=== PATIENT | female | born 1940 | race Asian ===

== ENCOUNTER 2022-08-11 12:06 | Inpatient (IN) | payer MEDICARE, OTHER ==
[~2022-08-11] VITALS: Ht 149.9 cm; Wt 66.2 kg
[2022-08-11 04:10] VITALS: BP 132/68
--- NOTE | 2022-08-11 17:18 | NUR ---
rt note patient rec'd trached on vent. vent settings per previous facility. portex 7 cuffed trach is patent and secured. vent alarms on and audible. bvm bedside. vent plugged in red outlet. no sob noted at this time. will continue to monitor. Addendum: 08/11/22 at 1720 by KENDALL WATSON RT Amended: Links added.
[2022-08-11] MEDS ORDERED: ATOR40TA GT (18:17)
[2022-08-11] MEDS ORDERED: MULT9LIQ5 GT (18:17)
[2022-08-11] MEDS ORDERED: CHLO473M5 MM (18:17)
[2022-08-11] MEDS ORDERED: MERO500V23 IV (18:17)
[2022-08-11] MEDS ORDERED: MODAFINIL GT (18:17)
[2022-08-11] MEDS ORDERED: BUME1TAB8 GT (18:17)
[2022-08-11] MEDS ORDERED: LACO100T2 GT (18:17)
[2022-08-11] MEDS ORDERED: METO5SOL GT (18:17)
[2022-08-11] MEDS ORDERED: VANC1PLA9 IV (18:17)
[2022-08-11] MEDS ORDERED: ACID1TAB12 GT (18:17)
[2022-08-11] MEDS ORDERED: AMAN100T GT (18:17)
[2022-08-11] MEDS ORDERED: BETH50TA2 PO (18:17)
[2022-08-11] MEDS ORDERED: ASCO-495 GT (18:17)
[2022-08-11] MEDS ORDERED: INSU100V11 SQ (18:17)
[2022-08-11] MEDS ORDERED: HYDR-4075 GT (18:17)
[2022-08-11] MEDS ORDERED: LANS30CA56 GT (18:17)
[2022-08-11] MEDS ORDERED: RIVA10TA GT (18:17)
[2022-08-11] MEDS ORDERED: IPRA3AMP23 IH (18:17)
[2022-08-11] MEDS ORDERED: LACO10SO GT (18:17)
[2022-08-11] MEDS ORDERED: METO5TAB7 GT (18:17)
[2022-08-11] MEDS ORDERED: LEVO150T8 GT (18:17)
[2022-08-11] MEDS ORDERED: CARV12.52 GT (18:17)
[2022-08-11] MEDS ORDERED: INSU100V7 SQ (18:17)
[2022-08-11] MEDS ORDERED: ACET650S26 GT (18:17)
[2022-08-11] MEDS ORDERED: NUT.237L30 GT (18:18)
--- NOTE | 2022-08-11 18:50 | NUR ---
Patient admitted from [facility] to [facility] subacute under the services of Dr. Moreno with the following diagnosis: chronic respiratory failure, ventilator dependent, CVA with L sided deficit, UTI, R lower lobe pneumonia, GT, chronic encephalopathy, DM, CAD, permanent pacemaker, hypothyroidism, hyperlipidemia, chronic anemia , biliary drain- Cavernous hemangioma. Patient does not respond to verbal stimulation, but seen opening eyes during repositioning. On ventilator with the following setting AC 12, TV 400, Peep 5, Fi02 25%, O2 sat 96%. Dr. Khan microsoft systems engineer notified of new admission and vent setting. Nos/s of respiratory distress or discomfort. Body check done, noted with sacral unstageable with excoriation and bilateral upper extremity edema. Patient on contact isolation for ESBL of urine, ESBL of biliary fluid and Covid precaution as new admission. Patient will undergo PCR testing and will be repeated in 5-7 days per guidelines. Patients son Shantanu notified of admission, informed that patient with bilateral upper extremity edema and sacral decubitus which will be referred for wound consult. Per report patient received 3 doses of Moderna Covid vaccine; 1st dose on 11/19/20, 2nd dose 12/19/20 and booster on 12/03/21. According to Shantanu(son) he does not think patient had flu vaccine and pneumococcal vaccine, however per report patient is current with flu and pneumococcal but does not have record of date of administration. Spoke and clarified with SAPNA Krause at [facility] regarding physician who will follow patient at [facility]. According to mattress spring encaser, patients daughter would like to transfer the care of patient to Dr. Moreno. Dr. Moreno notified of new admission and verified admission orders. VS 99.9, 86, 14, 144/72. Blood sugar 98mg/dl. Faxed admission orders to [facility] and [facility] pharmacy.. JAMA Bullock notified of new admission to follow-up regarding ATB per Dr. Moreno's request. Endorsed. Dr. Khan, microsoft systems engineer informed of new admission.
--- NOTE | 2022-08-11 20:00 | NUR ---
Patient seen by Carlos Grimes NP for ID with orders to continue Vancomycin 1 gm Q12 hrs and Merrem 500 mg Q6 hrs x 7 days for ESBL urine and biliary fluid.
[2022-08-11] MEDS ORDERED: RIVAROXABAN 15 MG TABLET GT SCH (21:00)
[2022-08-11] MEDS: METOCLOPRAMIDE HCL 10 MG/10 ML UDC GT SCH (21:00)
[2022-08-11] MEDS: PANTOPRAZOLE 40 MG/PACK PACK GT SCH (21:00)
[2022-08-11] MEDS: LACOSAMIDE ORAL SOLN 50 MG/5 ML UDC GT SCH (21:00)
[2022-08-11 21:02] VITALS: BP 139/70
[2022-08-11] MEDS ORDERED: hydrALAZINE HCL 10 MG TABLET GT PRN (21:30)
[2022-08-11] MEDS ORDERED: VANCOMYCIN 1 GM in IV D5W 250ml IV ONE (22:00)
[2022-08-11] MEDS ORDERED: MEROPENEM 500 MG in IV NS 0.9% 50 ML IV ONE (22:00)
[2022-08-11] MEDS: INSULIN GLARGINE, 100 UNIT/ML CARTRIDGE SQ SCH (22:00)
[2022-08-11] MEDS ORDERED: ATORVASTATIN 10 MG TABLET GT SCH (22:00)
[2022-08-12 00:02] VITALS: BP 138/68
[2022-08-12] MEDS: BLOOD SUGAR DIAGNOSTIC 1 EACH STRIP IN SCH ×4 (00:19→18:00)
[2022-08-12] MEDS: ALBUTEROL FS 2.5 MG/0.5 ML VIAL.NEB NEB SCH ×4 (01:49→19:44)
[2022-08-12 04:10] VITALS: BP 132/68
[2022-08-12] MEDS: MEROPENEM 500 MG in IV NS 0.9% 100 ML IV SCH ×3 (05:45)
--- NOTE | 2022-08-12 07:10 | NUR ---
WOUND CARE CONSULT: PT SEEN FOR SKIN ASSESSMENT AND NOTED TO HAVE DUSKY COLOR TO HEELS, DISCOLORATION WITH EDEMA TO UPPER EXTREMITIES, RASH TO GROIN FOLDS AND PERINUEM, NEPHROSTOMY TUBE RT FLANK AREA, G TUBE, KIMBALL CATHETER, TRACH AND SACRAL UNSTAGEABLE PRESSURE ULCER, ALL PRESENT ON ADMISSION. RECOMMEND SURGICAL CONSULT. DR PATRICIA HERRON TO BE CALLED THIS AM. RECOMMENDATIONS MADE FOR SKIN PROTECTION AND WOUND CARE INCLUDING DAKINS MOISTENED KERLIX FOR SACRAL WOUND AND COVER WITH OPTIFOAM SACRAL DRESSING, LOTRIMIN CREAM FOR RASH, Z GUARD MOISTURE BARRIER AND LOW AIRLOSS MATTRESS (ALL ON ORDER). DISCUSSED WOUND CARE AND SKIN PROTECTION RECOMMENDATIONS WITH NURSINNG STAFF. PT NOTED TO BE INCONTINENT OF LOOSE STOOLS. MD IN AGREEMENT WITH PLAN OF CARE.
[2022-08-12] MEDS ORDERED: LEVOTHYROXINE SODIUM 100 MCG TABLET PO SCH (07:30)
[2022-08-12 07:51] VITALS: BP 145/67
--- NOTE | 2022-08-12 08:30 | NUR ---
Notified Dr Moreno that Novolog is not available from the pharmacy, regular insulin is available. Dr Moreno ordered to change Novolog to regular insulin with the same sliding scale.
--- NOTE | 2022-08-12 08:30 | NUR ---
Informed Dr Khan that pt has a Portex #7 trach but a different model than the available Portex #[address] Khan said it is fine to change the trach to the available Portex #7. Notified RT Adam. Dr Khan also ordered ABG and CXR.
[2022-08-12] MEDS: METOCLOPRAMIDE HCL 10 MG/10 ML UDC GT SCH ×2 (08:55→20:52)
[2022-08-12] MEDS: PANTOPRAZOLE 40 MG/PACK PACK GT SCH ×2 (08:55→20:52)
[2022-08-12] MEDS: MULTIVITAMINS,THERAGRAN 1 UDTAB TABLET GT SCH (08:55)
[2022-08-12] MEDS: ACIDOPHILUS/BULGARICUS 1 EACH TAB.CHEW GT SCH ×2 (08:55→20:52)
[2022-08-12] MEDS: ASCORBIC ACID SYRUP 500 MG/5 ML UDC GT SCH (08:55)
[2022-08-12] MEDS: Z GUARD REMEDY 2 OZ OINT TP SCH ×2 (08:55→21:25)
[2022-08-12] MEDS: MODAFINIL 100 MG TABLET GT SCH (08:55)
[2022-08-12] MEDS: BUMETANIDE (1 MG) 1 MG TABLET GT SCH (09:00)
[2022-08-12] MEDS ORDERED: RIVAROXABAN 15 MG TABLET GT SCH (09:00)
[2022-08-12] MEDS ORDERED: LACOSAMIDE ORAL SOLN 50 MG/5 ML UDC GT SCH (09:00)
[2022-08-12] MEDS: CLOTRIMAZOLE 1% 15 GM TUBE TP SCH ×2 (09:00→21:00)
[2022-08-12] MEDS: METOLAZONE 2.5 MG TABLET GT SCH (09:00)
[2022-08-12] MEDS ORDERED: BETHANECHOL CHLORIDE (25 MG) 25 MG TABLET GT SCH (09:00)
[2022-08-12] MEDS: DAKINS QUARTER STRENGTH (0.125%) 480 ML BOTTLE TOP SCH (09:00)
[2022-08-12] MEDS: AMANTADINE SUSP 50 MG/5 ML UDC GT SCH (09:00)
--- NOTE | 2022-08-12 09:05 | NUR ---
Received recommendations from CONCHIS Ross. Relayed recommendations to Dr Moreno. He ordered to increase GT feeding Glucerna 1.2 from 35 to 75 mL/hr x 20 hours a day, give Prostat 30 mL GT BID, MVI with minerals, Vitamin C and zinc sulfate. Also received order to give Acetaminophen 650 mg GT daily 30 minutes prior to wound treatment.
[2022-08-12] MEDS: HYDROGEN PEROXIDE 480 ML BOTTLE TP SCH ×2 (09:24→20:09)
[2022-08-12 09:49] LABS: CALCIUM, SERUM 8.4 mg/dL (8.5-10.1); CARBON DIOXIDE 23 mmol/L (21-32); CHLORIDE 101 mmol/L (98-107); CREATININE 0.5 mg/dL (0.6-1.3); GLUCOSE 139 mg/dL (74-106); POTASSIUM 3.8 mmol/L (3.5-5.1); SODIUM SERUM 132 mmol/L (136-145); UREA NITROGEN, BLOOD 21 mg/dL (7-18)
[2022-08-12] MEDS ORDERED: VANCOMYCIN 1 GM in IV D5W 250 ML IV SCH (10:00)
[2022-08-12] MEDS ORDERED: GLUCERNA 1.2 1,000 ML BOTTLE GT SCH (10:30)
[2022-08-12 10:46] LABS: BASOPHILS # (AUTO) 0.1 K/uL (0.0-0.2); BASOPHILS % (AUTO) 0.7 % (0.0-2.0); EOSINOPHILS % (AUTO) 2.7 % (0.0-6.0); HEMATOCRIT 28 % (33-45); HEMOGLOBIN 9.3 g/dL (11.5-14.8); LYMPHOCYTES # (AUTO) 1.5 K/uL (0.8-4.8); LYMPHOCYTES % (AUTO) 18.3 % (20.0-44.0); MEAN CORPUSCULAR HGB CONC 33 g/dl (31.0-36.0); MEAN CORPUSCULAR VOLUME 99 fL (82-100); MONOCYTES # (AUTO) 0.6 K/uL (0.1-1.30); MONOCYTES % (AUTO) 7.3 % (2.0-12.0); NEUTROPHILS # (AUTO) 5.7 K/uL (1.8-8.9); PLATELET COUNT (AUTO) 312 K/uL (150-450); RED BLOOD CELL COUNT(AUTO) 2.88 MIL/uL (4.0-5.2)
[2022-08-12] MEDS: VANCOMYCIN 1 GM in IV D5W 250 ML IV SCH ×2 (10:52→22:00)
--- NOTE | 2022-08-12 11:00 | NUR ---
Called son, Nagibrayan Wilburn, and discussed Subacute Baseline Resident Care Plan over the phone. Son thankful for information and said he will visit soon.
--- NOTE | 2022-08-12 11:00 | NUR ---
Pt on droplet and contact isolation for Covid precaution, contact isolation for ESBL urine, ESBL biliary drain, ESBL wound, MDRO E coli sputum. Education provided to staff regarding isolation precautions, use of PPEs, proper hand hygiene.
--- NOTE | 2022-08-12 11:25 | NUR ---
Seen by Dr Moreno. Relayed BMP result to him. He ordered to do CBC for baseline. He also clarified Xarelto. According to medical records from [facility], pt was receiving Xarelto 20 mg daily instead of 15 mg BID. Medication administration record dated 08/11/20 also showed pt received Xarelto [address] Moreno ordered to DC Xarelto 15 mg BID and change to 20 mg daily.
[2022-08-12] MEDS ORDERED: BETHANECHOL CHLORIDE (25 MG) 25 MG TABLET GT PRN (11:48)
[2022-08-12] MEDS: MEROPENEM 500 MG in IV NS 0.9% 50 ML IV SCH ×3 (12:00→23:55)
[2022-08-12] MEDS: CARVEDILOL 6.25 MG TABLET GT SCH ×2 (12:00→20:52)
[2022-08-12 12:11] VITALS: BP 132/65
--- NOTE | 2022-08-12 12:22 | NUR ---
Relayed ABG result to Dr Khan. No new order.
[2022-08-12] MEDS ORDERED: DEXTROSE 50%-WATER 50 ML DISP.SYRIN IV PRN (13:00)
[2022-08-12] MEDS ORDERED: RIVAROXABAN 10 MG TABLET PO SCH ×3 (13:00→18:00)
[2022-08-12] MEDS: INSULIN REGULAR, HUMAN 100 UNIT/ML 3 ML VIAL SQ PRN ×3 (13:12→19:06)
--- NOTE | 2022-08-12 13:52 | NUR ---
Called pt's son Shantanu to offer bivalent Covid, influenza, and pneumococcal vaccines. Left message.
--- NOTE | 2022-08-12 14:12 | NUR ---
RT NOTE: PT TRACH CHANGE WAS NOT DONE BECAUSE THE INNER CANULA IS THE SAME WHAT WE HAVE. INITIALLY THE TRACH CHANGE WAS REQUESTED BECAUSE ASSUMPTION THAT THE PT CURRENT TRACH IS NOT COMPATIBLE WITH WHAT WE HAVE. CHARGE NURSE JOHN WAS NOTIFIED.
--- NOTE | 2022-08-12 16:30 | NUR ---
INTAKE PAPERWORK: SUNDAY called the pt.'s ", Zach Wilburn [phone] and it sounds disconnected. SUNDAY called the pt.'s son, Nagi Wilburn [phone] who stated he is the responsible constitution party for the pt. SUNDAY called Nagi to review the intake paperwork: (Patient Right's Acknowledgement, Documentation of Preferred Intensity of Care, Conditions of Admission, [facility] Agreement, and Voluntary Prior Express Consent form and An Important Message from Medicare) and gather collateral information. Nagi stated that the pt. 's code status should be Full Code: Maximum Treatment and CPR. Nagi stated it was not a good time to speak extensively. SUNDAY will call Nagi another time to complete biopsychosocial assessment. Nagi requested SW leave Intake paperwork in pt.'s chart so he may sign it upon visiting. SUNDAY placed intake paperwork in chart and notified charge nurse, Laya. SUNDAY will provide Nagi & family with Bill of Rights, visitation guidelines, vaccination information as needed and [facility] educational material.
[2022-08-12] MEDS ORDERED: PROSOURCE / PROSTAT (PYXIS) 30 ML UDC GT SCH (17:00)
[2022-08-12] MEDS: PROSOURCE / PROSTAT (PYXIS) 30 ML UDC GT SCH (17:00)
[2022-08-12] MEDS: LACOSAMIDE ORAL SOLN 50 MG/5 ML UDC GT SCH ×2 (18:00→21:25)
--- NOTE | 2022-08-12 18:10 | NUR ---
Shantanu Wilburn called back. Offered influenza, pneumococcal, and bivalent Covid vaccines. He said his sister is the one making medical decisions. Called Tana but she did not answer.
--- NOTE | 2022-08-12 19:10 | NUR ---
Vimpat and Coreg were not administered at 0900 as scheduled due to unavailability. Charge nurse called the pharmacy to ask for medications, pt's RN also called pharmacy for medications. Pt's RN asked 2 pharmacy technicians as well. Vimpat was loaded in the [employer] late this afternoon and was administered. Pt was stable throughout this shift. Addendum: 08/12/22 at 1925 by KRISTAN THOMPSON RN Synthroid was also not available, also asked pharmacy for it.
[2022-08-12] MEDS ORDERED: TUBERCULIN,PURIF.PROT.DERIV. 5 TU/0.1 ML VIAL ID ONE (20:00)
[2022-08-12 20:54] VITALS: BP 141/68
[2022-08-12 20:58] VITALS: BP 104/50
[2022-08-12] MEDS ORDERED: ATORVASTATIN 40 MG TABLET ONE (21:00)
[2022-08-12] MEDS: TRIAMCINOLONE ACETONIDE 0.1% CR 15 GM TUBE TP SCH (21:00)
[2022-08-12] MEDS: VITAMINS A AND D 56.7 GM TUBE TP SCH ×2 (21:25→21:26)
[2022-08-12] MEDS: INSULIN GLARGINE, 100 UNIT/ML CARTRIDGE SQ SCH (21:26)
[2022-08-12] MEDS: ATORVASTATIN 40 MG TABLET GT SCH (21:26)
[2022-08-13] MEDS: BLOOD SUGAR DIAGNOSTIC 1 EACH STRIP IN SCH ×5 (00:10→23:25)
[2022-08-13] MEDS: INSULIN REGULAR, HUMAN 100 UNIT/ML 3 ML VIAL SQ PRN ×5 (00:14→23:26)
[2022-08-13 00:32] VITALS: BP 142/67
[2022-08-13] MEDS: ALBUTEROL FS 2.5 MG/0.5 ML VIAL.NEB NEB SCH ×4 (01:34→18:48)
[2022-08-13 04:30] VITALS: BP 138/60
[2022-08-13] MEDS: MEROPENEM 500 MG in IV NS 0.9% 50 ML IV SCH ×3 (05:46→18:02)
[2022-08-13] MEDS: LEVOTHYROXINE SODIUM 75 MCG TABLET PO SCH (07:30)
[2022-08-13 07:34] VITALS: BP 155/76
[2022-08-13] MEDS: HYDROGEN PEROXIDE 480 ML BOTTLE TP SCH ×2 (07:47→20:22)
--- NOTE | 2022-08-13 08:55 | NUR ---
RT Pt received on ordered vent settings. Breathing tx is given and tolerated well. Pt is suctioned. Trach patent and secured. Vent plugged into red outlet. Ambu bag and back up trach at bedside. Alarms are set and audible. No SOB or respiratory distress noted at this time. will continue to monitor
[2022-08-13] MEDS: PANTOPRAZOLE 40 MG/PACK PACK GT SCH ×2 (09:00→21:11)
[2022-08-13] MEDS: ACETAMINOPHEN 650 MG/20 ML UDC- SA PATIENTS-PAIN ONLY GT SCH (09:00)
[2022-08-13] MEDS: PROSOURCE / PROSTAT (PYXIS) 30 ML UDC GT SCH ×2 (09:00→17:31)
[2022-08-13] MEDS: MODAFINIL 100 MG TABLET GT SCH (09:00)
[2022-08-13] MEDS: BUMETANIDE (1 MG) 1 MG TABLET GT SCH (09:00)
[2022-08-13] MEDS ORDERED: ASCORBIC ACID 500 MG TABLET GT SCH (09:00)
[2022-08-13] MEDS: ACIDOPHILUS/BULGARICUS 1 EACH TAB.CHEW GT SCH ×2 (09:00→21:11)
[2022-08-13] MEDS: CARVEDILOL 6.25 MG TABLET GT SCH ×2 (09:00→21:11)
[2022-08-13] MEDS: AMANTADINE SUSP 50 MG/5 ML UDC GT SCH (09:00)
[2022-08-13] MEDS: MULTIVITAMINS,THERAGRAN 1 UDTAB TABLET GT SCH (09:00)
[2022-08-13] MEDS: METOLAZONE 2.5 MG TABLET GT SCH (09:00)
[2022-08-13] MEDS: LACOSAMIDE ORAL SOLN 50 MG/5 ML UDC GT SCH ×2 (09:00→21:11)
[2022-08-13] MEDS: METOCLOPRAMIDE HCL 10 MG/10 ML UDC GT SCH ×2 (09:00→21:11)
[2022-08-13] MEDS: ZINC SULFATE 220 MG CAPSULE GT SCH (09:00)
[2022-08-13] MEDS: ASCORBIC ACID SYRUP 500 MG/5 ML UDC GT SCH (09:00)
[2022-08-13] MEDS: RIVAROXABAN 10 MG TABLET PO SCH (09:00)
--- NOTE | 2022-08-13 09:19 | NUR ---
Notified by laboratory staff that they are having difficulty obtaining blood sample for Vanco level, notified [facility] pharmacist who said to hold Vancomycin until level is obtain.
[2022-08-13] MEDS: DAKINS QUARTER STRENGTH (0.125%) 480 ML BOTTLE TOP SCH ×2 (10:00→21:16)
[2022-08-13] MEDS: Z GUARD REMEDY 2 OZ OINT TP SCH ×3 (10:00→21:13)
[2022-08-13] MEDS: VITAMINS A AND D 56.7 GM TUBE TP SCH ×4 (10:00→21:14)
[2022-08-13] MEDS: TRIAMCINOLONE ACETONIDE 0.1% CR 15 GM TUBE TP SCH ×2 (10:00→21:11)
[2022-08-13] MEDS: CLOTRIMAZOLE 1% 15 GM TUBE TP SCH ×2 (10:00→21:11)
[2022-08-13 10:09] LABS: ABG BASE EXCESS -0.2 mmol/L; ABG OXYGEN SATURATION 95.8 % (92.0-98.5); ABG PCO2 30.1 mmHg (35.0-45.0); ABG PH 7.491 (7.350-7.450); ABG PO2 81.5 mmHg (75.0-100.0); COHb 0.3 % (0.5-1.5); O2Hb 95.5 % (94.0-97.0); SITE, ABG Left Radial; VENT MODE, BG AC 12 400 +5 25%
[2022-08-13 10:27] LABS: CALCIUM, SERUM 8.5 mg/dL (8.5-10.1); CARBON DIOXIDE 26 mmol/L (21-32); CHLORIDE 99 mmol/L (98-107); CREATININE 0.5 mg/dL (0.6-1.3); GLUCOSE 132 mg/dL (74-106); POTASSIUM 3.3 mmol/L (3.5-5.1); SODIUM SERUM 134 mmol/L (136-145); UREA NITROGEN, BLOOD 22 mg/dL (7-18)
[2022-08-13] MEDS: VANCOMYCIN 1 GM in IV D5W 250 ML IV SCH (11:30)
[2022-08-13 11:40] VITALS: BP 97/52
[2022-08-13 11:43] VITALS: BP 135/73
--- NOTE | 2022-08-13 11:49 | NUR ---
SS NOTE: SW called the pt.'s son, Nagi Wilburn [phone] to invite him to participate in today IDT meeting and laso complete the biopsychosocial assessment. Call went to voicemail and SW relayed information and asked if he as time today to complete assessment with SW. SW will be available as needed.
--- NOTE | 2022-08-13 13:44 | NUR ---
Dr. Khan reviewed BMP result with K+ 3.3, Na134, BUN 22, Creat 0.5. New order given to give KCL 40 meq. x1 via GT. It was also discussed current feeding order which is at 75cc/hr. Upon review of patient's labs, physical condition, trailer sections assembler recommended to feeding to 50cc/hr. and will gradually increase as tolerated until patient reaches nutritional goal.
--- NOTE | 2022-08-13 13:53 | NUR ---
Vancomycin 1gm. held due to Vanco level trough of 23 ug/ml Pharmacy adjusted and decrease dose to Vancomycin 750 mg. IV q 12 hours to complete total of 7 days. Order carried out.
--- NOTE | 2022-08-13 14:23 | NUR ---
INTERDISCIPLINARY PLAN OF CARE CONFERENCE took place today. The pt.'s son, Nagi Wilburn [phone] Khan and Interdisciplinary team discussed the plan of care in detail. Current orders as well as treatments and medications were reviewed. Per CRN, the tp. has pacemaker and information needed about it. SW will follow up.
[2022-08-13] MEDS: VANCOMYCIN HCL 0.75 GM in IV D5W 250 ML IV SCH (14:42)
[2022-08-13] MEDS: GLUCERNA 1.2 1,000 ML BOTTLE GT SCH (14:42)
[2022-08-13] MEDS ORDERED: POTASSIUM CHLORIDE 20 MEQ POWDER PACKET GT ONE (15:00)
--- NOTE | 2022-08-13 16:56 | NUR ---
Pacemaker update: Per responsible alliance party, Nagi's request. SW called : [facility] [[address] [place] [address] ] where pt. was residing before and spoke to the SW about mailing the pacemaker monitor to [facility]. SW stated they would mail to to [facility] on Tuesday. noted.
--- NOTE | 2022-08-13 16:58 | NUR ---
Daughter: Gloria Larson [phone] who resides in [place] may also be contacted, per Nagi.
--- NOTE | 2022-08-13 17:00 | NUR ---
Visitation Guidelines & vaccine information: SUNDAY educated the pt.'s son, Shantanu Wilburn [phone] over the phone prior to his visit today at 6 pm on visitation guidelines and he expressed understating and stated he would provide the necessary document for visiting. SUNDAY printed the visitation guidelines, pneumonia vaccine information sheet, flu vaccine information sheet and left it with intake paperwork for pt.'s son to pick remover today upon his visit at 6 pm.
--- NOTE | 2022-08-13 17:01 | NUR ---
SS assessment: SUNDAY completed biopsychosocial assessment with the pt.'s son, Nagi [phone] who provided pt.'s history. Nagi stated he will be visiting the pt. buck between 6-8 pm and he will be signing the intake paperwork. SUNDAY notified marketing secretary, Bobbi about visit and charge nurse, Hayden about paperwork, medical records form to be signed and pacemaker status. Pt. met with pt. at bedside on 08/11/2022. The pt. appears well-groomed with eyes closed. Pt. did not respond to name or verbal cues. Pt. is non-communicative. Pt. has trach to vent with g-tube feeding. The pt. will be referred for dental, and optometry exams as needed.
--- NOTE | 2022-08-13 18:22 | NUR ---
Resident's son Shantanu visited and signed admission paper works. Patient's daughter Tana called and answered questions regarding patient's overall condition, medications, antibiotic order, isolation, infection and skin condition. Asked daughter regarding when and where biliary drain was placed; if patient has current flu and pneumococcal vaccine and if patient is current with her Covid vaccine. According to Tana, patient's biliary drain was placed at [facility] sometime in May towards the end of her stay. She suggested to contact [facility] to get the flu and pneumococcal vaccine information. She said she is not sure if patient received it, however if patient did not receive flu and pneumococcal at [facility] this season she is giving consent for the facility to administer it. Tana said patient received a 4th dose of Covid vaccine at [facility] in [facility] in [place]. Will have SSD follow-up and request information from [facility] and [facility] on Tuesday. Endorsed.
[2022-08-13 19:16] VITALS: BP 129/65
--- NOTE | 2022-08-13 20:35 | NUR ---
RT NOTE RECEIVED PT ON MD ORDERED [facility] VENT SETTINGS. TX GIVEN, PRN SX DONE. DENTAL EQUIPMENT REPAIRER PREFORMED. VENT PLUGGED INTO RED OUTLET. AMBUBAG AND BACKUP 7.0 PORTEX TRACH BY BEDSIDE. NO S/S OF RESPIRATORY DISTRESS NOTED.
[2022-08-13] MEDS: SILVER SULFADIAZINE CREAM 25 GM TUBE TP SCH (21:14)
[2022-08-13] MEDS: ATORVASTATIN 40 MG TABLET GT SCH (21:14)
[2022-08-13] MEDS: INSULIN GLARGINE, 100 UNIT/ML CARTRIDGE SQ SCH (21:15)
[2022-08-14 00:25] VITALS: BP 132/60
[2022-08-14] MEDS: ALBUTEROL FS 2.5 MG/0.5 ML VIAL.NEB NEB SCH ×4 (00:44→19:56)
[2022-08-14] MEDS: VANCOMYCIN HCL 0.75 GM in IV D5W 250 ML IV SCH ×2 (02:00→14:58)
[2022-08-14 04:15] VITALS: BP 133/56
[2022-08-14] MEDS: BLOOD SUGAR DIAGNOSTIC 1 EACH STRIP IN SCH ×4 (05:32→23:37)
[2022-08-14] MEDS: INSULIN REGULAR, HUMAN 100 UNIT/ML 3 ML VIAL SQ PRN ×4 (05:32→23:38)
[2022-08-14 05:33] VITALS: BP 127/64
[2022-08-14] MEDS: MEROPENEM 500 MG in IV NS 0.9% 50 ML IV SCH ×5 (05:53→18:27)
[2022-08-14 07:21] VITALS: BP 135/55
[2022-08-14 07:47] LABS: CALCIUM, SERUM 8.3 mg/dL (8.5-10.1); CARBON DIOXIDE 27 mmol/L (21-32); CHLORIDE 98 mmol/L (98-107); CREATININE 0.5 mg/dL (0.6-1.3); GLUCOSE 132 mg/dL (74-106); POTASSIUM 3.2 mmol/L (3.5-5.1); SODIUM SERUM 133 mmol/L (136-145); UREA NITROGEN, BLOOD 29 mg/dL (7-18)
[2022-08-14] MEDS: LEVOTHYROXINE SODIUM 75 MCG TABLET PO SCH (07:58)
[2022-08-14] MEDS ORDERED: LEVOTHYROXINE SODIUM 75 MCG TABLET PO SCH (08:09)
[2022-08-14] MEDS: ACETAMINOPHEN 650 MG/20 ML UDC- SA PATIENTS-PAIN ONLY GT SCH (08:12)
[2022-08-14] MEDS: AMANTADINE SUSP 50 MG/5 ML UDC GT SCH (08:12)
[2022-08-14] MEDS: METOCLOPRAMIDE HCL 10 MG/10 ML UDC GT SCH ×2 (08:12→20:52)
[2022-08-14] MEDS: MODAFINIL 100 MG TABLET GT SCH (08:12)
[2022-08-14] MEDS: RIVAROXABAN 10 MG TABLET PO SCH (08:12)
[2022-08-14] MEDS: ZINC SULFATE 220 MG CAPSULE GT SCH (08:12)
[2022-08-14] MEDS: ACIDOPHILUS/BULGARICUS 1 EACH TAB.CHEW GT SCH ×2 (08:12→20:52)
[2022-08-14] MEDS: LACOSAMIDE ORAL SOLN 50 MG/5 ML UDC GT SCH ×2 (08:12→20:53)
[2022-08-14] MEDS: BUMETANIDE (1 MG) 1 MG TABLET GT SCH (08:12)
[2022-08-14] MEDS: MULTIVITAMINS,THERAGRAN 1 UDTAB TABLET GT SCH (08:12)
[2022-08-14] MEDS: PROSOURCE / PROSTAT (PYXIS) 30 ML UDC GT SCH ×2 (08:12→17:11)
[2022-08-14] MEDS: CARVEDILOL 6.25 MG TABLET GT SCH ×2 (08:12→20:52)
[2022-08-14] MEDS: PANTOPRAZOLE 40 MG/PACK PACK GT SCH ×2 (08:12→20:52)
[2022-08-14] MEDS: METOLAZONE 2.5 MG TABLET GT SCH (08:12)
[2022-08-14] MEDS: HYDROGEN PEROXIDE 480 ML BOTTLE TP SCH ×2 (08:21→19:56)
[2022-08-14] MEDS: DAKINS QUARTER STRENGTH (0.125%) 480 ML BOTTLE TOP SCH ×2 (08:59→21:00)
[2022-08-14] MEDS: VITAMINS A AND D 56.7 GM TUBE TP SCH ×4 (08:59→21:00)
[2022-08-14] MEDS: SILVER SULFADIAZINE CREAM 25 GM TUBE TP SCH ×2 (08:59→21:00)
[2022-08-14] MEDS: CLOTRIMAZOLE 1% 15 GM TUBE TP SCH ×2 (08:59→20:57)
[2022-08-14] MEDS: Z GUARD REMEDY 2 OZ OINT TP SCH ×4 (08:59→21:00)
[2022-08-14] MEDS: TRIAMCINOLONE ACETONIDE 0.1% CR 15 GM TUBE TP SCH ×2 (08:59→20:56)
[2022-08-14 11:17] VITALS: BP 112/53
[2022-08-14] MEDS: GLUCERNA 1.2 1,000 ML BOTTLE GT SCH (14:25)
[2022-08-14] MEDS ORDERED: POTASSIUM CHLORIDE 20 MEQ POWDER PACKET GT ONE (15:00)
--- NOTE | 2022-08-14 17:41 | NUR ---
Obtained BP 137/70 mmHg, HR 66. Parameter for Hydralazine PRN medication not met. Will endorse to incoming NOC nurse.
[2022-08-14 20:09] VITALS: BP 160/76
[2022-08-14] MEDS: INSULIN GLARGINE, 100 UNIT/ML CARTRIDGE SQ SCH (21:13)
[2022-08-14] MEDS: ATORVASTATIN 40 MG TABLET GT SCH (21:14)
[2022-08-15] MEDS: MEROPENEM 500 MG in IV NS 0.9% 50 ML IV SCH ×4 (00:16→17:44)
[2022-08-15 00:59] VITALS: BP 116/57
[2022-08-15] MEDS: ALBUTEROL FS 2.5 MG/0.5 ML VIAL.NEB NEB SCH ×4 (01:50→19:50)
[2022-08-15] MEDS: VANCOMYCIN HCL 0.75 GM in IV D5W 250 ML IV SCH ×2 (03:23→14:06)
[2022-08-15] MEDS: BLOOD SUGAR DIAGNOSTIC 1 EACH STRIP IN SCH ×3 (05:32→18:46)
[2022-08-15] MEDS: LEVOTHYROXINE SODIUM 75 MCG TABLET PO SCH (05:33)
[2022-08-15] MEDS: INSULIN REGULAR, HUMAN 100 UNIT/ML 3 ML VIAL SQ PRN ×3 (05:36→18:48)
[2022-08-15 07:14] VITALS: BP 127/42
[2022-08-15 08:03] LABS: CALCIUM, SERUM 8.4 mg/dL (8.5-10.1); CARBON DIOXIDE 30 mmol/L (21-32); CHLORIDE 97 mmol/L (98-107); CREATININE 0.5 mg/dL (0.6-1.3); GLUCOSE 119 mg/dL (74-106); POTASSIUM 3.2 mmol/L (3.5-5.1); SODIUM SERUM 132 mmol/L (136-145); UREA NITROGEN, BLOOD 30 mg/dL (7-18)
[2022-08-15] MEDS: HYDROGEN PEROXIDE 480 ML BOTTLE TP SCH ×2 (09:03→19:50)
[2022-08-15] MEDS: BUMETANIDE (1 MG) 1 MG TABLET GT SCH (09:03)
[2022-08-15] MEDS: MODAFINIL 100 MG TABLET GT SCH (09:04)
[2022-08-15] MEDS: CARVEDILOL 6.25 MG TABLET GT SCH ×2 (09:04→21:41)
[2022-08-15] MEDS: PANTOPRAZOLE 40 MG/PACK PACK GT SCH ×2 (09:05→21:41)
[2022-08-15] MEDS: METOLAZONE 2.5 MG TABLET GT SCH (09:05)
[2022-08-15] MEDS: METOCLOPRAMIDE HCL 10 MG/10 ML UDC GT SCH ×2 (09:05→21:41)
[2022-08-15] MEDS: RIVAROXABAN 10 MG TABLET PO SCH (09:07)
[2022-08-15] MEDS: ZINC SULFATE 220 MG CAPSULE GT SCH (09:07)
[2022-08-15] MEDS: Z GUARD REMEDY 2 OZ OINT TP SCH ×4 (09:08→21:42)
[2022-08-15] MEDS: DAKINS QUARTER STRENGTH (0.125%) 480 ML BOTTLE TOP SCH ×2 (09:08→21:41)
[2022-08-15] MEDS: ASCORBIC ACID 500 MG TABLET GT SCH (09:08)
[2022-08-15] MEDS: CLOTRIMAZOLE 1% 15 GM TUBE TP SCH ×2 (09:08→21:42)
[2022-08-15] MEDS: TRIAMCINOLONE ACETONIDE 0.1% CR 15 GM TUBE TP SCH ×2 (09:08→21:42)
[2022-08-15] MEDS: VITAMINS A AND D 56.7 GM TUBE TP SCH ×4 (09:12→21:43)
[2022-08-15] MEDS: MULTIVITAMINS,THERAGRAN 1 UDTAB TABLET GT SCH (09:12)
[2022-08-15] MEDS: SILVER SULFADIAZINE CREAM 25 GM TUBE TP SCH ×2 (09:12→21:42)
[2022-08-15] MEDS: PROSOURCE / PROSTAT (PYXIS) 30 ML UDC GT SCH ×2 (09:12→17:45)
[2022-08-15] MEDS: ACIDOPHILUS/BULGARICUS 1 EACH TAB.CHEW GT SCH ×2 (09:12→21:41)
[2022-08-15] MEDS: AMANTADINE SUSP 50 MG/5 ML UDC GT SCH (09:17)
[2022-08-15] MEDS: LACOSAMIDE ORAL SOLN 50 MG/5 ML UDC GT SCH ×2 (09:18→21:41)
[2022-08-15] MEDS: ACETAMINOPHEN 650 MG/20 ML UDC- SA PATIENTS-PAIN ONLY GT SCH (09:18)
--- NOTE | 2022-08-15 10:18 | NUR ---
Pt. received on ordered vent settings. Breathing tx. is given and tolerated well. Sx 2x + PRN. Trach is patent, midline and secured. Vent plugged into red outlet. Ambu bag and back up trach at bedside. Alarms are set and audible. No SOB or respiratory distress noted at this time. Will keep monitor the pt.
--- NOTE | 2022-08-15 11:30 | NUR ---
Called and notified Dr. Moreno regarding lab results, pharmacy has recommendation to give 40 meq klor con powder packet via GT X 1 dose only for K+ 3.2. Dr. Moreno agreed to it. New order noted and carried out.
[2022-08-15 11:44] VITALS: BP 113/52
[2022-08-15] MEDS ORDERED: POTASSIUM CHLORIDE 20 MEQ POWDER PACKET GT ONE (14:00)
[2022-08-15 19:54] VITALS: BP 118/51
[2022-08-15] MEDS ORDERED: LACOSAMIDE ORAL SOLN 50 MG/5 ML UDC ONE (20:42)
[2022-08-15] MEDS: ATORVASTATIN 40 MG TABLET GT SCH (21:43)
[2022-08-15] MEDS: INSULIN GLARGINE, 100 UNIT/ML CARTRIDGE SQ SCH (21:47)
[2022-08-16] MEDS: INSULIN REGULAR, HUMAN 100 UNIT/ML 3 ML VIAL SQ PRN ×3 (00:51→17:50)
[2022-08-16] MEDS: BLOOD SUGAR DIAGNOSTIC 1 EACH STRIP IN SCH ×4 (00:51→17:09)
[2022-08-16] MEDS: ALBUTEROL FS 2.5 MG/0.5 ML VIAL.NEB NEB SCH ×4 (01:44→19:00)
[2022-08-16] MEDS: VANCOMYCIN HCL 0.75 GM in IV D5W 250 ML IV SCH ×2 (02:00→14:24)
[2022-08-16] MEDS: GLUCERNA 1.2 1,000 ML BOTTLE GT SCH (02:09)
[2022-08-16] MEDS: LEVOTHYROXINE SODIUM 75 MCG TABLET PO SCH (05:13)
[2022-08-16] MEDS: MEROPENEM 500 MG in IV NS 0.9% 50 ML IV SCH ×6 (06:31→23:15)
[2022-08-16 07:12] VITALS: BP 150/75
[2022-08-16] MEDS: MODAFINIL 100 MG TABLET GT SCH (08:19)
[2022-08-16] MEDS: PROSOURCE / PROSTAT (PYXIS) 30 ML UDC GT SCH ×2 (08:19→17:09)
[2022-08-16] MEDS: ACIDOPHILUS/BULGARICUS 1 EACH TAB.CHEW GT SCH ×2 (08:19→21:23)
[2022-08-16] MEDS: METOCLOPRAMIDE HCL 10 MG/10 ML UDC GT SCH ×2 (08:19→21:14)
[2022-08-16] MEDS: CARVEDILOL 6.25 MG TABLET GT SCH ×2 (08:19→21:13)
[2022-08-16] MEDS: BUMETANIDE (1 MG) 1 MG TABLET GT SCH (08:19)
[2022-08-16] MEDS: PANTOPRAZOLE 40 MG/PACK PACK GT SCH ×2 (08:19→21:13)
[2022-08-16] MEDS: MULTIVITAMINS,THERAGRAN 1 UDTAB TABLET GT SCH (08:19)
[2022-08-16] MEDS: ASCORBIC ACID 500 MG TABLET GT SCH (08:20)
[2022-08-16] MEDS: ZINC SULFATE 220 MG CAPSULE GT SCH (08:20)
[2022-08-16] MEDS: ACETAMINOPHEN 650 MG/20 ML UDC- SA PATIENTS-PAIN ONLY GT SCH (08:20)
[2022-08-16] MEDS: RIVAROXABAN 10 MG TABLET PO SCH (08:21)
[2022-08-16] MEDS: VITAMINS A AND D 56.7 GM TUBE TP SCH ×4 (08:22→21:16)
[2022-08-16] MEDS: Z GUARD REMEDY 2 OZ OINT TP SCH ×4 (08:27→21:15)
[2022-08-16] MEDS: METOLAZONE 2.5 MG TABLET GT SCH (08:27)
[2022-08-16] MEDS: LACOSAMIDE ORAL SOLN 50 MG/5 ML UDC GT SCH ×2 (09:00→21:14)
[2022-08-16] MEDS: TRIAMCINOLONE ACETONIDE 0.1% CR 15 GM TUBE TP SCH ×2 (09:00→21:15)
[2022-08-16] MEDS: AMANTADINE SUSP 50 MG/5 ML UDC GT SCH (09:00)
[2022-08-16] MEDS: CLOTRIMAZOLE 1% 15 GM TUBE TP SCH ×2 (09:00→21:15)
[2022-08-16] MEDS: DAKINS QUARTER STRENGTH (0.125%) 480 ML BOTTLE TOP SCH ×2 (09:00→21:15)
[2022-08-16] MEDS: SILVER SULFADIAZINE CREAM 25 GM TUBE TP SCH ×2 (09:00→21:16)
[2022-08-16] MEDS: HYDROGEN PEROXIDE 480 ML BOTTLE TP SCH ×2 (09:45→20:52)
[2022-08-16 12:04] VITALS: BP 140/72
--- NOTE | 2022-08-16 12:08 | NUR ---
[facility] medical Records: The pt.'s son, Nagi signed the Authorization for disclosure of health information. SUNDAY faxed paperwork to [facility] medical records dept. fax: [phone] per 's request to obtain medical records for continuity of care. SUNDAY will follow up as needed.
[2022-08-16 12:16] LABS: CALCIUM, SERUM 8.4 mg/dL (8.5-10.1); CARBON DIOXIDE 35 mmol/L (21-32); CHLORIDE 94 mmol/L (98-107); CREATININE 0.4 mg/dL (0.6-1.3); GLUCOSE 129 mg/dL (74-106); POTASSIUM 3.1 mmol/L (3.5-5.1); SODIUM SERUM 134 mmol/L (136-145); UREA NITROGEN, BLOOD 27 mg/dL (7-18)
--- NOTE | 2022-08-16 12:42 | NUR ---
SW called : [facility] [[address] [place] [address] ] medical records to obtain vaccine records and no answer. SW will call back at a later time.
--- NOTE | 2022-08-16 12:48 | NUR ---
Per CRN request SUNDAY called [facility] [[address] [place] [address]; [phone]] and requested thept.'s COVID-19 vaccinations records to be faxed to SUNDAY. Per [facility] they will fax the vaccination records to SUNDAY.
--- NOTE | 2022-08-16 14:35 | NUR ---
SUNDAY received records from [facility] regarding Moderna COVID-19 vaccine last administered on 12/03/2021 . SUNDAY notified Laya BLOCK and it was placed int pt.'s chart under misc. records.
[2022-08-16] MEDS ORDERED: POTASSIUM CHLORIDE 20 MEQ POWDER PACKET GT ONE (15:00)
[2022-08-16 20:02] VITALS: BP 127/51
[2022-08-16] MEDS: ATORVASTATIN 40 MG TABLET GT SCH (21:16)
[2022-08-16] MEDS: INSULIN GLARGINE, 100 UNIT/ML CARTRIDGE SQ SCH (21:21)
[2022-08-17] MEDS: ALBUTEROL FS 2.5 MG/0.5 ML VIAL.NEB NEB SCH ×4 (00:36→19:33)
[2022-08-17] MEDS: BLOOD SUGAR DIAGNOSTIC 1 EACH STRIP IN SCH ×4 (00:43→18:24)
[2022-08-17] MEDS: INSULIN REGULAR, HUMAN 100 UNIT/ML 3 ML VIAL SQ PRN ×4 (00:45→18:25)
[2022-08-17] MEDS: VANCOMYCIN HCL 0.75 GM in IV D5W 250 ML IV SCH ×2 (02:00→14:00)
[2022-08-17] MEDS: GLUCERNA 1.2 1,000 ML BOTTLE GT SCH (05:14)
[2022-08-17] MEDS: LEVOTHYROXINE SODIUM 75 MCG TABLET PO SCH (05:15)
[2022-08-17] MEDS: MEROPENEM 500 MG in IV NS 0.9% 50 ML IV SCH ×3 (06:00→18:00)
[2022-08-17 07:19] VITALS: BP 159/73
[2022-08-17 07:55] LABS: CALCIUM, SERUM 8.8 mg/dL (8.5-10.1); CARBON DIOXIDE 35 mmol/L (21-32); CHLORIDE 92 mmol/L (98-107); CREATININE 0.6 mg/dL (0.6-1.3); GLUCOSE 118 mg/dL (74-106); POTASSIUM 3.1 mmol/L (3.5-5.1); SODIUM SERUM 132 mmol/L (136-145); UREA NITROGEN, BLOOD 32 mg/dL (7-18)
[2022-08-17] MEDS: RIVAROXABAN 10 MG TABLET PO SCH (09:00)
[2022-08-17] MEDS: PANTOPRAZOLE 40 MG/PACK PACK GT SCH ×2 (09:00→21:46)
[2022-08-17] MEDS: PROSOURCE / PROSTAT (PYXIS) 30 ML UDC GT SCH ×2 (09:00→17:24)
[2022-08-17] MEDS: CARVEDILOL 6.25 MG TABLET GT SCH ×2 (09:00→21:46)
[2022-08-17] MEDS: AMANTADINE SUSP 50 MG/5 ML UDC GT SCH (09:00)
[2022-08-17] MEDS: MULTIVITAMINS,THERAGRAN 1 UDTAB TABLET GT SCH (09:00)
[2022-08-17] MEDS: ASCORBIC ACID 500 MG TABLET GT SCH (09:00)
[2022-08-17] MEDS: SILVER SULFADIAZINE CREAM 25 GM TUBE TP SCH (09:00)
[2022-08-17] MEDS: MODAFINIL 100 MG TABLET GT SCH (09:00)
[2022-08-17] MEDS: ACETAMINOPHEN 650 MG/20 ML UDC- SA PATIENTS-PAIN ONLY GT SCH (09:00)
[2022-08-17] MEDS: ZINC SULFATE 220 MG CAPSULE GT SCH (09:00)
[2022-08-17] MEDS: Z GUARD REMEDY 2 OZ OINT TP SCH ×5 (09:00→21:50)
[2022-08-17] MEDS: VITAMINS A AND D 56.7 GM TUBE TP SCH ×4 (09:00→21:50)
[2022-08-17] MEDS: CLOTRIMAZOLE 1% 15 GM TUBE TP SCH ×2 (09:00→21:49)
[2022-08-17] MEDS: ACIDOPHILUS/BULGARICUS 1 EACH TAB.CHEW GT SCH ×2 (09:00→21:46)
[2022-08-17] MEDS: METOCLOPRAMIDE HCL 10 MG/10 ML UDC GT SCH ×2 (09:00→21:46)
[2022-08-17] MEDS: BUMETANIDE (1 MG) 1 MG TABLET GT SCH (09:00)
[2022-08-17] MEDS: DAKINS QUARTER STRENGTH (0.125%) 480 ML BOTTLE TOP SCH ×3 (09:00→21:49)
[2022-08-17] MEDS: METOLAZONE 2.5 MG TABLET GT SCH (09:00)
[2022-08-17] MEDS: LACOSAMIDE ORAL SOLN 50 MG/5 ML UDC GT SCH ×2 (09:00→21:48)
--- NOTE | 2022-08-17 10:45 | NUR ---
Called pt's daughter to offer the bivalent Covid booster, left message.
--- NOTE | 2022-08-17 11:03 | NUR ---
Received order to give Potassium Chloride 40 mEq via GT x 1 for K 3.1.
[2022-08-17] MEDS ORDERED: POTASSIUM CHLORIDE 20 MEQ POWDER PACKET GT SCH (12:00)
[2022-08-17] MEDS ORDERED: POTASSIUM CHLORIDE 20 MEQ POWDER PACKET GT ONE ×2 (12:00→15:30)
--- NOTE | 2022-08-17 12:01 | NUR ---
Pneumococcal vaccine: SW called [facility] [[address] [place] [address] ] Sub-acute and was notified by CRN that the pt. was administered the pneumococcal vaccine on 06/15/2022 and that flu vaccine was offered on 08/06/2022 but was refused by responsible democrat. Per facility they received the pt. at the beginning on May 2022 from [facility].
[2022-08-17 12:18] VITALS: BP 130/70
[2022-08-17] MEDS: HYDROGEN PEROXIDE 480 ML BOTTLE TP SCH ×2 (12:46→20:49)
--- NOTE | 2022-08-17 16:51 | NUR ---
Venelex cream now available from the pharmacy. Notified CLINICAL PHARMACIST Megha Shirley. She ordered to change Silvadene cream to Venelex cream for the sacral wound.
[2022-08-17] MEDS ORDERED: Z GUARD REMEDY 2 OZ OINT TP PRN (17:30)
[2022-08-17] MEDS ORDERED: DAKINS QUARTER STRENGTH (0.125%) 480 ML BOTTLE TOP PRN (17:30)
[2022-08-17] MEDS ORDERED: [UNRECOGNIZED DRUG - OTHER] TP PRN (17:30)
--- NOTE | 2022-08-17 18:41 | NUR ---
Called pt's daughter Gloria again to offer the flu vaccine and bivalent Covid booster. She said to let pt complete her antibiotics first before giving any vaccines. She is undecided on the bivalent Covid booster, but she said that if pt will receive the flu vaccine and bivalent Covid booster, she would like the pt to receive the flu vaccine first. Also informed her of pt's unstageable sacral wound and explained the nature of an unstageable wound to her. Informed her that Venelex cream will be applied to the wound.
[2022-08-17 19:04] VITALS: BP 113/59
[2022-08-17] MEDS: [UNRECOGNIZED DRUG - OTHER] TP SCH (21:49)
[2022-08-17] MEDS: ATORVASTATIN 40 MG TABLET GT SCH (21:50)
[2022-08-17] MEDS: INSULIN GLARGINE, 100 UNIT/ML CARTRIDGE SQ SCH (22:48)
[2022-08-18] MEDS: MEROPENEM 500 MG in IV NS 0.9% 50 ML IV SCH ×4 (00:39→17:18)
[2022-08-18] MEDS: BLOOD SUGAR DIAGNOSTIC 1 EACH STRIP IN SCH ×4 (00:43→17:19)
[2022-08-18] MEDS: INSULIN REGULAR, HUMAN 100 UNIT/ML 3 ML VIAL SQ PRN ×4 (00:44→17:41)
[2022-08-18 01:50] VITALS: BP 98/61
[2022-08-18] MEDS: VANCOMYCIN HCL 0.75 GM in IV D5W 250 ML IV SCH (02:00)
[2022-08-18] MEDS: ALBUTEROL FS 2.5 MG/0.5 ML VIAL.NEB NEB SCH ×4 (02:19→20:03)
[2022-08-18] MEDS: LEVOTHYROXINE SODIUM 75 MCG TABLET PO SCH (05:48)
[2022-08-18] MEDS: GLUCERNA 1.2 1,000 ML BOTTLE GT SCH (05:50)
--- NOTE | 2022-08-18 06:17 | NUR ---
PATIENT RECEIVED ON TRACH TO VENT WITH SETTINGS OF AC 12, 400 Vt, 25%, +5. SUCTIONED FOR MINIMAL, THIN, YELLOW SECRETIONS. GIVEN IN-LINE TREATMENTS WITH NO ADVERSE REACTIONS. AMBU BAG AT BEDSIDE. VENT AND PULSE OXIMETER ALARMS AUDIBLE AND VISIBLE. TRACH CARE DONE. VENT PLUGGED INTO RED OUTLET. Addendum: 08/18/22 at 0618 by CHAVA MCKEON RT Amended: Links added.
[2022-08-18 07:42] VITALS: BP 136/64
[2022-08-18 08:10] LABS: CALCIUM, SERUM 8.6 mg/dL (8.5-10.1); CREATININE 0.6 mg/dL (0.6-1.3); MAGNESIUM 1.5 mg/dL (1.8-2.4); POTASSIUM 3.6 mmol/L (3.5-5.1)
[2022-08-18] MEDS: HYDROGEN PEROXIDE 480 ML BOTTLE TP SCH ×2 (09:00→21:48)
[2022-08-18] MEDS: ACIDOPHILUS/BULGARICUS 1 EACH TAB.CHEW GT SCH ×2 (09:00→21:46)
[2022-08-18] MEDS: [UNRECOGNIZED DRUG - OTHER] TP SCH ×2 (09:00→21:47)
[2022-08-18] MEDS: LACOSAMIDE ORAL SOLN 50 MG/5 ML UDC GT SCH ×2 (09:00→21:46)
[2022-08-18] MEDS: ACETAMINOPHEN 650 MG/20 ML UDC- SA PATIENTS-PAIN ONLY GT SCH (09:00)
[2022-08-18] MEDS: PANTOPRAZOLE 40 MG/PACK PACK GT SCH ×2 (09:00→21:46)
[2022-08-18] MEDS: PROSOURCE / PROSTAT (PYXIS) 30 ML UDC GT SCH ×2 (09:00→16:03)
[2022-08-18] MEDS: CARVEDILOL 6.25 MG TABLET GT SCH ×2 (09:00→21:46)
[2022-08-18] MEDS: VITAMINS A AND D 56.7 GM TUBE TP SCH ×4 (09:00→21:52)
[2022-08-18] MEDS: DAKINS QUARTER STRENGTH (0.125%) 480 ML BOTTLE TOP SCH ×3 (09:00→21:47)
[2022-08-18] MEDS: METOCLOPRAMIDE HCL 10 MG/10 ML UDC GT SCH ×2 (09:00→21:46)
[2022-08-18] MEDS: CLOTRIMAZOLE 1% 15 GM TUBE TP SCH ×2 (09:00→21:47)
[2022-08-18] MEDS: POTASSIUM CHLORIDE 20 MEQ POWDER PACKET GT SCH ×2 (09:00→16:03)
[2022-08-18] MEDS: BUMETANIDE (1 MG) 1 MG TABLET GT SCH (09:00)
[2022-08-18] MEDS: ASCORBIC ACID 500 MG TABLET GT SCH (09:00)
[2022-08-18] MEDS: MULTIVITAMINS,THERAGRAN 1 UDTAB TABLET GT SCH (09:00)
[2022-08-18] MEDS: MODAFINIL 100 MG TABLET GT SCH (09:00)
[2022-08-18] MEDS: AMANTADINE SUSP 50 MG/5 ML UDC GT SCH (09:00)
[2022-08-18] MEDS: RIVAROXABAN 10 MG TABLET PO SCH (09:00)
[2022-08-18] MEDS: METOLAZONE 2.5 MG TABLET GT SCH (09:00)
[2022-08-18] MEDS: ZINC SULFATE 220 MG CAPSULE GT SCH (09:00)
[2022-08-18] MEDS: Z GUARD REMEDY 2 OZ OINT TP SCH ×5 (09:00→21:48)
[2022-08-18] MEDS: Magnesium 1GM/D5W 100ML PREMIX 100 ML IV SCH ×2 (11:46→12:20)
[2022-08-18 11:55] VITALS: BP 152/67
--- NOTE | 2022-08-18 18:30 | NUR ---
Clarified sacral decubitus site from JAMA Grimm to state sacrococcyx, decubitus covering the area of sacral and coccyx. She asked if patient is on any blood thinner, patient on Xarelto 20 mg. daily. Treatment order clarified.
--- NOTE | 2022-08-18 18:40 | NUR ---
Seen and examined by Dr. Moreno reviewed current medication orders and labs, specifically BUN, Creat and K+ level. Dr. Moreno said to continue with KCL 40 meq via GT BID x 3 days as previously ordered but DC routine KCL 40 meq via GT daily starting 08/21/22. He ordered BMP on Tuesday. Orders carried out.
[2022-08-18 19:01] VITALS: BP 126/61
[2022-08-18] MEDS ORDERED: Z GUARD REMEDY 2 OZ OINT TP PRN (20:00)
[2022-08-18] MEDS ORDERED: DAKINS QUARTER STRENGTH (0.125%) 480 ML BOTTLE TOP PRN (20:00)
[2022-08-18] MEDS: INSULIN GLARGINE, 100 UNIT/ML CARTRIDGE SQ SCH (21:50)
[2022-08-18] MEDS: ATORVASTATIN 40 MG TABLET GT SCH (21:50)
[2022-08-19] MEDS: BLOOD SUGAR DIAGNOSTIC 1 EACH STRIP IN SCH ×5 (00:06→23:24)
[2022-08-19] MEDS: INSULIN REGULAR, HUMAN 100 UNIT/ML 3 ML VIAL SQ PRN ×5 (00:08→23:24)
[2022-08-19] MEDS: ALBUTEROL FS 2.5 MG/0.5 ML VIAL.NEB NEB SCH ×4 (01:28→19:57)
[2022-08-19 01:51] VITALS: BP 105/57
[2022-08-19] MEDS: LEVOTHYROXINE SODIUM 75 MCG TABLET PO SCH (05:55)
[2022-08-19 06:00] VITALS: BP 114/52
[2022-08-19 07:16] VITALS: BP 117/78
[2022-08-19 07:58] LABS: CALCIUM, SERUM 8.8 mg/dL (8.5-10.1); CREATININE 0.7 mg/dL (0.6-1.3); POTASSIUM 3.5 mmol/L (3.5-5.1)
[2022-08-19] MEDS: METOCLOPRAMIDE HCL 10 MG/10 ML UDC GT SCH ×2 (08:28→21:04)
[2022-08-19] MEDS: MODAFINIL 100 MG TABLET GT SCH (08:28)
[2022-08-19] MEDS: BUMETANIDE (1 MG) 1 MG TABLET GT SCH (08:28)
[2022-08-19] MEDS: CARVEDILOL 6.25 MG TABLET GT SCH ×2 (08:29→21:04)
[2022-08-19] MEDS: METOLAZONE 2.5 MG TABLET GT SCH (08:29)
[2022-08-19] MEDS: MULTIVITAMINS,THERAGRAN 1 UDTAB TABLET GT SCH (08:29)
[2022-08-19] MEDS: ACETAMINOPHEN 650 MG/20 ML UDC- SA PATIENTS-PAIN ONLY GT SCH (08:29)
[2022-08-19] MEDS: ASCORBIC ACID 500 MG TABLET GT SCH (08:29)
[2022-08-19] MEDS: PROSOURCE / PROSTAT (PYXIS) 30 ML UDC GT SCH ×2 (08:30→17:02)
[2022-08-19] MEDS: AMANTADINE SUSP 50 MG/5 ML UDC GT SCH (08:30)
[2022-08-19] MEDS: POTASSIUM CHLORIDE 20 MEQ POWDER PACKET GT SCH ×2 (08:34→17:03)
[2022-08-19] MEDS: LACOSAMIDE ORAL SOLN 50 MG/5 ML UDC GT SCH ×2 (08:34→21:00)
[2022-08-19] MEDS: PANTOPRAZOLE 40 MG/PACK PACK GT SCH ×2 (08:34→21:04)
[2022-08-19] MEDS: ZINC SULFATE 220 MG CAPSULE GT SCH (08:37)
[2022-08-19] MEDS: RIVAROXABAN 10 MG TABLET PO SCH (08:37)
[2022-08-19] MEDS: CLOTRIMAZOLE 1% 15 GM TUBE TP SCH ×2 (08:39→21:05)
[2022-08-19] MEDS: DAKINS QUARTER STRENGTH (0.125%) 480 ML BOTTLE TOP SCH ×2 (08:39→21:05)
[2022-08-19] MEDS: VITAMINS A AND D 56.7 GM TUBE TP SCH ×4 (08:39→21:05)
[2022-08-19] MEDS: [UNRECOGNIZED DRUG - OTHER] TP SCH ×2 (08:39→21:05)
[2022-08-19] MEDS: HYDROGEN PEROXIDE 480 ML BOTTLE TP SCH ×2 (08:39→19:57)
[2022-08-19] MEDS: Z GUARD REMEDY 2 OZ OINT TP SCH ×4 (08:39→21:05)
[2022-08-19] MEDS: ACIDOPHILUS/BULGARICUS 1 EACH TAB.CHEW GT SCH ×2 (08:58→21:04)
[2022-08-19] MEDS ORDERED: TUBERCULIN,PURIF.PROT.DERIV. 5 TU/0.1 ML VIAL ID ONE (09:00)
--- NOTE | 2022-08-19 10:23 | NUR ---
Optometry apt.: SUNDAY schedule pt. for optometry exam with Dr. Rogers' s office [phone] on 09/10/2022 8:30 am. SUNDAY left the pt.'s Daughter: Gloria Larson [phone] a voicemail notifying her of apt. SUNDAY notified Laya BLOCK.
[2022-08-19 11:57] VITALS: BP 125/75
--- NOTE | 2022-08-19 12:00 | NUR ---
Midline catheter was found partially out. Received order to DC midline catheter. Midline catheter was DC'd. Pt tolerated procedure well, no bleeding noted, catheter tip intact.
--- NOTE | 2022-08-19 12:11 | NUR ---
Optometry apt. update: SUNDAY received call from Juany at Dr. Rogers's office [phone] Rogers completed the optometry exam for this pt. on 07/07/2022 while pt. was residing at [facility]. Noted. SUNDAY received the optometry consultation note via fax and placed it in the pt.'s chart.
[2022-08-19] MEDS: GLUCERNA 1.2 1,000 ML BOTTLE GT SCH (15:52)
--- NOTE | 2022-08-19 17:27 | NUR ---
Placed pt's pacemaker monitor at her bedside, plugged it into the red outlet.
--- NOTE | 2022-08-19 17:57 | NUR ---
JAMA Shirley said she will do serial sacrococcyx debridement starting tomorrow. Called pt's daughter Gloria but she did not answer.
[2022-08-19] MEDS ORDERED: SILVER NITRATE APPLICATOR 1 EA BOX TP ONE (18:41)
[2022-08-19 19:35] VITALS: BP 137/68
[2022-08-19] MEDS: INSULIN GLARGINE, 100 UNIT/ML CARTRIDGE SQ SCH (21:06)
[2022-08-19] MEDS: ATORVASTATIN 40 MG TABLET GT SCH (21:06)
[2022-08-20 01:21] VITALS: BP 121/61
[2022-08-20] MEDS: ALBUTEROL FS 2.5 MG/0.5 ML VIAL.NEB NEB SCH ×4 (01:48→18:46)
[2022-08-20 05:08] VITALS: BP 127/58
[2022-08-20] MEDS: LEVOTHYROXINE SODIUM 75 MCG TABLET PO SCH (05:09)
[2022-08-20] MEDS: BLOOD SUGAR DIAGNOSTIC 1 EACH STRIP IN SCH ×4 (05:33→23:40)
[2022-08-20] MEDS: INSULIN REGULAR, HUMAN 100 UNIT/ML 3 ML VIAL SQ PRN ×2 (05:34→23:40)
[2022-08-20 07:03] VITALS: BP 110/59
[2022-08-20] MEDS: BUMETANIDE (1 MG) 1 MG TABLET GT SCH (09:00)
[2022-08-20] MEDS: METOCLOPRAMIDE HCL 10 MG/10 ML UDC GT SCH ×2 (09:00→20:44)
[2022-08-20] MEDS: ASCORBIC ACID 500 MG TABLET GT SCH (09:00)
[2022-08-20] MEDS: ACIDOPHILUS/BULGARICUS 1 EACH TAB.CHEW GT SCH ×2 (09:00→20:44)
[2022-08-20] MEDS: CLOTRIMAZOLE 1% 15 GM TUBE TP SCH ×2 (09:00→20:45)
[2022-08-20] MEDS: AMANTADINE SUSP 50 MG/5 ML UDC GT SCH (09:00)
[2022-08-20] MEDS: RIVAROXABAN 10 MG TABLET PO SCH (09:00)
[2022-08-20] MEDS: CARVEDILOL 6.25 MG TABLET GT SCH ×2 (09:00→20:44)
[2022-08-20] MEDS: PANTOPRAZOLE 40 MG/PACK PACK GT SCH ×2 (09:00→20:44)
[2022-08-20] MEDS: DAKINS QUARTER STRENGTH (0.125%) 480 ML BOTTLE TOP SCH ×2 (09:00→20:45)
[2022-08-20] MEDS: [UNRECOGNIZED DRUG - OTHER] TP SCH ×2 (09:00→20:45)
[2022-08-20] MEDS: ACETAMINOPHEN 650 MG/20 ML UDC- SA PATIENTS-PAIN ONLY GT SCH (09:00)
[2022-08-20] MEDS: METOLAZONE 2.5 MG TABLET GT SCH (09:00)
[2022-08-20] MEDS: POTASSIUM CHLORIDE 20 MEQ POWDER PACKET GT SCH ×2 (09:00→17:23)
[2022-08-20] MEDS: MODAFINIL 100 MG TABLET GT SCH (09:00)
[2022-08-20] MEDS: VITAMINS A AND D 56.7 GM TUBE TP SCH ×4 (09:00→20:45)
[2022-08-20] MEDS: LACOSAMIDE ORAL SOLN 50 MG/5 ML UDC GT SCH ×2 (09:00→20:44)
[2022-08-20] MEDS: ZINC SULFATE 220 MG CAPSULE GT SCH (09:00)
[2022-08-20] MEDS: MULTIVITAMINS,THERAGRAN 1 UDTAB TABLET GT SCH (09:00)
[2022-08-20] MEDS: PROSOURCE / PROSTAT (PYXIS) 30 ML UDC GT SCH ×2 (09:00→17:23)
[2022-08-20] MEDS: Z GUARD REMEDY 2 OZ OINT TP SCH ×4 (09:00→20:45)
[2022-08-20] MEDS: HYDROGEN PEROXIDE 480 ML BOTTLE TP SCH ×2 (09:09→20:55)
--- NOTE | 2022-08-20 09:20 | NUR ---
Left a message to Tana to obtain consent for serial debridement of sacrococcyx wound. Awaiting for call back. Meanwhile informed JAMA Grimm that family has not given consent yet, awaiting for call back but supplies at bedside. Appreciated the call.
--- NOTE | 2022-08-20 09:41 | NUR ---
RT NOTE Patient received on ordered vent settings AC12 VT400 25% +5. Airway patent and secured, suction prn. Q6 breathing treatment given and tolerated well without adverse effect. Spare trach and ambu bag at bedside. Vent alarms on and functional, vent plugged into red outlet. No respiratory distress noted at this time, will continue to monitor t/o shift.
--- NOTE | 2022-08-20 10:42 | NUR ---
Left a message to patient's son Shantanu to obtain consent for sacrococcyx debridement. Awaiting for call back.
--- NOTE | 2022-08-20 11:37 | NUR ---
[facility] medical Records: SW called [facility] medical Records and they stated they tried faxing the records requested but it is a total of 550 pages and it failed to send. Per CRN, SUNDAY informed medical records that we need the procedure notes for Biliary drain and a few follow up progress notes. Medical records was agreeable to send this info to SW.
--- NOTE | 2022-08-20 11:52 | NUR ---
Received a call from Shantanu, patient's son and obtain consent for sacrococcyx debridement witnessed by 2 licensed nurses.
[2022-08-20 11:59] VITALS: BP 125/61
[2022-08-20] MEDS ORDERED: MAGNESIUM OXIDE 400 MG TABLET GT ONE (15:00)
--- NOTE | 2022-08-20 16:30 | NUR ---
JAMA Grimm debrided sacrococcyx, removed necrotic tissue, patient tolerated procedure, no facing grimacing noted while procedure being done. Patient medicated with Tylenol prior to procedure. Debrided sacral tissue specimen sent for pathology. Tana also returned call and made aware that consent for sacrococcyx debridement was given by her brother Shantanu. She asked if patient will be given anesthesia, patient will be given local anesthesia only if needed. Patient's sister and niece visited this morning.
[2022-08-20] MEDS: GLUCERNA 1.2 1,000 ML BOTTLE GT SCH (17:28)
[2022-08-20 19:07] VITALS: BP 125/59
[2022-08-20] MEDS: ATORVASTATIN 40 MG TABLET GT SCH (21:28)
[2022-08-20] MEDS: INSULIN GLARGINE, 100 UNIT/ML CARTRIDGE SQ SCH (21:28)
[2022-08-21 00:04] VITALS: BP 92/45
[2022-08-21] MEDS: ALBUTEROL FS 2.5 MG/0.5 ML VIAL.NEB NEB SCH ×4 (00:48→18:50)
[2022-08-21 05:36] VITALS: BP 109/56
[2022-08-21] MEDS: LEVOTHYROXINE SODIUM 75 MCG TABLET PO SCH (05:37)
[2022-08-21] MEDS: BLOOD SUGAR DIAGNOSTIC 1 EACH STRIP IN SCH ×3 (05:37→17:10)
[2022-08-21] MEDS: INSULIN REGULAR, HUMAN 100 UNIT/ML 3 ML VIAL SQ PRN ×3 (05:38→17:11)
[2022-08-21 07:17] VITALS: BP 132/75
[2022-08-21] MEDS: HYDROGEN PEROXIDE 480 ML BOTTLE TP SCH ×2 (07:38→20:22)
[2022-08-21] MEDS: VITAMINS A AND D 56.7 GM TUBE TP SCH ×4 (09:00→21:31)
[2022-08-21] MEDS: CLOTRIMAZOLE 1% 15 GM TUBE TP SCH ×2 (09:00→21:31)
[2022-08-21] MEDS: ZINC SULFATE 220 MG CAPSULE GT SCH (09:00)
[2022-08-21] MEDS: ACIDOPHILUS/BULGARICUS 1 EACH TAB.CHEW GT SCH ×2 (09:00→20:09)
[2022-08-21] MEDS: PANTOPRAZOLE 40 MG/PACK PACK GT SCH ×2 (09:00→20:09)
[2022-08-21] MEDS: METOLAZONE 2.5 MG TABLET GT SCH (09:00)
[2022-08-21] MEDS: LACOSAMIDE ORAL SOLN 50 MG/5 ML UDC GT SCH ×2 (09:00→20:09)
[2022-08-21] MEDS: MULTIVITAMINS,THERAGRAN 1 UDTAB TABLET GT SCH (09:00)
[2022-08-21] MEDS ORDERED: POTASSIUM CHLORIDE 20 MEQ POWDER PACKET GT SCH (09:00)
[2022-08-21] MEDS: PROSOURCE / PROSTAT (PYXIS) 30 ML UDC GT SCH ×2 (09:00→16:21)
[2022-08-21] MEDS: METOCLOPRAMIDE HCL 10 MG/10 ML UDC GT SCH ×2 (09:00→20:09)
[2022-08-21] MEDS: RIVAROXABAN 10 MG TABLET PO SCH (09:00)
[2022-08-21] MEDS: ASCORBIC ACID 500 MG TABLET GT SCH (09:00)
[2022-08-21] MEDS: AMANTADINE SUSP 50 MG/5 ML UDC GT SCH (09:00)
[2022-08-21] MEDS: CARVEDILOL 6.25 MG TABLET GT SCH ×2 (09:00→20:09)
[2022-08-21] MEDS: [UNRECOGNIZED DRUG - OTHER] TP SCH ×2 (09:00→21:31)
[2022-08-21] MEDS: Z GUARD REMEDY 2 OZ OINT TP SCH ×4 (09:00→21:31)
[2022-08-21] MEDS: ACETAMINOPHEN 650 MG/20 ML UDC- SA PATIENTS-PAIN ONLY GT SCH (09:00)
[2022-08-21] MEDS: MODAFINIL 100 MG TABLET GT SCH (09:00)
[2022-08-21] MEDS: DAKINS QUARTER STRENGTH (0.125%) 480 ML BOTTLE TOP SCH ×2 (09:00→21:31)
[2022-08-21] MEDS: BUMETANIDE (1 MG) 1 MG TABLET GT SCH (09:00)
[2022-08-21 12:32] VITALS: BP 99/51
[2022-08-21] MEDS: MULTIVIT W/MINERALS 1 TAB TABLET GT SCH (14:23)
[2022-08-21] MEDS: GLUCERNA 1.2 1,000 ML BOTTLE GT SCH (15:00)
[2022-08-21 17:09] VITALS: BP 100/52
[2022-08-21 21:26] VITALS: BP 143/69
[2022-08-21] MEDS: ATORVASTATIN 40 MG TABLET GT SCH (21:31)
[2022-08-21] MEDS: INSULIN GLARGINE, 100 UNIT/ML CARTRIDGE SQ SCH (21:32)
[2022-08-22] MEDS: INSULIN REGULAR, HUMAN 100 UNIT/ML 3 ML VIAL SQ PRN ×3 (00:09→23:57)
[2022-08-22] MEDS: BLOOD SUGAR DIAGNOSTIC 1 EACH STRIP IN SCH ×5 (00:09→23:57)
[2022-08-22] MEDS: ALBUTEROL FS 2.5 MG/0.5 ML VIAL.NEB NEB SCH ×4 (00:48→18:54)
[2022-08-22] MEDS: LEVOTHYROXINE SODIUM 75 MCG TABLET PO SCH (05:44)
[2022-08-22 07:04] VITALS: BP 147/61
[2022-08-22] MEDS: MULTIVIT W/MINERALS 1 TAB TABLET GT SCH (09:00)
[2022-08-22] MEDS: ACETAMINOPHEN 650 MG/20 ML UDC- SA PATIENTS-PAIN ONLY GT SCH (09:00)
[2022-08-22] MEDS: VITAMINS A AND D 56.7 GM TUBE TP SCH ×4 (09:00→20:26)
[2022-08-22] MEDS: DAKINS QUARTER STRENGTH (0.125%) 480 ML BOTTLE TOP SCH ×2 (09:00→20:26)
[2022-08-22] MEDS: METOLAZONE 2.5 MG TABLET GT SCH (09:00)
[2022-08-22] MEDS: Z GUARD REMEDY 2 OZ OINT TP SCH ×4 (09:00→20:26)
[2022-08-22] MEDS: LACOSAMIDE ORAL SOLN 50 MG/5 ML UDC GT SCH ×2 (09:00→20:26)
[2022-08-22] MEDS: ASCORBIC ACID 500 MG TABLET GT SCH (09:00)
[2022-08-22] MEDS: RIVAROXABAN 10 MG TABLET PO SCH (09:00)
[2022-08-22] MEDS: ZINC SULFATE 220 MG CAPSULE GT SCH (09:00)
[2022-08-22] MEDS: CLOTRIMAZOLE 1% 15 GM TUBE TP SCH ×2 (09:00→20:26)
[2022-08-22] MEDS: [UNRECOGNIZED DRUG - OTHER] TP SCH ×2 (09:00→20:26)
[2022-08-22] MEDS: HYDROGEN PEROXIDE 480 ML BOTTLE TP SCH ×2 (09:07→20:13)
[2022-08-22] MEDS: BUMETANIDE (1 MG) 1 MG TABLET GT SCH (09:58)
[2022-08-22] MEDS: ACIDOPHILUS/BULGARICUS 1 EACH TAB.CHEW GT SCH ×2 (09:59→20:26)
[2022-08-22] MEDS: PROSOURCE / PROSTAT (PYXIS) 30 ML UDC GT SCH ×2 (09:59→17:08)
[2022-08-22] MEDS: PANTOPRAZOLE 40 MG/PACK PACK GT SCH ×2 (09:59→20:26)
[2022-08-22] MEDS: CARVEDILOL 6.25 MG TABLET GT SCH ×2 (09:59→20:26)
[2022-08-22] MEDS: AMANTADINE SUSP 50 MG/5 ML UDC GT SCH (09:59)
[2022-08-22] MEDS: MODAFINIL 100 MG TABLET GT SCH (09:59)
[2022-08-22] MEDS: METOCLOPRAMIDE HCL 10 MG/10 ML UDC GT SCH ×2 (09:59→20:26)
[2022-08-22] MEDS: GLUCERNA 1.2 1,000 ML BOTTLE GT SCH (17:05)
[2022-08-22 19:59] VITALS: BP 137/54
[2022-08-22] MEDS: ATORVASTATIN 40 MG TABLET GT SCH (21:21)
[2022-08-22] MEDS: INSULIN GLARGINE, 100 UNIT/ML CARTRIDGE SQ SCH (21:23)
[2022-08-23] MEDS: ALBUTEROL FS 2.5 MG/0.5 ML VIAL.NEB NEB SCH ×4 (00:35→19:55)
[2022-08-23] MEDS: BLOOD SUGAR DIAGNOSTIC 1 EACH STRIP IN SCH ×3 (05:22→17:53)
[2022-08-23] MEDS: LEVOTHYROXINE SODIUM 75 MCG TABLET PO SCH (05:24)
[2022-08-23] MEDS: INSULIN REGULAR, HUMAN 100 UNIT/ML 3 ML VIAL SQ PRN ×3 (05:24→17:53)
[2022-08-23 07:03] VITALS: BP 99/77
[2022-08-23 07:05] VITALS: BP 139/54
[2022-08-23] MEDS: HYDROGEN PEROXIDE 480 ML BOTTLE TP SCH ×2 (08:02→23:45)
[2022-08-23] MEDS: BUMETANIDE (1 MG) 1 MG TABLET GT SCH (08:35)
[2022-08-23] MEDS: CARVEDILOL 6.25 MG TABLET GT SCH ×2 (08:37→20:18)
[2022-08-23] MEDS: ACIDOPHILUS/BULGARICUS 1 EACH TAB.CHEW GT SCH ×2 (08:38→20:18)
[2022-08-23] MEDS: MODAFINIL 100 MG TABLET GT SCH (08:38)
[2022-08-23] MEDS: PROSOURCE / PROSTAT (PYXIS) 30 ML UDC GT SCH ×2 (08:38→17:27)
[2022-08-23] MEDS: PANTOPRAZOLE 40 MG/PACK PACK GT SCH ×2 (08:38→20:19)
[2022-08-23] MEDS: METOCLOPRAMIDE HCL 10 MG/10 ML UDC GT SCH ×2 (08:39→20:19)
[2022-08-23] MEDS: MULTIVIT W/MINERALS 1 TAB TABLET GT SCH (08:39)
[2022-08-23] MEDS: LACOSAMIDE ORAL SOLN 50 MG/5 ML UDC GT SCH ×2 (08:40→20:20)
[2022-08-23] MEDS: ACETAMINOPHEN 650 MG/20 ML UDC- SA PATIENTS-PAIN ONLY GT SCH (08:40)
[2022-08-23] MEDS: ASCORBIC ACID 500 MG TABLET GT SCH (08:40)
[2022-08-23] MEDS: METOLAZONE 2.5 MG TABLET GT SCH (08:42)
[2022-08-23] MEDS: ZINC SULFATE 220 MG CAPSULE GT SCH (08:43)
[2022-08-23] MEDS: RIVAROXABAN 10 MG TABLET PO SCH (08:44)
[2022-08-23] MEDS: AMANTADINE SUSP 50 MG/5 ML UDC GT SCH (08:49)
[2022-08-23 08:50] LABS: CALCIUM, SERUM 8.8 mg/dL (8.5-10.1); CREATININE 0.6 mg/dL (0.6-1.3); MAGNESIUM 1.8 mg/dL (1.8-2.4)
[2022-08-23 08:51] LABS: POTASSIUM 2.7 mmol/L (3.5-5.1)
--- NOTE | 2022-08-23 09:05 | NUR ---
Relayed K 2.7 to JAMA Fuchs. She ordered to give Potassium Chloride 40 mEq via GT x 3 today then Potassium Chloride 40 mEq via GT daily starting tomorrow. She also ordered to check K daily.
[2022-08-23] MEDS: VITAMINS A AND D 56.7 GM TUBE TP SCH ×4 (09:10→20:21)
[2022-08-23] MEDS: DAKINS QUARTER STRENGTH (0.125%) 480 ML BOTTLE TOP SCH ×2 (09:10→20:20)
[2022-08-23] MEDS: CLOTRIMAZOLE 1% 15 GM TUBE TP SCH ×2 (09:10→20:20)
[2022-08-23] MEDS: [UNRECOGNIZED DRUG - OTHER] TP SCH ×2 (09:10→20:21)
[2022-08-23] MEDS: Z GUARD REMEDY 2 OZ OINT TP SCH ×4 (09:10→20:21)
[2022-08-23] MEDS: POTASSIUM CHLORIDE 20 MEQ POWDER PACKET GT SCH ×3 (10:22→14:21)
--- NOTE | 2022-08-23 12:07 | NUR ---
Followed-up with JAMA Shirley if prescription for Santyl cream has been sent to [facility] on [address]. JAMA Cleveland said her office already sent the prescription. Called [facility] and was told that they still need to order it. Santyl will be available tomorrow. [facility] staff unable to give a gilliam for Santyl at this time.
[2022-08-23 12:11] VITALS: BP 122/59
--- NOTE | 2022-08-23 15:30 | NUR ---
Called pt's daughter Tana to offer the flu vaccine. Left message for her.
--- NOTE | 2022-08-23 16:31 | NUR ---
Pt's daughter Tana called back. Notified her that pt has now completed her antibiotics. Asked her if she would like the pt to receive the flu vaccine as previously discussed. Vaccine information statement dated 05/29/21 has been provided to her. Discussed benefits with her such as preventing influenza and preventing risks of flu complications. Also discussed risks of vaccine reactions with her such as soreness, redness and swelling at injection site; fever; muscle aches; headache; and a very small risk of Guillain-Ellis Syndrome. Tana gave consent to administer the flu vaccine. Also offered the Covid bivalent booster. She said she is still thinking about it and will discuss it with her brother. Educated her regarding risks, benefits, and possible side effects.
--- NOTE | 2022-08-23 16:52 | NUR ---
Family Invite to IDT: SW called and left voicemail to the patient's daughter, Gloria [phone] inviting her to participate in 08/27/22 12:30p IDT meeting via phone conference. SW will follow up accordingly.
[2022-08-23 17:00] VITALS: BP 123/58
[2022-08-23] MEDS: GLUCERNA 1.2 1,000 ML BOTTLE GT SCH (17:33)
--- NOTE | 2022-08-23 18:27 | NUR ---
Small open skin noted on left side of the neck, appears like an open blister. Received order to apply triple antibiotic ointment and Mepilex dressing q shift for 14 days.
[2022-08-23 19:47] VITALS: BP 156/74
[2022-08-23] MEDS: NEOMY SULF/BACITRAC ZN/POLY 15 GM TUBE TP SCH (20:20)
[2022-08-23] MEDS: ATORVASTATIN 40 MG TABLET GT SCH (21:14)
[2022-08-23] MEDS: INSULIN GLARGINE, 100 UNIT/ML CARTRIDGE SQ SCH (21:15)
[2022-08-24] MEDS: BLOOD SUGAR DIAGNOSTIC 1 EACH STRIP IN SCH ×5 (00:29→23:32)
[2022-08-24] MEDS: INSULIN REGULAR, HUMAN 100 UNIT/ML 3 ML VIAL SQ PRN ×5 (00:29→23:34)
[2022-08-24] MEDS: ALBUTEROL FS 2.5 MG/0.5 ML VIAL.NEB NEB SCH ×4 (01:41→19:44)
[2022-08-24] MEDS: LEVOTHYROXINE SODIUM 75 MCG TABLET PO SCH (05:24)
[2022-08-24 07:16] VITALS: BP 131/67
[2022-08-24] MEDS: HYDROGEN PEROXIDE 480 ML BOTTLE TP SCH ×2 (08:22→19:44)
[2022-08-24] MEDS: PANTOPRAZOLE 40 MG/PACK PACK GT SCH ×2 (08:42→21:02)
[2022-08-24] MEDS: CARVEDILOL 6.25 MG TABLET GT SCH ×2 (08:42→21:02)
[2022-08-24] MEDS: MODAFINIL 100 MG TABLET GT SCH (08:42)
[2022-08-24] MEDS: ASCORBIC ACID 500 MG TABLET GT SCH (08:42)
[2022-08-24] MEDS: ACETAMINOPHEN 650 MG/20 ML UDC- SA PATIENTS-PAIN ONLY GT SCH (08:42)
[2022-08-24] MEDS: ACIDOPHILUS/BULGARICUS 1 EACH TAB.CHEW GT SCH ×2 (08:42→21:02)
[2022-08-24] MEDS: POTASSIUM CHLORIDE 20 MEQ POWDER PACKET GT SCH (08:42)
[2022-08-24] MEDS: MULTIVIT W/MINERALS 1 TAB TABLET GT SCH (08:42)
[2022-08-24] MEDS: AMANTADINE SUSP 50 MG/5 ML UDC GT SCH (08:42)
[2022-08-24] MEDS: METOCLOPRAMIDE HCL 10 MG/10 ML UDC GT SCH ×2 (08:42→21:03)
[2022-08-24] MEDS: PROSOURCE / PROSTAT (PYXIS) 30 ML UDC GT SCH ×2 (08:42→16:35)
[2022-08-24] MEDS: BUMETANIDE (1 MG) 1 MG TABLET GT SCH (08:42)
[2022-08-24] MEDS: ZINC SULFATE 220 MG CAPSULE GT SCH (08:43)
[2022-08-24] MEDS: RIVAROXABAN 10 MG TABLET PO SCH (08:43)
[2022-08-24] MEDS: METOLAZONE 2.5 MG TABLET GT SCH (08:43)
[2022-08-24] MEDS: VITAMINS A AND D 56.7 GM TUBE TP SCH ×4 (08:43→21:05)
[2022-08-24] MEDS: DAKINS QUARTER STRENGTH (0.125%) 480 ML BOTTLE TOP SCH ×2 (10:00→21:05)
[2022-08-24] MEDS: Z GUARD REMEDY 2 OZ OINT TP SCH ×4 (10:00→21:05)
[2022-08-24] MEDS: NEOMY SULF/BACITRAC ZN/POLY 15 GM TUBE TP SCH ×2 (10:00→21:05)
[2022-08-24] MEDS: [UNRECOGNIZED DRUG - OTHER] TP SCH ×2 (10:00→21:05)
[2022-08-24] MEDS: CLOTRIMAZOLE 1% 15 GM TUBE TP SCH ×2 (10:00→21:05)
--- NOTE | 2022-08-24 11:00 | NUR ---
Seen by Dr Moreno. Notified him that K 2.7 yesterday and WAFER FABRICATION TECHNICIAN Lynn Fuchs ordered to give KCl 40 mEq daily. Also notified him of 4 lb weight gain. No new order at this time.
[2022-08-24] MEDS: LACOSAMIDE ORAL SOLN 50 MG/5 ML UDC GT SCH ×2 (11:19→21:04)
[2022-08-24 12:15] VITALS: BP 137/75
--- NOTE | 2022-08-24 18:08 | NUR ---
RECEIVED PATIENT ON MD ORDERED VENT SETTINGS. HAS A TRACH PORTEX 7 CUFFED. AIRWAY PATENT AND SECURE. INLINE HHN TXS QUAN WELL WITH NO ADVERSE REACTION NOTED. AMBU BAG AND EMERGENCY TRACH AT THE BEDSIDE. VENT PLUGGED INTO RED OUTLET. ALARMS SET AND AUDIBLE. SMALL THICK YELLOW SECRETIONS NOTED.
[2022-08-24] MEDS ORDERED: INFLUENZA VACCINE 2022-23 0.5 ML DISP.SYRIN IM ONE (19:00)
[2022-08-24 19:35] VITALS: BP 153/75
[2022-08-24] MEDS: ATORVASTATIN 40 MG TABLET GT SCH (21:05)
[2022-08-24] MEDS: INSULIN GLARGINE, 100 UNIT/ML CARTRIDGE SQ SCH (21:09)
--- NOTE | 2022-08-24 21:15 | NUR ---
Pt was given a flu vaccine, monitor for any adverse reaction x72 hrs...
[2022-08-25] MEDS: ALBUTEROL FS 2.5 MG/0.5 ML VIAL.NEB NEB SCH ×4 (00:51→20:27)
[2022-08-25] MEDS: GLUCERNA 1.2 1,000 ML BOTTLE GT SCH (04:53)
[2022-08-25] MEDS: LEVOTHYROXINE SODIUM 75 MCG TABLET PO SCH (05:07)
[2022-08-25] MEDS: BLOOD SUGAR DIAGNOSTIC 1 EACH STRIP IN SCH ×3 (05:08→17:20)
[2022-08-25] MEDS: INSULIN REGULAR, HUMAN 100 UNIT/ML 3 ML VIAL SQ PRN ×2 (05:09→13:50)
[2022-08-25 07:51] VITALS: BP 139/65
[2022-08-25] MEDS: CARVEDILOL 6.25 MG TABLET GT SCH ×2 (09:21→20:15)
[2022-08-25] MEDS: BUMETANIDE (1 MG) 1 MG TABLET GT SCH (09:21)
[2022-08-25] MEDS: POTASSIUM CHLORIDE 20 MEQ POWDER PACKET GT SCH (09:21)
[2022-08-25] MEDS: ACIDOPHILUS/BULGARICUS 1 EACH TAB.CHEW GT SCH ×2 (09:21→20:15)
[2022-08-25] MEDS: METOCLOPRAMIDE HCL 10 MG/10 ML UDC GT SCH ×2 (09:22→20:15)
[2022-08-25] MEDS: ACETAMINOPHEN 650 MG/20 ML UDC- SA PATIENTS-PAIN ONLY GT SCH (09:22)
[2022-08-25] MEDS: MULTIVIT W/MINERALS 1 TAB TABLET GT SCH (09:22)
[2022-08-25] MEDS: MODAFINIL 100 MG TABLET GT SCH (09:22)
[2022-08-25] MEDS: PANTOPRAZOLE 40 MG/PACK PACK GT SCH ×2 (09:22→20:15)
[2022-08-25] MEDS: METOLAZONE 2.5 MG TABLET GT SCH (09:22)
[2022-08-25] MEDS: ASCORBIC ACID 500 MG TABLET GT SCH (09:22)
[2022-08-25] MEDS: RIVAROXABAN 10 MG TABLET PO SCH (09:22)
[2022-08-25] MEDS: LACOSAMIDE ORAL SOLN 50 MG/5 ML UDC GT SCH ×2 (09:22→20:15)
[2022-08-25] MEDS: ZINC SULFATE 220 MG CAPSULE GT SCH (09:22)
[2022-08-25] MEDS: PROSOURCE / PROSTAT (PYXIS) 30 ML UDC GT SCH ×2 (09:22→17:19)
[2022-08-25] MEDS: AMANTADINE SUSP 50 MG/5 ML UDC GT SCH (09:22)
[2022-08-25] MEDS: Z GUARD REMEDY 2 OZ OINT TP SCH ×4 (09:23→20:15)
[2022-08-25] MEDS: NEOMY SULF/BACITRAC ZN/POLY 15 GM TUBE TP SCH ×2 (09:23→21:18)
[2022-08-25] MEDS: CLOTRIMAZOLE 1% 15 GM TUBE TP SCH ×2 (09:23→21:18)
[2022-08-25] MEDS: [UNRECOGNIZED DRUG - OTHER] TP SCH ×2 (09:23→21:18)
[2022-08-25] MEDS: VITAMINS A AND D 56.7 GM TUBE TP SCH ×4 (09:23→20:15)
[2022-08-25] MEDS: DAKINS QUARTER STRENGTH (0.125%) 480 ML BOTTLE TOP SCH ×2 (09:23→21:00)
[2022-08-25] MEDS: HYDROGEN PEROXIDE 480 ML BOTTLE TP SCH ×2 (09:33→20:27)
[2022-08-25 12:16] VITALS: BP 135/72
[2022-08-25] MEDS ORDERED: POTASSIUM CHLORIDE 20 MEQ POWDER PACKET GT ONE (14:00)
--- NOTE | 2022-08-25 14:53 | NUR ---
RT Pt received on ordered vent settings. Neb Tx is given and tolerated well. Trach tube is patent and secured. Vent plugged into red outlet. Ambu bag and back up trach at bedside. Alarms are set and audible. No SOB or respiratory distress noted at this time. Will continue to monitor.
--- NOTE | 2022-08-25 18:21 | NUR ---
monitored for s/p FLU vaccine given. afebrile. no signs of pain and discomfort. no signs of adverse effects noted. no signs of respiratory distress. will continue to monitor any untoward changes. endorsed.
[2022-08-25 20:00] VITALS: BP 132/70
[2022-08-25] MEDS: ATORVASTATIN 40 MG TABLET GT SCH (21:00)
[2022-08-25] MEDS: INSULIN GLARGINE, 100 UNIT/ML CARTRIDGE SQ SCH (21:19)
[2022-08-26] MEDS: BLOOD SUGAR DIAGNOSTIC 1 EACH STRIP IN SCH ×5 (00:02→23:50)
[2022-08-26] MEDS: INSULIN REGULAR, HUMAN 100 UNIT/ML 3 ML VIAL SQ PRN ×5 (00:02→23:51)
[2022-08-26] MEDS: ALBUTEROL FS 2.5 MG/0.5 ML VIAL.NEB NEB SCH ×4 (01:44→19:01)
[2022-08-26] MEDS: LEVOTHYROXINE SODIUM 75 MCG TABLET PO SCH (05:34)
[2022-08-26] MEDS: GLUCERNA 1.2 1,000 ML BOTTLE GT SCH (05:35)
[2022-08-26 07:42] VITALS: BP 135/70
[2022-08-26] MEDS: HYDROGEN PEROXIDE 480 ML BOTTLE TP SCH ×2 (09:00→21:18)
--- NOTE | 2022-08-26 09:45 | NUR ---
Received order to give an additional Potassium Chloride 40 mEq via GT x 1 for K 3.2.
[2022-08-26] MEDS: BUMETANIDE (1 MG) 1 MG TABLET GT SCH (09:55)
[2022-08-26] MEDS: LACOSAMIDE ORAL SOLN 50 MG/5 ML UDC GT SCH ×2 (09:56→21:06)
[2022-08-26] MEDS: AMANTADINE SUSP 50 MG/5 ML UDC GT SCH (09:56)
[2022-08-26] MEDS: ZINC SULFATE 220 MG CAPSULE GT SCH (09:56)
[2022-08-26] MEDS: MODAFINIL 100 MG TABLET GT SCH (09:56)
[2022-08-26] MEDS: ACETAMINOPHEN 650 MG/20 ML UDC- SA PATIENTS-PAIN ONLY GT SCH (09:56)
[2022-08-26] MEDS: METOLAZONE 2.5 MG TABLET GT SCH (09:56)
[2022-08-26] MEDS: POTASSIUM CHLORIDE 20 MEQ POWDER PACKET GT SCH (09:56)
[2022-08-26] MEDS: ACIDOPHILUS/BULGARICUS 1 EACH TAB.CHEW GT SCH ×2 (09:56→21:05)
[2022-08-26] MEDS: CARVEDILOL 6.25 MG TABLET GT SCH ×2 (09:56→21:05)
[2022-08-26] MEDS: METOCLOPRAMIDE HCL 10 MG/10 ML UDC GT SCH ×2 (09:56→21:06)
[2022-08-26] MEDS: PANTOPRAZOLE 40 MG/PACK PACK GT SCH ×2 (09:56→21:06)
[2022-08-26] MEDS: PROSOURCE / PROSTAT (PYXIS) 30 ML UDC GT SCH ×2 (09:56→17:00)
[2022-08-26] MEDS: MULTIVIT W/MINERALS 1 TAB TABLET GT SCH (09:56)
[2022-08-26] MEDS: ASCORBIC ACID 500 MG TABLET GT SCH (09:56)
[2022-08-26] MEDS: RIVAROXABAN 10 MG TABLET PO SCH (09:57)
[2022-08-26] MEDS: VITAMINS A AND D 56.7 GM TUBE TP SCH ×4 (10:35→21:07)
[2022-08-26] MEDS: DAKINS QUARTER STRENGTH (0.125%) 480 ML BOTTLE TOP SCH ×2 (10:35→21:06)
[2022-08-26] MEDS: Z GUARD REMEDY 2 OZ OINT TP SCH ×2 (10:35→21:06)
[2022-08-26] MEDS: NEOMY SULF/BACITRAC ZN/POLY 15 GM TUBE TP SCH ×2 (10:35→21:06)
[2022-08-26] MEDS: [UNRECOGNIZED DRUG - OTHER] TP SCH ×2 (10:35→21:06)
[2022-08-26] MEDS ORDERED: POTASSIUM CHLORIDE 20 MEQ POWDER PACKET PO ONE (11:00)
--- NOTE | 2022-08-26 11:00 | NUR ---
Called [facility] on [facility] to follow up on Santyl ointment. [facility] said it is now ready for picker and co-pay is $4. Notified pt's son Nagi. He said he will pick it up and will bring it to the facility tomorrow or on Tuesday.
[2022-08-26 12:30] VITALS: BP 138/65
[2022-08-26 18:00] VITALS: BP 124/66
--- NOTE | 2022-08-26 18:37 | NUR ---
JAMA Shirley ordered cholecystostomy drain study in relation to pt's biliary drain. Radiology said they do not perform that procedure. Informed JAMA Cleveland. She said to see if either fistulagram sinus tract or fluoroscopy -1 hour can be done. Asked her which one would she like to order. She said she will ask Dr Yasmany Mcclellan and have him talk with the radiologist.
--- NOTE | 2022-08-26 18:47 | NUR ---
Pt received the flu vaccine on 08/24/22. No adverse reactions noted during this shift.
[2022-08-26 19:35] VITALS: BP 124/66
[2022-08-26] MEDS: ATORVASTATIN 40 MG TABLET GT SCH (21:07)
[2022-08-26] MEDS: INSULIN GLARGINE, 100 UNIT/ML CARTRIDGE SQ SCH (21:08)
[2022-08-26 23:43] VITALS: BP 137/71
[2022-08-27] MEDS: ALBUTEROL FS 2.5 MG/0.5 ML VIAL.NEB NEB SCH ×4 (01:02→20:03)
--- NOTE | 2022-08-27 04:40 | NUR ---
RT Pt recvd awake on current AC vent settings. Trach is patent and secured, suction done PRN, neb tx given and marie well. Spo2 >92%. No SOB or respiratory distress noted at this time. Trach care done. Vent plugged into red outlet with alarms on and audible. Spare trach and ambu at bedside.
[2022-08-27] MEDS: LEVOTHYROXINE SODIUM 75 MCG TABLET PO SCH (05:10)
[2022-08-27] MEDS: BLOOD SUGAR DIAGNOSTIC 1 EACH STRIP IN SCH ×3 (05:20→17:50)
[2022-08-27] MEDS: INSULIN REGULAR, HUMAN 100 UNIT/ML 3 ML VIAL SQ PRN ×3 (05:20→17:50)
[2022-08-27 08:13] VITALS: BP 146/61
[2022-08-27] MEDS: HYDROGEN PEROXIDE 480 ML BOTTLE TP SCH ×2 (09:25→20:03)
[2022-08-27] MEDS: ACIDOPHILUS/BULGARICUS 1 EACH TAB.CHEW GT SCH ×2 (09:59→21:46)
[2022-08-27] MEDS: PROSOURCE / PROSTAT (PYXIS) 30 ML UDC GT SCH ×3 (09:59→17:50)
[2022-08-27] MEDS: PANTOPRAZOLE 40 MG/PACK PACK GT SCH ×2 (09:59→21:46)
[2022-08-27] MEDS: BUMETANIDE (1 MG) 1 MG TABLET GT SCH (09:59)
[2022-08-27] MEDS: POTASSIUM CHLORIDE 20 MEQ POWDER PACKET GT SCH (09:59)
[2022-08-27] MEDS: CARVEDILOL 6.25 MG TABLET GT SCH ×2 (09:59→21:46)
[2022-08-27] MEDS: MULTIVIT W/MINERALS 1 TAB TABLET GT SCH (10:00)
[2022-08-27] MEDS: Z GUARD REMEDY 2 OZ OINT TP SCH ×2 (10:00→21:47)
[2022-08-27] MEDS: LACOSAMIDE ORAL SOLN 50 MG/5 ML UDC GT SCH ×2 (10:00→21:47)
[2022-08-27] MEDS: ASCORBIC ACID 500 MG TABLET GT SCH (10:00)
[2022-08-27] MEDS: VITAMINS A AND D 56.7 GM TUBE TP SCH ×4 (10:00→21:47)
[2022-08-27] MEDS: AMANTADINE SUSP 50 MG/5 ML UDC GT SCH (10:00)
[2022-08-27] MEDS: MODAFINIL 100 MG TABLET GT SCH (10:00)
[2022-08-27] MEDS: METOLAZONE 2.5 MG TABLET GT SCH (10:00)
[2022-08-27] MEDS: ACETAMINOPHEN 650 MG/20 ML UDC- SA PATIENTS-PAIN ONLY GT SCH (10:00)
[2022-08-27] MEDS: ZINC SULFATE 220 MG CAPSULE GT SCH (10:00)
[2022-08-27] MEDS: RIVAROXABAN 10 MG TABLET PO SCH (10:00)
[2022-08-27] MEDS: METOCLOPRAMIDE HCL 10 MG/10 ML UDC GT SCH ×2 (10:00→21:46)
[2022-08-27] MEDS: NEOMY SULF/BACITRAC ZN/POLY 15 GM TUBE TP SCH ×2 (10:30→21:47)
[2022-08-27] MEDS: [UNRECOGNIZED DRUG - OTHER] TP SCH ×2 (10:30→21:47)
[2022-08-27] MEDS: DAKINS QUARTER STRENGTH (0.125%) 480 ML BOTTLE TOP SCH ×2 (10:30→21:47)
[2022-08-27] MEDS ORDERED: POTASSIUM CHLORIDE 20 MEQ POWDER PACKET PO ONE (11:00)
--- NOTE | 2022-08-27 14:28 | NUR ---
Seen and examined by Dr. Moreno, reviewed recent K+ level, additional KCL 20meq given for K=3.3. MD ordered BMP, Mg, TSH and HbAIc in AM per pharmacy recommendations. Dr. Moreno also in agreement with dietary recommendations to increase GT feeding rate and protein supplement Prosource from BID to Q 6 hours.
[2022-08-27] MEDS: GLUCERNA 1.2 1,000 ML BOTTLE GT SCH (15:09)
--- NOTE | 2022-08-27 15:27 | NUR ---
INTERDISCIPLINARY PLAN OF CARE CONFERENCE took place today. The pt.'s daughter, Gloria Larson [phone] Khan and Interdisciplinary team discussed the plan of care in detail. Current orders as well as treatments and medications were reviewed. Per CRN, the pt. has pacemaker and information needed about it. SW will follow up.
--- NOTE | 2022-08-27 18:06 | NUR ---
Updated Tana, patient's daughter of what was discussed during IDT meeting and recommendations by the team. Informed Tana of the labs ordered tomorrow, GT feeding rate was increased from 50 cc/hr to 65cc/hr. and protein supplement changed from BID to QID for wound healing. Tana asked if patient was seen by a neurologist. According to patient's daughter, patient was supposed to have a video appointment with a neurologist Dr. Larkin at [facility]. This did not materialized because she was not aware of the appointment until the office called to inform her that the appointment was missed. Tana is requesting Neurology consult for patient, she doesn't think Dr. Larkin will come to [facility] and she is OK with the neurologist that comes to [facility]. Will refer family's request to Dr. Moreno on his next round. Endorsed.
[2022-08-27 18:58] VITALS: BP 127/59
[2022-08-27 19:16] VITALS: BP 149/60
[2022-08-27] MEDS: ATORVASTATIN 40 MG TABLET GT SCH (21:47)
[2022-08-27] MEDS: INSULIN GLARGINE, 100 UNIT/ML CARTRIDGE SQ SCH (22:00)
--- NOTE | 2022-08-27 22:15 | NUR ---
Held routine Lantus 27 units d/t BS 96. pt awake. no s/s of acute respiratory distress. will continue to monitor closely.
[2022-08-28 00:29] VITALS: BP 126/57
[2022-08-28] MEDS: ALBUTEROL FS 2.5 MG/0.5 ML VIAL.NEB NEB SCH ×4 (00:45→19:08)
[2022-08-28] MEDS: PROSOURCE / PROSTAT (PYXIS) 30 ML UDC GT SCH ×4 (00:54→17:16)
[2022-08-28] MEDS: BLOOD SUGAR DIAGNOSTIC 1 EACH STRIP IN SCH ×4 (00:54→17:17)
[2022-08-28] MEDS: INSULIN REGULAR, HUMAN 100 UNIT/ML 3 ML VIAL SQ PRN ×4 (00:55→17:17)
[2022-08-28] MEDS: LEVOTHYROXINE SODIUM 75 MCG TABLET PO SCH (05:51)
[2022-08-28] MEDS: GLUCERNA 1.2 1,000 ML BOTTLE GT SCH (06:24)
[2022-08-28 07:24] VITALS: BP 131/62
[2022-08-28 07:28] LABS: CALCIUM, SERUM 8.8 mg/dL (8.5-10.1); CREATININE 0.7 mg/dL (0.6-1.3); MAGNESIUM 1.9 mg/dL (1.8-2.4); POTASSIUM 3.6 mmol/L (3.5-5.1)
[2022-08-28 07:44] LABS: THYROID STIMULATING HORMONE 3.462 uIU/mL (0.358-3.74)
[2022-08-28] MEDS: BUMETANIDE (1 MG) 1 MG TABLET GT SCH (09:51)
[2022-08-28] MEDS: ACIDOPHILUS/BULGARICUS 1 EACH TAB.CHEW GT SCH ×2 (09:52→20:09)
[2022-08-28] MEDS: CARVEDILOL 6.25 MG TABLET GT SCH ×2 (09:52→20:09)
[2022-08-28] MEDS: ZINC SULFATE 220 MG CAPSULE GT SCH (09:52)
[2022-08-28] MEDS: LACOSAMIDE ORAL SOLN 50 MG/5 ML UDC GT SCH ×2 (09:52→20:09)
[2022-08-28] MEDS: PANTOPRAZOLE 40 MG/PACK PACK GT SCH ×2 (09:52→20:09)
[2022-08-28] MEDS: MULTIVIT W/MINERALS 1 TAB TABLET GT SCH (09:52)
[2022-08-28] MEDS: MODAFINIL 100 MG TABLET GT SCH (09:52)
[2022-08-28] MEDS: POTASSIUM CHLORIDE 20 MEQ POWDER PACKET GT SCH (09:52)
[2022-08-28] MEDS: ASCORBIC ACID 500 MG TABLET GT SCH (09:52)
[2022-08-28] MEDS: AMANTADINE SUSP 50 MG/5 ML UDC GT SCH (09:52)
[2022-08-28] MEDS: ACETAMINOPHEN 650 MG/20 ML UDC- SA PATIENTS-PAIN ONLY GT SCH (09:52)
[2022-08-28] MEDS: METOCLOPRAMIDE HCL 10 MG/10 ML UDC GT SCH ×2 (09:52→20:09)
[2022-08-28] MEDS: METOLAZONE 2.5 MG TABLET GT SCH (09:52)
[2022-08-28] MEDS: [UNRECOGNIZED DRUG - OTHER] TP SCH ×2 (09:53→20:10)
[2022-08-28] MEDS: NEOMY SULF/BACITRAC ZN/POLY 15 GM TUBE TP SCH ×2 (09:53→20:10)
[2022-08-28] MEDS: Z GUARD REMEDY 2 OZ OINT TP SCH ×2 (09:53→20:10)
[2022-08-28] MEDS: VITAMINS A AND D 56.7 GM TUBE TP SCH ×4 (09:53→20:11)
[2022-08-28] MEDS: RIVAROXABAN 10 MG TABLET PO SCH (09:53)
[2022-08-28] MEDS: DAKINS QUARTER STRENGTH (0.125%) 480 ML BOTTLE TOP SCH ×2 (09:53→20:09)
[2022-08-28] MEDS: HYDROGEN PEROXIDE 480 ML BOTTLE TP SCH ×2 (09:58→20:58)
[2022-08-28 11:47] VITALS: BP 118/57
--- NOTE | 2022-08-28 12:00 | NUR ---
Notified Dr. Moreno lab results for today, he ordered to hold GT water flush 80 ml q 4 hrs for now for Na level of 131, he is aware of BUN 65. Noted and carried out.
--- NOTE | 2022-08-28 13:35 | NUR ---
Patients' son (kusum) came and brought the santyl ointment, with new order to patients' sacral pressure sore, to add santyl ointment to venelex, noted and carried out.
[2022-08-28 17:55] VITALS: BP 150/68
[2022-08-28] MEDS: COLLAGENASE 30 GM TUBE TP SCH (20:10)
[2022-08-28] MEDS ORDERED: Z GUARD REMEDY 2 OZ OINT TP PRN (21:00)
[2022-08-28] MEDS ORDERED: DAKINS QUARTER STRENGTH (0.125%) 480 ML BOTTLE TOP PRN (21:00)
[2022-08-28] MEDS: ATORVASTATIN 40 MG TABLET GT SCH (21:24)
[2022-08-28] MEDS: INSULIN GLARGINE, 100 UNIT/ML CARTRIDGE SQ SCH (21:25)
[2022-08-29] MEDS: BLOOD SUGAR DIAGNOSTIC 1 EACH STRIP IN SCH ×4 (00:04→17:39)
[2022-08-29] MEDS: PROSOURCE / PROSTAT (PYXIS) 30 ML UDC GT SCH ×4 (00:04→17:39)
[2022-08-29] MEDS: INSULIN REGULAR, HUMAN 100 UNIT/ML 3 ML VIAL SQ PRN ×4 (00:05→17:42)
[2022-08-29] MEDS: ALBUTEROL FS 2.5 MG/0.5 ML VIAL.NEB NEB SCH ×4 (02:01→18:59)
[2022-08-29] MEDS: LEVOTHYROXINE SODIUM 75 MCG TABLET PO SCH (05:02)
[2022-08-29] MEDS: GLUCERNA 1.2 1,000 ML BOTTLE GT SCH (06:35)
[2022-08-29 07:10] VITALS: BP 128/76
[2022-08-29] MEDS: COLLAGENASE 30 GM TUBE TP SCH ×2 (09:00→20:07)
[2022-08-29] MEDS: DAKINS QUARTER STRENGTH (0.125%) 480 ML BOTTLE TOP SCH ×2 (09:00→20:06)
[2022-08-29] MEDS: NEOMY SULF/BACITRAC ZN/POLY 15 GM TUBE TP SCH ×2 (09:00→20:06)
[2022-08-29] MEDS: Z GUARD REMEDY 2 OZ OINT TP SCH ×2 (09:00→20:07)
[2022-08-29] MEDS: AMANTADINE SUSP 50 MG/5 ML UDC GT SCH (09:00)
[2022-08-29] MEDS: [UNRECOGNIZED DRUG - OTHER] TP SCH ×2 (09:00→20:06)
[2022-08-29] MEDS: VITAMINS A AND D 56.7 GM TUBE TP SCH ×4 (09:00→20:07)
[2022-08-29] MEDS: HYDROGEN PEROXIDE 480 ML BOTTLE TP SCH ×2 (09:13→20:21)
[2022-08-29] MEDS: BUMETANIDE (1 MG) 1 MG TABLET GT SCH (09:55)
[2022-08-29] MEDS: METOCLOPRAMIDE HCL 10 MG/10 ML UDC GT SCH ×2 (09:56→20:05)
[2022-08-29] MEDS: MODAFINIL 100 MG TABLET GT SCH (09:56)
[2022-08-29] MEDS: POTASSIUM CHLORIDE 20 MEQ POWDER PACKET GT SCH (09:56)
[2022-08-29] MEDS: ACIDOPHILUS/BULGARICUS 1 EACH TAB.CHEW GT SCH ×2 (09:56→21:05)
[2022-08-29] MEDS: MULTIVIT W/MINERALS 1 TAB TABLET GT SCH (09:56)
[2022-08-29] MEDS: CARVEDILOL 6.25 MG TABLET GT SCH ×2 (09:56→20:05)
[2022-08-29] MEDS: PANTOPRAZOLE 40 MG/PACK PACK GT SCH ×2 (09:56→20:05)
[2022-08-29] MEDS: RIVAROXABAN 10 MG TABLET PO SCH (09:57)
[2022-08-29] MEDS: ZINC SULFATE 220 MG CAPSULE GT SCH (09:57)
[2022-08-29] MEDS: ACETAMINOPHEN 650 MG/20 ML UDC- SA PATIENTS-PAIN ONLY GT SCH (09:57)
[2022-08-29] MEDS: LACOSAMIDE ORAL SOLN 50 MG/5 ML UDC GT SCH ×2 (09:57→20:06)
[2022-08-29] MEDS: ASCORBIC ACID 500 MG TABLET GT SCH (09:57)
[2022-08-29] MEDS: METOLAZONE 2.5 MG TABLET GT SCH (09:57)
--- NOTE | 2022-08-29 10:35 | NUR ---
Received order to give an additional Potassium Chloride 20 mEq via GT x 1 today for K 3.4.
[2022-08-29] MEDS ORDERED: POTASSIUM CHLORIDE 20 MEQ POWDER PACKET PO ONE (12:00)
[2022-08-29 13:15] VITALS: BP 131/62
[2022-08-29 19:58] VITALS: BP 158/89
[2022-08-29] MEDS: INSULIN GLARGINE, 100 UNIT/ML CARTRIDGE SQ SCH (21:05)
[2022-08-29] MEDS: ATORVASTATIN 40 MG TABLET GT SCH (21:05)
[2022-08-30] MEDS: PROSOURCE / PROSTAT (PYXIS) 30 ML UDC GT SCH ×4 (00:09→17:53)
[2022-08-30] MEDS: BLOOD SUGAR DIAGNOSTIC 1 EACH STRIP IN SCH ×4 (00:09→18:03)
[2022-08-30] MEDS: INSULIN REGULAR, HUMAN 100 UNIT/ML 3 ML VIAL SQ PRN ×4 (00:10→18:03)
[2022-08-30] MEDS: ALBUTEROL FS 2.5 MG/0.5 ML VIAL.NEB NEB SCH ×4 (00:48→20:09)
[2022-08-30 00:52] VITALS: BP 112/57
[2022-08-30] MEDS: GLUCERNA 1.2 1,000 ML BOTTLE GT SCH ×2 (05:03→22:50)
[2022-08-30] MEDS: LEVOTHYROXINE SODIUM 75 MCG TABLET PO SCH (05:11)
[2022-08-30 07:20] VITALS: BP 135/69
[2022-08-30] MEDS: HYDROGEN PEROXIDE 480 ML BOTTLE TP SCH ×2 (09:30→21:16)
--- NOTE | 2022-08-30 09:50 | NUR ---
Received order to give additional Potassium Chloride 20 mEq via GT x 1 today for K+ 3.4.
[2022-08-30] MEDS: BUMETANIDE (1 MG) 1 MG TABLET GT SCH (09:51)
[2022-08-30] MEDS: METOCLOPRAMIDE HCL 10 MG/10 ML UDC GT SCH ×2 (09:52→20:59)
[2022-08-30] MEDS: POTASSIUM CHLORIDE 20 MEQ POWDER PACKET GT SCH ×2 (09:52→17:53)
[2022-08-30] MEDS: ACIDOPHILUS/BULGARICUS 1 EACH TAB.CHEW GT SCH ×2 (09:52→20:59)
[2022-08-30] MEDS: MODAFINIL 100 MG TABLET GT SCH (09:52)
[2022-08-30] MEDS: PANTOPRAZOLE 40 MG/PACK PACK GT SCH ×2 (09:52→20:59)
[2022-08-30] MEDS: CARVEDILOL 6.25 MG TABLET GT SCH ×2 (09:52→20:59)
[2022-08-30] MEDS: LACOSAMIDE ORAL SOLN 50 MG/5 ML UDC GT SCH ×2 (09:53→20:59)
[2022-08-30] MEDS: AMANTADINE SUSP 50 MG/5 ML UDC GT SCH (09:53)
[2022-08-30] MEDS: ACETAMINOPHEN 650 MG/20 ML UDC- SA PATIENTS-PAIN ONLY GT SCH (09:53)
[2022-08-30] MEDS: MULTIVIT W/MINERALS 1 TAB TABLET GT SCH (09:53)
[2022-08-30] MEDS: RIVAROXABAN 10 MG TABLET PO SCH (09:54)
[2022-08-30] MEDS: ASCORBIC ACID 500 MG TABLET GT SCH (09:54)
[2022-08-30] MEDS: ZINC SULFATE 220 MG CAPSULE GT SCH (09:54)
[2022-08-30] MEDS: METOLAZONE 2.5 MG TABLET GT SCH (09:54)
[2022-08-30] MEDS: Z GUARD REMEDY 2 OZ OINT TP SCH ×2 (10:30→21:10)
[2022-08-30] MEDS: COLLAGENASE 30 GM TUBE TP SCH ×2 (10:30→21:10)
[2022-08-30] MEDS: DAKINS QUARTER STRENGTH (0.125%) 480 ML BOTTLE TOP SCH ×2 (10:30→21:10)
[2022-08-30] MEDS: [UNRECOGNIZED DRUG - OTHER] TP SCH ×2 (10:30→21:10)
[2022-08-30] MEDS: VITAMINS A AND D 56.7 GM TUBE TP SCH ×4 (10:30→21:10)
[2022-08-30] MEDS: NEOMY SULF/BACITRAC ZN/POLY 15 GM TUBE TP SCH ×2 (10:30→21:10)
[2022-08-30 12:00] VITALS: BP 114/22
[2022-08-30] MEDS ORDERED: POTASSIUM CHLORIDE 20 MEQ POWDER PACKET GT ONE (12:00)
--- NOTE | 2022-08-30 12:08 | NUR ---
Seen and examined by JAMA Fuchs, relayed today's K+ level- 3.4, gave order to increase KCL to 40 MEQ via GT BID, carried out. Will continue to monitor.
[2022-08-30 20:00] VITALS: BP 150/82
[2022-08-30] MEDS: ATORVASTATIN 40 MG TABLET GT SCH (21:11)
[2022-08-30] MEDS: INSULIN GLARGINE, 100 UNIT/ML CARTRIDGE SQ SCH (22:01)
--- NOTE | 2022-08-30 23:43 | NUR ---
RT Pt received on ordered vent settings: AC 12 400 25% +5. Tolerating with an SPO2 of 98%. No SOB or respiratory distress noted during assessment. Q6 nebulizer tx given and tolerated with no adverse reactions noted. Suctioned x2. Trach is secured and patent. Emergency trach and Ambu-Bag are at the bedside. Vent is plugged into red outlet, and alarms are on and audible.
[2022-08-31] MEDS: BLOOD SUGAR DIAGNOSTIC 1 EACH STRIP IN SCH ×4 (00:57→17:26)
[2022-08-31] MEDS: PROSOURCE / PROSTAT (PYXIS) 30 ML UDC GT SCH ×4 (00:57→17:09)
[2022-08-31] MEDS: ALBUTEROL FS 2.5 MG/0.5 ML VIAL.NEB NEB SCH ×4 (02:20→20:03)
[2022-08-31] MEDS: LEVOTHYROXINE SODIUM 75 MCG TABLET PO SCH (06:22)
[2022-08-31 07:03] VITALS: BP 132/74
[2022-08-31] MEDS: NEOMY SULF/BACITRAC ZN/POLY 15 GM TUBE TP SCH ×2 (09:00→20:36)
[2022-08-31] MEDS: HYDROGEN PEROXIDE 480 ML BOTTLE TP SCH ×2 (09:27→21:40)
[2022-08-31] MEDS: AMANTADINE SUSP 50 MG/5 ML UDC GT SCH (09:45)
[2022-08-31] MEDS: ACIDOPHILUS/BULGARICUS 1 EACH TAB.CHEW GT SCH ×2 (09:45→20:35)
[2022-08-31] MEDS: ACETAMINOPHEN 650 MG/20 ML UDC- SA PATIENTS-PAIN ONLY GT SCH (09:46)
[2022-08-31] MEDS: MULTIVIT W/MINERALS 1 TAB TABLET GT SCH (09:46)
[2022-08-31] MEDS: ZINC SULFATE 220 MG CAPSULE GT SCH (09:47)
[2022-08-31] MEDS: ASCORBIC ACID 500 MG TABLET GT SCH (09:47)
[2022-08-31] MEDS: LACOSAMIDE ORAL SOLN 50 MG/5 ML UDC GT SCH ×2 (09:53→20:35)
[2022-08-31] MEDS: METOLAZONE 2.5 MG TABLET GT SCH (09:53)
[2022-08-31] MEDS: RIVAROXABAN 10 MG TABLET PO SCH (09:53)
[2022-08-31] MEDS: MODAFINIL 100 MG TABLET GT SCH (09:54)
[2022-08-31] MEDS: POTASSIUM CHLORIDE 20 MEQ POWDER PACKET GT SCH ×2 (09:54→17:09)
[2022-08-31] MEDS: PANTOPRAZOLE 40 MG/PACK PACK GT SCH ×2 (09:54→20:35)
[2022-08-31] MEDS: METOCLOPRAMIDE HCL 10 MG/10 ML UDC GT SCH ×2 (09:54→20:35)
[2022-08-31] MEDS: BUMETANIDE (1 MG) 1 MG TABLET GT SCH (09:59)
[2022-08-31] MEDS: CARVEDILOL 6.25 MG TABLET GT SCH ×2 (10:00→20:35)
[2022-08-31] MEDS ORDERED: Z GUARD REMEDY 4 OZ OINT TP PRN (10:00)
[2022-08-31] MEDS: VITAMINS A AND D 56.7 GM TUBE TP SCH ×4 (10:30→20:36)
[2022-08-31] MEDS: COLLAGENASE 30 GM TUBE TP SCH ×2 (10:30→20:36)
[2022-08-31] MEDS: [UNRECOGNIZED DRUG - OTHER] TP SCH ×2 (10:30→20:36)
[2022-08-31] MEDS: DAKINS QUARTER STRENGTH (0.125%) 480 ML BOTTLE TOP SCH ×2 (10:30→20:36)
[2022-08-31 12:14] VITALS: BP 131/68
[2022-08-31] MEDS: INSULIN REGULAR, HUMAN 100 UNIT/ML 3 ML VIAL SQ PRN ×2 (12:41→17:27)
--- NOTE | 2022-08-31 15:45 | NUR ---
JAMA Shirley informed charge nurse that she spoke with the radiologist regarding cholecystostomy drain check. JAMA Simpson said to enter the order under fluoroscopy 1 hour.
--- NOTE | 2022-08-31 16:00 | NUR ---
Charge nurse called radiology and was told to enter cholecystostomy drain check under cholangiogram T tube. Radiology said they will do fluoroscopy.
[2022-08-31] MEDS: GLUCERNA 1.2 1,000 ML BOTTLE GT SCH (18:53)
[2022-08-31 19:07] VITALS: BP 127/60
[2022-08-31] MEDS: Z GUARD REMEDY 4 OZ OINT TP SCH (20:36)
[2022-08-31] MEDS: ATORVASTATIN 40 MG TABLET GT SCH (21:59)
[2022-08-31] MEDS: INSULIN GLARGINE, 100 UNIT/ML CARTRIDGE SQ SCH (22:00)
[2022-09-01] MEDS: ALBUTEROL FS 2.5 MG/0.5 ML VIAL.NEB NEB SCH ×4 (02:02→19:40)
[2022-09-01] MEDS: PROSOURCE / PROSTAT (PYXIS) 30 ML UDC GT SCH ×4 (05:33→17:27)
[2022-09-01] MEDS: LEVOTHYROXINE SODIUM 75 MCG TABLET PO SCH (05:33)
[2022-09-01] MEDS: BLOOD SUGAR DIAGNOSTIC 1 EACH STRIP IN SCH ×4 (05:33→17:27)
[2022-09-01 07:12] VITALS: BP 150/52
[2022-09-01] MEDS ORDERED: IOHEXOL-350 100 ML VIAL IV ONE (09:45)
--- NOTE | 2022-09-01 09:45 | NUR ---
Resident was picked up by 2 IR staff for scheduled procedure Fluoroscopy/ Cholangiogram to check cholecystectomy drain per resident bed accompanied by RT Ryan. Resident awake, no s/s of distress, trach secured and midline. On mechanical ventilator. GT intact and patent, NPO since midnight, biliary drain on right side intact and patent draining yellowish liquid. Emergency equipment with resident during transport. New account was created by admitting for the procedure.
[2022-09-01] MEDS: HYDROGEN PEROXIDE 480 ML BOTTLE TP SCH ×2 (09:49→19:40)
--- NOTE | 2022-09-01 11:00 | NUR ---
Resident came back from radiology, procedure was done and tolerated well per IR staff Femi. Resident awake, appears comfortable, no s/s of distress. Repositioned and made comfortable. Will continue to monitor.
[2022-09-01] MEDS: DAKINS QUARTER STRENGTH (0.125%) 480 ML BOTTLE TOP SCH ×2 (11:15→21:50)
[2022-09-01] MEDS: COLLAGENASE 30 GM TUBE TP SCH ×2 (11:15→21:51)
[2022-09-01] MEDS: Z GUARD REMEDY 4 OZ OINT TP SCH ×2 (11:15→21:51)
[2022-09-01] MEDS: [UNRECOGNIZED DRUG - OTHER] TP SCH ×2 (11:15→21:50)
[2022-09-01] MEDS: NEOMY SULF/BACITRAC ZN/POLY 15 GM TUBE TP SCH ×2 (11:15→21:50)
[2022-09-01] MEDS: VITAMINS A AND D 56.7 GM TUBE TP SCH ×4 (11:15→21:51)
[2022-09-01] MEDS: MODAFINIL 100 MG TABLET GT SCH (11:30)
[2022-09-01] MEDS: METOCLOPRAMIDE HCL 10 MG/10 ML UDC GT SCH ×2 (11:30→21:50)
[2022-09-01] MEDS: POTASSIUM CHLORIDE 20 MEQ POWDER PACKET GT SCH ×2 (11:30→17:27)
[2022-09-01] MEDS: PANTOPRAZOLE 40 MG/PACK PACK GT SCH ×2 (11:30→21:50)
[2022-09-01] MEDS: ACIDOPHILUS/BULGARICUS 1 EACH TAB.CHEW GT SCH ×2 (11:30→21:50)
[2022-09-01] MEDS: RIVAROXABAN 10 MG TABLET PO SCH (11:30)
[2022-09-01] MEDS: METOLAZONE 2.5 MG TABLET GT SCH (11:30)
[2022-09-01] MEDS: MULTIVIT W/MINERALS 1 TAB TABLET GT SCH (11:30)
[2022-09-01] MEDS: LACOSAMIDE ORAL SOLN 50 MG/5 ML UDC GT SCH ×2 (11:30→21:50)
[2022-09-01] MEDS: BUMETANIDE (1 MG) 1 MG TABLET GT SCH (11:30)
[2022-09-01] MEDS: ASCORBIC ACID 500 MG TABLET GT SCH (11:30)
[2022-09-01] MEDS: AMANTADINE SUSP 50 MG/5 ML UDC GT SCH (11:30)
[2022-09-01] MEDS: ZINC SULFATE 220 MG CAPSULE GT SCH (11:30)
[2022-09-01] MEDS: ACETAMINOPHEN 650 MG/20 ML UDC- SA PATIENTS-PAIN ONLY GT SCH (11:30)
[2022-09-01] MEDS: CARVEDILOL 6.25 MG TABLET GT SCH ×2 (11:30→21:50)
[2022-09-01 11:47] VITALS: BP 138/61
[2022-09-01] MEDS: INSULIN REGULAR, HUMAN 100 UNIT/ML 3 ML VIAL SQ PRN ×2 (11:53→17:28)
--- NOTE | 2022-09-01 15:57 | NUR ---
Visitation Guidelines: SUNDAY called the pt.'s son, Nagi [phone] and call went to [employer]. SUNDAY left brief message reiterating visitation guidelines and offering to send guidelines via email to family that will be visiting pt. to ensure a successful visit. SUNDAY left call back number.
--- NOTE | 2022-09-01 16:46 | NUR ---
Informed UNDERWRITING INTERNSHIP JONATHAN ZAIDI that resident completed her antibiotics, to evaluate contact isolation for ESBL- E. Coli of urine, wound and biliary drain, MDRO E. coli- sputum. Per Jonathan patient doesn't need to be on isolation, we can d/c isolation without reculture. Resident afebrile. Palacios catheter intact and patent draining clear, light yellow urine, no sediments noted. Biliary drain draining dark yellow with a tinged of green liquid, drain site is clean and intact, no signs of infection. Sacrococcyx pressure wound with slough, no foul odor, small amount of bleeding noted. With white, thin small amount tracheal secretions. Vital signs BP- 140/67, HR- 64, Temp. 97.4F, O2 sat. 100%. Will continue to monitor.
[2022-09-01 17:50] VITALS: BP 140/67
[2022-09-01 19:59] VITALS: BP 126/72
[2022-09-01] MEDS: ATORVASTATIN 40 MG TABLET GT SCH (21:51)
[2022-09-01] MEDS: INSULIN GLARGINE, 100 UNIT/ML CARTRIDGE SQ SCH (21:52)
[2022-09-02 00:02] VITALS: BP 148/56
[2022-09-02] MEDS: BLOOD SUGAR DIAGNOSTIC 1 EACH STRIP IN SCH ×4 (00:21→17:11)
[2022-09-02] MEDS: PROSOURCE / PROSTAT (PYXIS) 30 ML UDC GT SCH ×4 (00:21→17:11)
[2022-09-02] MEDS: INSULIN REGULAR, HUMAN 100 UNIT/ML 3 ML VIAL SQ PRN ×4 (00:22→17:13)
[2022-09-02] MEDS: ALBUTEROL FS 2.5 MG/0.5 ML VIAL.NEB NEB SCH ×4 (01:37→19:43)
[2022-09-02] MEDS: GLUCERNA 1.2 1,000 ML BOTTLE GT SCH (05:41)
[2022-09-02] MEDS: LEVOTHYROXINE SODIUM 75 MCG TABLET PO SCH (05:41)
[2022-09-02] MEDS: BUMETANIDE (1 MG) 1 MG TABLET GT SCH (08:17)
[2022-09-02] MEDS: LACOSAMIDE ORAL SOLN 50 MG/5 ML UDC GT SCH ×2 (08:18→20:34)
[2022-09-02] MEDS: ACETAMINOPHEN 650 MG/20 ML UDC- SA PATIENTS-PAIN ONLY GT SCH (08:18)
[2022-09-02] MEDS: PANTOPRAZOLE 40 MG/PACK PACK GT SCH ×2 (08:18→20:34)
[2022-09-02] MEDS: ACIDOPHILUS/BULGARICUS 1 EACH TAB.CHEW GT SCH ×2 (08:18→20:34)
[2022-09-02] MEDS: AMANTADINE SUSP 50 MG/5 ML UDC GT SCH (08:18)
[2022-09-02] MEDS: CARVEDILOL 6.25 MG TABLET GT SCH ×2 (08:18→20:34)
[2022-09-02] MEDS: POTASSIUM CHLORIDE 20 MEQ POWDER PACKET GT SCH ×2 (08:18→16:13)
[2022-09-02] MEDS: METOCLOPRAMIDE HCL 10 MG/10 ML UDC GT SCH ×2 (08:18→20:34)
[2022-09-02] MEDS: MULTIVIT W/MINERALS 1 TAB TABLET GT SCH (08:18)
[2022-09-02] MEDS: MODAFINIL 100 MG TABLET GT SCH (08:18)
[2022-09-02] MEDS: DAKINS QUARTER STRENGTH (0.125%) 480 ML BOTTLE TOP SCH ×2 (08:19→20:34)
[2022-09-02] MEDS: ZINC SULFATE 220 MG CAPSULE GT SCH (08:19)
[2022-09-02] MEDS: [UNRECOGNIZED DRUG - OTHER] TP SCH ×2 (08:19→20:35)
[2022-09-02] MEDS: RIVAROXABAN 10 MG TABLET PO SCH (08:19)
[2022-09-02] MEDS: METOLAZONE 2.5 MG TABLET GT SCH (08:19)
[2022-09-02] MEDS: Z GUARD REMEDY 4 OZ OINT TP SCH ×2 (08:19→20:35)
[2022-09-02] MEDS: ASCORBIC ACID 500 MG TABLET GT SCH (08:19)
[2022-09-02] MEDS: NEOMY SULF/BACITRAC ZN/POLY 15 GM TUBE TP SCH ×2 (08:19→20:34)
[2022-09-02] MEDS: COLLAGENASE 30 GM TUBE TP SCH ×2 (08:20→20:35)
[2022-09-02] MEDS: VITAMINS A AND D 56.7 GM TUBE TP SCH ×4 (08:20→20:35)
[2022-09-02 09:00] VITALS: BP 123/68
--- NOTE | 2022-09-02 09:01 | NUR ---
RT Pt received on ordered vent setting AC 12 400 +5 25%. Neb Tx is given and tolerated well. Trach tube is patent and secured. Vent plugged into red outlet. Ambu bag and back up trach at bedside. Alarms are set and audible. No SOB or respiratory distress noted at this time. Will continue to monitor.
[2022-09-02] MEDS: HYDROGEN PEROXIDE 480 ML BOTTLE TP SCH ×2 (09:17→19:43)
--- NOTE | 2022-09-02 12:24 | NUR ---
Received radiology report on cholangiogram, results were reported to Megha Shirley FINANCIAL SERVICE REPRESENTATIVE, per FINANCIAL SERVICE REPRESENTATIVE she will remove drain on 09/03/22.
[2022-09-02 13:00] VITALS: BP 121/58
--- NOTE | 2022-09-02 14:28 | NUR ---
Seen and examined by Samara Briceno, podiatry care done, no new orders.
[2022-09-02 16:02] VITALS: BP 131/59
--- NOTE | 2022-09-02 16:10 | NUR ---
Resident afebrile. Palacios catheter intact and patent draining clear, light yellow urine, no sediments noted. Biliary drain draining dark brown color (10ml), drain site is clean and intact, no signs of infection. Sacrococcyx pressure wound with slough, no foul odor, small amount of bleeding noted. With white, thin small amount tracheal secretions. Vital signs Blood pressure-123/68, heart rate 71, Temperature 98.0 F (Oral), oxygen saturation level 99%. Will continue to monitor.
--- NOTE | 2022-09-02 17:35 | NUR ---
Seen and examined by JAMA Fuchs, no new order given.
[2022-09-02 19:38] VITALS: BP 140/86
[2022-09-02] MEDS: ATORVASTATIN 40 MG TABLET GT SCH (21:17)
[2022-09-02] MEDS: INSULIN GLARGINE, 100 UNIT/ML CARTRIDGE SQ SCH (21:18)
[2022-09-03] MEDS: INSULIN REGULAR, HUMAN 100 UNIT/ML 3 ML VIAL SQ PRN ×4 (00:10→18:14)
[2022-09-03] MEDS: BLOOD SUGAR DIAGNOSTIC 1 EACH STRIP IN SCH ×4 (00:10→18:12)
[2022-09-03] MEDS: PROSOURCE / PROSTAT (PYXIS) 30 ML UDC GT SCH ×4 (00:10→17:31)
[2022-09-03 00:18] VITALS: BP 110/51
[2022-09-03] MEDS: ALBUTEROL FS 2.5 MG/0.5 ML VIAL.NEB NEB SCH ×4 (01:29→20:08)
[2022-09-03] MEDS: GLUCERNA 1.2 1,000 ML BOTTLE GT SCH (02:20)
[2022-09-03] MEDS: LEVOTHYROXINE SODIUM 75 MCG TABLET PO SCH (05:36)
[2022-09-03 07:20] VITALS: BP 123/95
[2022-09-03] MEDS: CARVEDILOL 6.25 MG TABLET GT SCH ×2 (08:07→21:22)
[2022-09-03] MEDS: BUMETANIDE (1 MG) 1 MG TABLET GT SCH (08:07)
[2022-09-03] MEDS: AMANTADINE SUSP 50 MG/5 ML UDC GT SCH (08:09)
[2022-09-03] MEDS: POTASSIUM CHLORIDE 20 MEQ POWDER PACKET GT SCH ×2 (08:09→17:31)
[2022-09-03] MEDS: MODAFINIL 100 MG TABLET GT SCH (08:09)
[2022-09-03] MEDS: METOCLOPRAMIDE HCL 10 MG/10 ML UDC GT SCH ×2 (08:09→21:23)
[2022-09-03] MEDS: PANTOPRAZOLE 40 MG/PACK PACK GT SCH ×2 (08:09→21:23)
[2022-09-03] MEDS: MULTIVIT W/MINERALS 1 TAB TABLET GT SCH (08:09)
[2022-09-03] MEDS: ACIDOPHILUS/BULGARICUS 1 EACH TAB.CHEW GT SCH ×2 (08:09→21:23)
[2022-09-03] MEDS: LACOSAMIDE ORAL SOLN 50 MG/5 ML UDC GT SCH ×2 (08:10→21:23)
[2022-09-03] MEDS: ASCORBIC ACID 500 MG TABLET GT SCH (08:10)
[2022-09-03] MEDS: METOLAZONE 2.5 MG TABLET GT SCH (08:11)
[2022-09-03] MEDS: ZINC SULFATE 220 MG CAPSULE GT SCH (08:12)
[2022-09-03] MEDS: RIVAROXABAN 10 MG TABLET PO SCH (08:12)
[2022-09-03] MEDS: HYDROGEN PEROXIDE 480 ML BOTTLE TP SCH ×2 (09:28→21:23)
[2022-09-03] MEDS: ACETAMINOPHEN 650 MG/20 ML UDC- SA PATIENTS-PAIN ONLY GT SCH (10:00)
[2022-09-03] MEDS: NEOMY SULF/BACITRAC ZN/POLY 15 GM TUBE TP SCH ×2 (10:30→21:23)
[2022-09-03] MEDS: COLLAGENASE 30 GM TUBE TP SCH ×2 (10:30→21:24)
[2022-09-03] MEDS: Z GUARD REMEDY 4 OZ OINT TP SCH ×2 (10:30→21:24)
[2022-09-03] MEDS: DAKINS QUARTER STRENGTH (0.125%) 480 ML BOTTLE TOP SCH ×2 (10:30→21:23)
[2022-09-03] MEDS: [UNRECOGNIZED DRUG - OTHER] TP SCH ×2 (10:30→21:23)
[2022-09-03] MEDS: VITAMINS A AND D 56.7 GM TUBE TP SCH ×4 (10:30→21:24)
--- NOTE | 2022-09-03 10:45 | NUR ---
Seen and examined by JAMA Shirley, biliary drain was discontinued at bedside, tolerated well, no bleeding noted, pressure dressing applied. Will continue to monitor.
[2022-09-03 11:53] VITALS: BP 138/73
--- NOTE | 2022-09-03 16:38 | NUR ---
Facility Update: SUNDAY called the pt.'s son, Nagi [phone] and call went to voicemail. W left voicemail to Shantanu stating that, "Please note that a [employer] employee tested positive for COVID-19 over the weekend. SO continues to following [facility] of Public Healths infection control guidelines. SO will initiate response testing and screening for symptoms of Residents and staff. All visitation Guidelines remain the same." SUNDAY attached visitation guidelines. SUNDAY left unit number so Shantanu may call if he has any questions.
--- NOTE | 2022-09-03 18:00 | NUR ---
Resident afebrile. Palacios catheter intact and patent draining clear, light yellow urine, no sediments noted. S/P biliary drain removal, pressure dressing dry, clean and intact. Sacrococcyx pressure wound with slough, no foul odor, small amount of bleeding noted. With white, thin small amount tracheal secretions. Vital signs BP- 138/73, HR- 64, RR- 14, Temp. 97.5F, O2 sat. 100%. Will continue to monitor.
[2022-09-03 19:45] VITALS: BP 155/69
[2022-09-03] MEDS: ATORVASTATIN 40 MG TABLET GT SCH (21:24)
[2022-09-03] MEDS: INSULIN GLARGINE, 100 UNIT/ML CARTRIDGE SQ SCH (21:24)
--- NOTE | 2022-09-03 22:58 | NUR ---
RT Received pt on ordered vent settings. Tolerating well with an SPO2 of 100% on initial assessment. No respiratory distress or SOB noted during assessment. Q6 nebulizer Tx given and tolerated with no adverse reaction. Suctioned x2. Trach is patent and secured. Emergency trach and ambu-bag are bedside. Vent is plugged into red outlet. Alarms are on and audible.
[2022-09-04] MEDS: BLOOD SUGAR DIAGNOSTIC 1 EACH STRIP IN SCH ×5 (00:15→23:48)
[2022-09-04] MEDS: PROSOURCE / PROSTAT (PYXIS) 30 ML UDC GT SCH ×5 (00:15→23:47)
[2022-09-04] MEDS: INSULIN REGULAR, HUMAN 100 UNIT/ML 3 ML VIAL SQ PRN ×5 (00:17→23:49)
[2022-09-04 00:54] VITALS: BP 101/70
[2022-09-04] MEDS: ALBUTEROL FS 2.5 MG/0.5 ML VIAL.NEB NEB SCH ×4 (02:03→19:40)
[2022-09-04] MEDS: LEVOTHYROXINE SODIUM 75 MCG TABLET PO SCH (05:42)
[2022-09-04 07:06] VITALS: BP 112/50
[2022-09-04] MEDS: BUMETANIDE (1 MG) 1 MG TABLET GT SCH (08:55)
[2022-09-04] MEDS: CARVEDILOL 6.25 MG TABLET GT SCH ×2 (08:56→21:39)
[2022-09-04] MEDS: ACIDOPHILUS/BULGARICUS 1 EACH TAB.CHEW GT SCH ×2 (08:56→21:39)
[2022-09-04] MEDS: Z GUARD REMEDY 4 OZ OINT TP SCH ×2 (09:00→21:39)
[2022-09-04] MEDS: NEOMY SULF/BACITRAC ZN/POLY 15 GM TUBE TP SCH ×2 (09:00→21:39)
[2022-09-04] MEDS: COLLAGENASE 30 GM TUBE TP SCH ×2 (09:00→21:39)
[2022-09-04] MEDS: [UNRECOGNIZED DRUG - OTHER] TP SCH ×2 (09:00→21:39)
[2022-09-04] MEDS: DAKINS QUARTER STRENGTH (0.125%) 480 ML BOTTLE TOP SCH ×2 (09:00→21:39)
[2022-09-04] MEDS: VITAMINS A AND D 56.7 GM TUBE TP SCH ×4 (09:00→21:40)
[2022-09-04] MEDS: PANTOPRAZOLE 40 MG/PACK PACK GT SCH ×2 (09:01→21:39)
[2022-09-04] MEDS: METOCLOPRAMIDE HCL 10 MG/10 ML UDC GT SCH ×2 (09:02→21:39)
[2022-09-04] MEDS: MODAFINIL 100 MG TABLET GT SCH (09:02)
[2022-09-04] MEDS: MULTIVIT W/MINERALS 1 TAB TABLET GT SCH (09:02)
[2022-09-04] MEDS: AMANTADINE SUSP 50 MG/5 ML UDC GT SCH (09:02)
[2022-09-04] MEDS: ACETAMINOPHEN 650 MG/20 ML UDC- SA PATIENTS-PAIN ONLY GT SCH (09:03)
[2022-09-04] MEDS: ASCORBIC ACID 500 MG TABLET GT SCH (09:03)
[2022-09-04] MEDS: LACOSAMIDE ORAL SOLN 50 MG/5 ML UDC GT SCH ×2 (09:03→21:55)
[2022-09-04] MEDS: RIVAROXABAN 10 MG TABLET PO SCH (09:04)
[2022-09-04] MEDS: METOLAZONE 2.5 MG TABLET GT SCH (09:04)
[2022-09-04] MEDS: ZINC SULFATE 220 MG CAPSULE GT SCH (09:04)
[2022-09-04] MEDS: POTASSIUM CHLORIDE 20 MEQ POWDER PACKET GT SCH ×2 (09:05→17:14)
[2022-09-04] MEDS: HYDROGEN PEROXIDE 480 ML BOTTLE TP SCH ×2 (09:08→21:27)
[2022-09-04 11:16] VITALS: BP 145/65
--- NOTE | 2022-09-04 12:32 | NUR ---
Notified Dr. Moreno that pt's GT flushing on hold since 08/28/22 d/t Na of 131. Order obtained for repeat BMP in AM. Order noted and carried out.
--- NOTE | 2022-09-04 18:15 | NUR ---
Pt had biliary drain removal yesterday. No drainage noted on pressure dressing. Pressure dressing dry and intact. Palacios catheter in place, intact and patent. Urine noted to be light yellow in color, no sediments/ blood noted. Sacrococcyx pressure wound noted with slough, minimal bleeding from site. No foul odor, pus noted. Treatment rendered as ordered, area kept clean and dry. Suctioned patient q 2 hrs and PRN. Minimal amount of thin, white secretions noted. Pt afebrile, VS as follows: BP 145/65, HR 65, RR 14, Temp 97.8. All pt's needs met and attended, pt kept comfortable in bed.
[2022-09-04 19:27] VITALS: BP 155/63
[2022-09-04] MEDS: ATORVASTATIN 40 MG TABLET GT SCH (21:40)
[2022-09-04] MEDS: GLUCERNA 1.2 1,000 ML BOTTLE GT SCH (21:40)
[2022-09-04] MEDS: INSULIN GLARGINE, 100 UNIT/ML CARTRIDGE SQ SCH (21:41)
[2022-09-04 23:58] VITALS: BP 143/71
[2022-09-05] MEDS: ALBUTEROL FS 2.5 MG/0.5 ML VIAL.NEB NEB SCH ×4 (01:24→20:25)
[2022-09-05] MEDS: LEVOTHYROXINE SODIUM 75 MCG TABLET PO SCH (05:38)
[2022-09-05] MEDS: BLOOD SUGAR DIAGNOSTIC 1 EACH STRIP IN SCH ×3 (05:38→17:37)
[2022-09-05] MEDS: PROSOURCE / PROSTAT (PYXIS) 30 ML UDC GT SCH ×3 (05:38→16:00)
[2022-09-05] MEDS: INSULIN REGULAR, HUMAN 100 UNIT/ML 3 ML VIAL SQ PRN ×3 (05:41→17:42)
[2022-09-05 07:52] LABS: CALCIUM, SERUM 9.2 mg/dL (8.5-10.1); CREATININE 0.7 mg/dL (0.6-1.3); POTASSIUM 4.1 mmol/L (3.5-5.1)
[2022-09-05 08:07] VITALS: BP 164/86
[2022-09-05] MEDS: PANTOPRAZOLE 40 MG/PACK PACK GT SCH ×2 (08:09→20:14)
[2022-09-05] MEDS: MODAFINIL 100 MG TABLET GT SCH (08:10)
[2022-09-05] MEDS: POTASSIUM CHLORIDE 20 MEQ POWDER PACKET GT SCH ×2 (08:10→16:00)
[2022-09-05] MEDS: METOLAZONE 2.5 MG TABLET GT SCH (08:10)
[2022-09-05] MEDS: METOCLOPRAMIDE HCL 10 MG/10 ML UDC GT SCH ×2 (08:11→20:14)
[2022-09-05] MEDS: BUMETANIDE (1 MG) 1 MG TABLET GT SCH (08:11)
[2022-09-05] MEDS: CARVEDILOL 6.25 MG TABLET GT SCH ×2 (08:11→20:14)
[2022-09-05] MEDS: ASCORBIC ACID 500 MG TABLET GT SCH (08:13)
[2022-09-05] MEDS: MULTIVIT W/MINERALS 1 TAB TABLET GT SCH (08:13)
[2022-09-05] MEDS: DAKINS QUARTER STRENGTH (0.125%) 480 ML BOTTLE TOP SCH ×2 (08:14→20:14)
[2022-09-05] MEDS: COLLAGENASE 30 GM TUBE TP SCH ×2 (08:14→20:14)
[2022-09-05] MEDS: [UNRECOGNIZED DRUG - OTHER] TP SCH ×2 (08:14→20:14)
[2022-09-05] MEDS: Z GUARD REMEDY 4 OZ OINT TP SCH ×2 (08:14→20:14)
[2022-09-05] MEDS: NEOMY SULF/BACITRAC ZN/POLY 15 GM TUBE TP SCH ×2 (08:14→20:14)
[2022-09-05] MEDS: HYDROGEN PEROXIDE 480 ML BOTTLE TP SCH ×3 (08:14→20:25)
[2022-09-05] MEDS: VITAMINS A AND D 56.7 GM TUBE TP SCH ×4 (08:15→20:14)
[2022-09-05] MEDS: ZINC SULFATE 220 MG CAPSULE GT SCH (08:18)
[2022-09-05] MEDS: ACETAMINOPHEN 650 MG/20 ML UDC- SA PATIENTS-PAIN ONLY GT SCH (08:19)
[2022-09-05] MEDS: ACIDOPHILUS/BULGARICUS 1 EACH TAB.CHEW GT SCH ×2 (08:20→20:14)
[2022-09-05] MEDS: AMANTADINE SUSP 50 MG/5 ML UDC GT SCH (08:22)
[2022-09-05] MEDS: RIVAROXABAN 10 MG TABLET PO SCH (08:25)
--- NOTE | 2022-09-05 08:27 | NUR ---
BMP result relayed to Dr. Moreno, no new order given. Will continue to monitor.
--- NOTE | 2022-09-05 10:28 | NUR ---
RN NOTES 0900 AM VIMPAT NOT AVAILABLE IN OMNICELL. CALLED PHARMACY AROUND [phone]. HELENA STATED HE KNOWS THAT THIS MEDICATION NEEDS TO BE RESTOCK IN OMNICELL. IT IS 1028, STILL OUT OF STOCK.
[2022-09-05] MEDS: LACOSAMIDE ORAL SOLN 50 MG/5 ML UDC GT SCH ×2 (11:34→20:14)
[2022-09-05] MEDS: GLUCERNA 1.2 1,000 ML BOTTLE GT SCH (15:14)
[2022-09-05 20:51] VITALS: BP 149/71
[2022-09-05] MEDS: ATORVASTATIN 40 MG TABLET GT SCH (21:43)
[2022-09-05] MEDS: INSULIN GLARGINE, 100 UNIT/ML CARTRIDGE SQ SCH (21:46)
[2022-09-06] MEDS: PROSOURCE / PROSTAT (PYXIS) 30 ML UDC GT SCH ×4 (00:13→17:17)
[2022-09-06] MEDS: BLOOD SUGAR DIAGNOSTIC 1 EACH STRIP IN SCH ×4 (00:13→17:28)
[2022-09-06] MEDS: ALBUTEROL FS 2.5 MG/0.5 ML VIAL.NEB NEB SCH ×4 (01:00→20:17)
[2022-09-06] MEDS: LEVOTHYROXINE SODIUM 75 MCG TABLET PO SCH (05:03)
[2022-09-06 07:13] VITALS: BP 114/49
[2022-09-06] MEDS: HYDROGEN PEROXIDE 480 ML BOTTLE TP SCH ×2 (09:14→21:00)
[2022-09-06] MEDS: BUMETANIDE (1 MG) 1 MG TABLET GT SCH (09:51)
[2022-09-06] MEDS: ASCORBIC ACID 500 MG TABLET GT SCH (09:52)
[2022-09-06] MEDS: ACETAMINOPHEN 650 MG/20 ML UDC- SA PATIENTS-PAIN ONLY GT SCH (09:52)
[2022-09-06] MEDS: CARVEDILOL 6.25 MG TABLET GT SCH ×2 (09:52→20:20)
[2022-09-06] MEDS: POTASSIUM CHLORIDE 20 MEQ POWDER PACKET GT SCH ×2 (09:52→17:17)
[2022-09-06] MEDS: LACOSAMIDE ORAL SOLN 50 MG/5 ML UDC GT SCH ×2 (09:52→20:20)
[2022-09-06] MEDS: ACIDOPHILUS/BULGARICUS 1 EACH TAB.CHEW GT SCH ×2 (09:52→20:20)
[2022-09-06] MEDS: MODAFINIL 100 MG TABLET GT SCH (09:52)
[2022-09-06] MEDS: ZINC SULFATE 220 MG CAPSULE GT SCH (09:52)
[2022-09-06] MEDS: METOLAZONE 2.5 MG TABLET GT SCH (09:52)
[2022-09-06] MEDS: MULTIVIT W/MINERALS 1 TAB TABLET GT SCH (09:52)
[2022-09-06] MEDS: AMANTADINE SUSP 50 MG/5 ML UDC GT SCH (09:52)
[2022-09-06] MEDS: METOCLOPRAMIDE HCL 10 MG/10 ML UDC GT SCH ×2 (09:52→20:20)
[2022-09-06] MEDS: PANTOPRAZOLE 40 MG/PACK PACK GT SCH ×2 (09:52→20:20)
[2022-09-06] MEDS: RIVAROXABAN 10 MG TABLET PO SCH (09:53)
[2022-09-06] MEDS: VITAMINS A AND D 56.7 GM TUBE TP SCH ×4 (09:53→20:21)
[2022-09-06] MEDS: [UNRECOGNIZED DRUG - OTHER] TP SCH ×2 (10:45→20:21)
[2022-09-06] MEDS: Z GUARD REMEDY 4 OZ OINT TP SCH ×2 (10:45→20:21)
[2022-09-06] MEDS: COLLAGENASE 30 GM TUBE TP SCH ×2 (10:48→20:21)
[2022-09-06] MEDS: NEOMY SULF/BACITRAC ZN/POLY 15 GM TUBE TP SCH (10:48)
[2022-09-06] MEDS: DAKINS QUARTER STRENGTH (0.125%) 480 ML BOTTLE TOP SCH ×2 (10:48→20:20)
[2022-09-06] MEDS: INSULIN REGULAR, HUMAN 100 UNIT/ML 3 ML VIAL SQ PRN ×2 (11:11→17:29)
[2022-09-06 11:39] VITALS: BP 112/54
[2022-09-06] MEDS: GLUCERNA 1.2 1,000 ML BOTTLE GT SCH (13:27)
[2022-09-06 18:41] VITALS: BP 151/59
[2022-09-06 20:00] VITALS: BP 148/73
[2022-09-06] MEDS: ATORVASTATIN 40 MG TABLET GT SCH (21:20)
[2022-09-06] MEDS: INSULIN GLARGINE, 100 UNIT/ML CARTRIDGE SQ SCH (21:21)
[2022-09-07] MEDS: ALBUTEROL FS 2.5 MG/0.5 ML VIAL.NEB NEB SCH ×4 (01:41→20:22)
[2022-09-07] MEDS: PROSOURCE / PROSTAT (PYXIS) 30 ML UDC GT SCH ×5 (05:02→23:05)
[2022-09-07] MEDS: BLOOD SUGAR DIAGNOSTIC 1 EACH STRIP IN SCH ×5 (05:02→23:13)
[2022-09-07] MEDS: LEVOTHYROXINE SODIUM 75 MCG TABLET PO SCH (05:02)
[2022-09-07 07:08] VITALS: BP 158/71
[2022-09-07] MEDS: HYDROGEN PEROXIDE 480 ML BOTTLE TP SCH ×2 (09:04→20:40)
[2022-09-07] MEDS: PANTOPRAZOLE 40 MG/PACK PACK GT SCH ×2 (09:55→21:19)
[2022-09-07] MEDS: CARVEDILOL 6.25 MG TABLET GT SCH ×2 (09:55→21:19)
[2022-09-07] MEDS: MULTIVIT W/MINERALS 1 TAB TABLET GT SCH (09:55)
[2022-09-07] MEDS: BUMETANIDE (1 MG) 1 MG TABLET GT SCH (09:55)
[2022-09-07] MEDS: POTASSIUM CHLORIDE 20 MEQ POWDER PACKET GT SCH ×2 (09:55→16:27)
[2022-09-07] MEDS: AMANTADINE SUSP 50 MG/5 ML UDC GT SCH (09:55)
[2022-09-07] MEDS: ASCORBIC ACID 500 MG TABLET GT SCH (09:55)
[2022-09-07] MEDS: LACOSAMIDE ORAL SOLN 50 MG/5 ML UDC GT SCH ×2 (09:55→21:19)
[2022-09-07] MEDS: METOLAZONE 2.5 MG TABLET GT SCH (09:55)
[2022-09-07] MEDS: ACETAMINOPHEN 650 MG/20 ML UDC- SA PATIENTS-PAIN ONLY GT SCH (09:55)
[2022-09-07] MEDS: MODAFINIL 100 MG TABLET GT SCH (09:55)
[2022-09-07] MEDS: ACIDOPHILUS/BULGARICUS 1 EACH TAB.CHEW GT SCH ×2 (09:55→21:19)
[2022-09-07] MEDS: METOCLOPRAMIDE HCL 10 MG/10 ML UDC GT SCH ×2 (09:55→21:19)
[2022-09-07] MEDS: COLLAGENASE 30 GM TUBE TP SCH ×2 (09:56→21:18)
[2022-09-07] MEDS: RIVAROXABAN 10 MG TABLET PO SCH (09:56)
[2022-09-07] MEDS: Z GUARD REMEDY 4 OZ OINT TP SCH ×2 (09:56→21:18)
[2022-09-07] MEDS: [UNRECOGNIZED DRUG - OTHER] TP SCH ×2 (09:56→21:19)
[2022-09-07] MEDS: ZINC SULFATE 220 MG CAPSULE GT SCH (09:56)
[2022-09-07] MEDS: DAKINS QUARTER STRENGTH (0.125%) 480 ML BOTTLE TOP SCH ×2 (09:56→21:19)
[2022-09-07] MEDS: VITAMINS A AND D 56.7 GM TUBE TP SCH ×4 (09:57→21:18)
[2022-09-07] MEDS: INSULIN REGULAR, HUMAN 100 UNIT/ML 3 ML VIAL SQ PRN ×3 (11:19→22:30)
[2022-09-07 11:56] VITALS: BP 115/63
[2022-09-07] MEDS: GLUCERNA 1.2 1,000 ML BOTTLE GT SCH (15:38)
[2022-09-07 15:54] VITALS: BP 150/61
[2022-09-07 20:07] VITALS: BP 156/90
[2022-09-07] MEDS: ATORVASTATIN 40 MG TABLET GT SCH (21:20)
[2022-09-07] MEDS: INSULIN GLARGINE, 100 UNIT/ML CARTRIDGE SQ SCH (22:26)
[2022-09-08] MEDS: ALBUTEROL FS 2.5 MG/0.5 ML VIAL.NEB NEB SCH ×4 (01:15→19:52)
[2022-09-08] MEDS: PROSOURCE / PROSTAT (PYXIS) 30 ML UDC GT SCH ×3 (05:26→17:45)
[2022-09-08] MEDS: LEVOTHYROXINE SODIUM 75 MCG TABLET PO SCH (05:26)
[2022-09-08] MEDS: BLOOD SUGAR DIAGNOSTIC 1 EACH STRIP IN SCH ×3 (05:51→17:45)
[2022-09-08] MEDS: INSULIN REGULAR, HUMAN 100 UNIT/ML 3 ML VIAL SQ PRN ×3 (05:52→17:46)
[2022-09-08] MEDS: GLUCERNA 1.2 1,000 ML BOTTLE GT SCH (07:11)
[2022-09-08 07:15] VITALS: BP 134/69
[2022-09-08] MEDS: MODAFINIL 100 MG TABLET GT SCH (08:10)
[2022-09-08] MEDS: CARVEDILOL 6.25 MG TABLET GT SCH ×2 (08:10→21:46)
[2022-09-08] MEDS: ACIDOPHILUS/BULGARICUS 1 EACH TAB.CHEW GT SCH ×2 (08:10→21:46)
[2022-09-08] MEDS: AMANTADINE SUSP 50 MG/5 ML UDC GT SCH (08:10)
[2022-09-08] MEDS: PANTOPRAZOLE 40 MG/PACK PACK GT SCH ×2 (08:10→21:47)
[2022-09-08] MEDS: BUMETANIDE (1 MG) 1 MG TABLET GT SCH (08:10)
[2022-09-08] MEDS: METOCLOPRAMIDE HCL 10 MG/10 ML UDC GT SCH ×2 (08:10→21:47)
[2022-09-08] MEDS: POTASSIUM CHLORIDE 20 MEQ POWDER PACKET GT SCH ×2 (08:10→16:30)
[2022-09-08] MEDS: RIVAROXABAN 10 MG TABLET PO SCH (08:11)
[2022-09-08] MEDS: ACETAMINOPHEN 650 MG/20 ML UDC- SA PATIENTS-PAIN ONLY GT SCH (08:11)
[2022-09-08] MEDS: MULTIVIT W/MINERALS 1 TAB TABLET GT SCH (08:11)
[2022-09-08] MEDS: LACOSAMIDE ORAL SOLN 50 MG/5 ML UDC GT SCH ×2 (08:11→21:47)
[2022-09-08] MEDS: ZINC SULFATE 220 MG CAPSULE GT SCH (08:11)
[2022-09-08] MEDS: ASCORBIC ACID 500 MG TABLET GT SCH (08:11)
[2022-09-08] MEDS: METOLAZONE 2.5 MG TABLET GT SCH (08:11)
[2022-09-08] MEDS: HYDROGEN PEROXIDE 480 ML BOTTLE TP SCH ×2 (09:25→19:53)
[2022-09-08] MEDS: [UNRECOGNIZED DRUG - OTHER] TP SCH ×2 (09:47→21:47)
[2022-09-08] MEDS: COLLAGENASE 30 GM TUBE TP SCH ×2 (09:47→21:47)
[2022-09-08] MEDS: VITAMINS A AND D 56.7 GM TUBE TP SCH ×4 (09:47→21:48)
[2022-09-08] MEDS: DAKINS QUARTER STRENGTH (0.125%) 480 ML BOTTLE TOP SCH ×2 (09:47→21:47)
[2022-09-08] MEDS: Z GUARD REMEDY 4 OZ OINT TP SCH ×2 (09:47→21:47)
[2022-09-08 11:35] VITALS: BP 129/72
--- NOTE | 2022-09-08 12:05 | NUR ---
Family Invite to IDT: SUNDAY called the pt.'s son, Nagi [phone] and invited him to participate in IDT meeting this Tuesday between 12:30pm-1:30pm. Nagi stated that he would like to participate. SW will call him for phone conference participation.
--- NOTE | 2022-09-08 12:47 | NUR ---
called Tana (pt daughter) to re-offer the COVID-19 Bivalent Booster for pt; no answer, left a message.endorsed
[2022-09-08 16:46] VITALS: BP 129/69
[2022-09-08 19:43] VITALS: BP 145/60
[2022-09-08] MEDS: ATORVASTATIN 40 MG TABLET GT SCH (21:48)
[2022-09-08] MEDS: INSULIN GLARGINE, 100 UNIT/ML CARTRIDGE SQ SCH (22:01)
[2022-09-09] VITALS (7 sets, daily range): BP systolic 124–142; BP diastolic 52–72
[2022-09-09] MEDS: PROSOURCE / PROSTAT (PYXIS) 30 ML UDC GT SCH ×5 (00:38→23:16)
[2022-09-09] MEDS: BLOOD SUGAR DIAGNOSTIC 1 EACH STRIP IN SCH ×5 (00:38→23:16)
[2022-09-09] MEDS: INSULIN REGULAR, HUMAN 100 UNIT/ML 3 ML VIAL SQ PRN ×5 (00:40→23:16)
[2022-09-09] MEDS: ALBUTEROL FS 2.5 MG/0.5 ML VIAL.NEB NEB SCH ×4 (01:42→19:46)
[2022-09-09] MEDS: LEVOTHYROXINE SODIUM 75 MCG TABLET PO SCH (05:27)
[2022-09-09] MEDS: GLUCERNA 1.2 1,000 ML BOTTLE GT SCH (05:27)
[2022-09-09] MEDS: MULTIVIT W/MINERALS 1 TAB TABLET GT SCH (08:10)
[2022-09-09] MEDS: BUMETANIDE (1 MG) 1 MG TABLET GT SCH (08:10)
[2022-09-09] MEDS: ACIDOPHILUS/BULGARICUS 1 EACH TAB.CHEW GT SCH ×2 (08:10→20:35)
[2022-09-09] MEDS: MODAFINIL 100 MG TABLET GT SCH (08:10)
[2022-09-09] MEDS: METOCLOPRAMIDE HCL 10 MG/10 ML UDC GT SCH ×2 (08:10→20:35)
[2022-09-09] MEDS: PANTOPRAZOLE 40 MG/PACK PACK GT SCH ×2 (08:10→20:35)
[2022-09-09] MEDS: POTASSIUM CHLORIDE 20 MEQ POWDER PACKET GT SCH ×2 (08:10→16:33)
[2022-09-09] MEDS: AMANTADINE SUSP 50 MG/5 ML UDC GT SCH (08:10)
[2022-09-09] MEDS: METOLAZONE 2.5 MG TABLET GT SCH (08:11)
[2022-09-09] MEDS: RIVAROXABAN 10 MG TABLET PO SCH (08:11)
[2022-09-09] MEDS: LACOSAMIDE ORAL SOLN 50 MG/5 ML UDC GT SCH ×2 (08:11→20:35)
[2022-09-09] MEDS: ZINC SULFATE 220 MG CAPSULE GT SCH (08:11)
[2022-09-09] MEDS: ACETAMINOPHEN 650 MG/20 ML UDC- SA PATIENTS-PAIN ONLY GT SCH (08:11)
[2022-09-09] MEDS: ASCORBIC ACID 500 MG TABLET GT SCH (08:11)
[2022-09-09] MEDS: DAKINS QUARTER STRENGTH (0.125%) 480 ML BOTTLE TOP SCH ×2 (08:11→20:35)
[2022-09-09] MEDS: COLLAGENASE 30 GM TUBE TP SCH ×2 (08:12→20:36)
[2022-09-09] MEDS: Z GUARD REMEDY 4 OZ OINT TP SCH ×2 (08:12→20:35)
[2022-09-09] MEDS: VITAMINS A AND D 56.7 GM TUBE TP SCH ×4 (08:12→20:36)
[2022-09-09] MEDS: [UNRECOGNIZED DRUG - OTHER] TP SCH ×2 (08:12→20:35)
[2022-09-09] MEDS: CARVEDILOL 6.25 MG TABLET GT SCH ×2 (08:29→20:35)
[2022-09-09] MEDS: HYDROGEN PEROXIDE 480 ML BOTTLE TP SCH ×2 (09:07→19:46)
[2022-09-09] MEDS: ACETAMINOPHEN 650 MG/20.3 ML UDC GT PRN (20:36)
[2022-09-09] MEDS: INSULIN GLARGINE, 100 UNIT/ML CARTRIDGE SQ SCH (21:01)
[2022-09-09] MEDS: ATORVASTATIN 40 MG TABLET GT SCH (21:01)
[2022-09-10 00:19] VITALS: BP 113/51
[2022-09-10] MEDS: ALBUTEROL FS 2.5 MG/0.5 ML VIAL.NEB NEB SCH ×4 (01:39→18:45)
[2022-09-10] MEDS: LEVOTHYROXINE SODIUM 75 MCG TABLET PO SCH (05:23)
[2022-09-10] MEDS: PROSOURCE / PROSTAT (PYXIS) 30 ML UDC GT SCH ×4 (05:23→23:12)
[2022-09-10] MEDS: GLUCERNA 1.2 1,000 ML BOTTLE GT SCH ×2 (05:32→23:12)
[2022-09-10 05:33] VITALS: BP 124/58
[2022-09-10] MEDS: INSULIN REGULAR, HUMAN 100 UNIT/ML 3 ML VIAL SQ PRN ×4 (05:44→23:13)
[2022-09-10] MEDS: BLOOD SUGAR DIAGNOSTIC 1 EACH STRIP IN SCH ×4 (05:44→23:12)
[2022-09-10 07:37] VITALS: BP 153/73
[2022-09-10] MEDS: LACOSAMIDE ORAL SOLN 50 MG/5 ML UDC GT SCH ×2 (08:34→20:30)
[2022-09-10] MEDS: METOCLOPRAMIDE HCL 10 MG/10 ML UDC GT SCH ×2 (08:34→20:30)
[2022-09-10] MEDS: AMANTADINE SUSP 50 MG/5 ML UDC GT SCH (08:34)
[2022-09-10] MEDS: METOLAZONE 2.5 MG TABLET GT SCH (08:34)
[2022-09-10] MEDS: MODAFINIL 100 MG TABLET GT SCH (08:39)
[2022-09-10] MEDS: POTASSIUM CHLORIDE 20 MEQ POWDER PACKET GT SCH ×2 (08:39→17:04)
[2022-09-10] MEDS: ACIDOPHILUS/BULGARICUS 1 EACH TAB.CHEW GT SCH ×2 (08:39→20:30)
[2022-09-10] MEDS: CARVEDILOL 6.25 MG TABLET GT SCH ×2 (08:39→20:30)
[2022-09-10] MEDS: PANTOPRAZOLE 40 MG/PACK PACK GT SCH ×2 (08:39→20:30)
[2022-09-10] MEDS: BUMETANIDE (1 MG) 1 MG TABLET GT SCH (08:39)
[2022-09-10] MEDS: MULTIVIT W/MINERALS 1 TAB TABLET GT SCH (08:40)
[2022-09-10] MEDS: Z GUARD REMEDY 4 OZ OINT TP SCH ×2 (08:40→20:30)
[2022-09-10] MEDS: DAKINS QUARTER STRENGTH (0.125%) 480 ML BOTTLE TOP SCH ×2 (08:40→20:30)
[2022-09-10] MEDS: HYDROGEN PEROXIDE 480 ML BOTTLE TP SCH ×2 (08:40→20:31)
[2022-09-10] MEDS: ACETAMINOPHEN 650 MG/20 ML UDC- SA PATIENTS-PAIN ONLY GT SCH (08:40)
[2022-09-10] MEDS: [UNRECOGNIZED DRUG - OTHER] TP SCH ×2 (08:40→20:30)
[2022-09-10] MEDS: ZINC SULFATE 220 MG CAPSULE GT SCH (08:40)
[2022-09-10] MEDS: ASCORBIC ACID 500 MG TABLET GT SCH (08:40)
[2022-09-10] MEDS: COLLAGENASE 30 GM TUBE TP SCH ×2 (08:41→20:30)
[2022-09-10] MEDS: VITAMINS A AND D 56.7 GM TUBE TP SCH ×4 (08:41→20:30)
[2022-09-10] MEDS: RIVAROXABAN 10 MG TABLET PO SCH (08:42)
[2022-09-10 12:20] VITALS: BP 113/52
--- NOTE | 2022-09-10 12:30 | NUR ---
Interdisciplinary plan of care conference took place today. Family members did not participate in phone conference. Family member was called and no answer, social work professor left a voice mail to call back if further concerns or questions. Dr. Khan and Interdisciplinary team discussed the plan of care in detail. Current orders as well as treatments and medications were reviewed. No recommendations per (IDT).
--- NOTE | 2022-09-10 16:51 | NUR ---
INTERDISCIPLINARY PLAN OF CARE CONFERENCE took place today. The pt.'s son, Shantanu Craft [phone] was called to participate via phone conference. However, call went to voicemail and SW to left message and call back number. Dr. Khan and Interdisciplinary team discussed the plan of care in detail. Current orders as well as treatments and medications were reviewed. No new orders.
[2022-09-10 19:35] VITALS: BP 147/62
[2022-09-10] MEDS: ATORVASTATIN 40 MG TABLET GT SCH (21:01)
[2022-09-10] MEDS: INSULIN GLARGINE, 100 UNIT/ML CARTRIDGE SQ SCH (21:02)
[2022-09-11] VITALS (7 sets, daily range): BP systolic 118–158; BP diastolic 53–76
[2022-09-11] MEDS: ALBUTEROL FS 2.5 MG/0.5 ML VIAL.NEB NEB SCH ×4 (01:04→19:02)
[2022-09-11] MEDS: PROSOURCE / PROSTAT (PYXIS) 30 ML UDC GT SCH ×4 (05:03→23:04)
[2022-09-11] MEDS: BLOOD SUGAR DIAGNOSTIC 1 EACH STRIP IN SCH ×4 (05:03→23:04)
[2022-09-11] MEDS: LEVOTHYROXINE SODIUM 75 MCG TABLET PO SCH (05:03)
[2022-09-11] MEDS: INSULIN REGULAR, HUMAN 100 UNIT/ML 3 ML VIAL SQ PRN ×4 (05:04→23:05)
[2022-09-11] MEDS: HYDROGEN PEROXIDE 480 ML BOTTLE TP SCH ×2 (09:07→20:22)
[2022-09-11] MEDS: POTASSIUM CHLORIDE 20 MEQ POWDER PACKET GT SCH ×2 (09:53→16:24)
[2022-09-11] MEDS: PANTOPRAZOLE 40 MG/PACK PACK GT SCH ×2 (09:53→20:33)
[2022-09-11] MEDS: CARVEDILOL 6.25 MG TABLET GT SCH ×2 (09:53→20:33)
[2022-09-11] MEDS: METOCLOPRAMIDE HCL 10 MG/10 ML UDC GT SCH ×2 (09:53→20:33)
[2022-09-11] MEDS: MODAFINIL 100 MG TABLET GT SCH (09:53)
[2022-09-11] MEDS: AMANTADINE SUSP 50 MG/5 ML UDC GT SCH (09:53)
[2022-09-11] MEDS: BUMETANIDE (1 MG) 1 MG TABLET GT SCH (09:53)
[2022-09-11] MEDS: MULTIVIT W/MINERALS 1 TAB TABLET GT SCH (09:53)
[2022-09-11] MEDS: ACIDOPHILUS/BULGARICUS 1 EACH TAB.CHEW GT SCH ×2 (09:53→20:33)
[2022-09-11] MEDS: RIVAROXABAN 10 MG TABLET PO SCH (09:54)
[2022-09-11] MEDS: METOLAZONE 2.5 MG TABLET GT SCH (09:54)
[2022-09-11] MEDS: LACOSAMIDE ORAL SOLN 50 MG/5 ML UDC GT SCH ×2 (09:54→20:33)
[2022-09-11] MEDS: ZINC SULFATE 220 MG CAPSULE GT SCH (09:54)
[2022-09-11] MEDS: ACETAMINOPHEN 650 MG/20 ML UDC- SA PATIENTS-PAIN ONLY GT SCH (09:54)
[2022-09-11] MEDS: ASCORBIC ACID 500 MG TABLET GT SCH (09:54)
[2022-09-11] MEDS: VITAMINS A AND D 56.7 GM TUBE TP SCH ×4 (09:55→20:34)
[2022-09-11] MEDS: [UNRECOGNIZED DRUG - OTHER] TP SCH ×2 (09:55→20:34)
[2022-09-11] MEDS: Z GUARD REMEDY 4 OZ OINT TP SCH ×2 (09:55→20:34)
[2022-09-11] MEDS: COLLAGENASE 30 GM TUBE TP SCH ×2 (09:55→20:34)
[2022-09-11] MEDS: DAKINS QUARTER STRENGTH (0.125%) 480 ML BOTTLE TOP SCH ×2 (09:55→20:34)
--- NOTE | 2022-09-11 12:47 | NUR ---
Informed Dr. Moreno about pt's blood sugar results ranging from 166-307 but mostly in the 200's. Order obtained to increase Lantus insulin to 30 units subcutaneously at bedtime. Order noted and carried out.
[2022-09-11] MEDS: INSULIN GLARGINE, 100 UNIT/ML CARTRIDGE SQ SCH (21:00)
[2022-09-11] MEDS: ATORVASTATIN 40 MG TABLET GT SCH (21:00)
[2022-09-11] MEDS: GLUCERNA 1.2 1,000 ML BOTTLE GT SCH (23:04)
[2022-09-12] MEDS: ALBUTEROL FS 2.5 MG/0.5 ML VIAL.NEB NEB SCH ×4 (00:39→20:15)
[2022-09-12] MEDS: PROSOURCE / PROSTAT (PYXIS) 30 ML UDC GT SCH ×3 (05:30→17:19)
[2022-09-12] MEDS: BLOOD SUGAR DIAGNOSTIC 1 EACH STRIP IN SCH ×3 (05:30→17:19)
[2022-09-12] MEDS: INSULIN REGULAR, HUMAN 100 UNIT/ML 3 ML VIAL SQ PRN ×3 (05:31→17:20)
[2022-09-12] MEDS: LEVOTHYROXINE SODIUM 75 MCG TABLET PO SCH (05:31)
--- NOTE | 2022-09-12 06:50 | NUR ---
RN NOTES PATIENT IN BED, AFEBRILE WITH NO S/S OF DISTRESS OBSERVED. NO S/S OF PAIN/DISCOMFORT SEEN. NOTED WITH WHITE SPOTS LIKE ORAL THRUSH ON HER TONGUE AND UPPER PALATE, MADE AWARE WITH ORDER TO START NYSTATIN 178097D ORAL SOLN FOUR TIMES A DAY RECEIVED AND CARRIED OUT. SON NOTIFIED AT BEDSIDE. WILL CONTINUE TO MONITOR.
[2022-09-12 07:48] VITALS: BP 136/64
[2022-09-12] MEDS: POTASSIUM CHLORIDE 20 MEQ POWDER PACKET GT SCH ×2 (08:11→16:56)
[2022-09-12] MEDS: ACIDOPHILUS/BULGARICUS 1 EACH TAB.CHEW GT SCH ×2 (08:11→20:11)
[2022-09-12] MEDS: METOCLOPRAMIDE HCL 10 MG/10 ML UDC GT SCH ×2 (08:11→20:11)
[2022-09-12] MEDS: CARVEDILOL 6.25 MG TABLET GT SCH ×2 (08:11→20:15)
[2022-09-12] MEDS: AMANTADINE SUSP 50 MG/5 ML UDC GT SCH (08:11)
[2022-09-12] MEDS: BUMETANIDE (1 MG) 1 MG TABLET GT SCH (08:11)
[2022-09-12] MEDS: PANTOPRAZOLE 40 MG/PACK PACK GT SCH ×2 (08:11→20:10)
[2022-09-12] MEDS: MODAFINIL 100 MG TABLET GT SCH (08:11)
[2022-09-12] MEDS: MULTIVIT W/MINERALS 1 TAB TABLET GT SCH (08:11)
[2022-09-12] MEDS: ACETAMINOPHEN 650 MG/20 ML UDC- SA PATIENTS-PAIN ONLY GT SCH (08:12)
[2022-09-12] MEDS: LACOSAMIDE ORAL SOLN 50 MG/5 ML UDC GT SCH ×2 (08:12→20:10)
[2022-09-12] MEDS: ASCORBIC ACID 500 MG TABLET GT SCH (08:12)
[2022-09-12] MEDS: ZINC SULFATE 220 MG CAPSULE GT SCH (08:12)
[2022-09-12] MEDS: METOLAZONE 2.5 MG TABLET GT SCH (08:12)
[2022-09-12] MEDS: RIVAROXABAN 10 MG TABLET PO SCH (08:13)
[2022-09-12] MEDS: NYSTATIN (PYXIS) 500,000 UNIT/5 ML ORAL.SUSP PO SCH ×4 (08:29→20:12)
[2022-09-12] MEDS: HYDROGEN PEROXIDE 480 ML BOTTLE TP SCH ×2 (09:00→21:54)
[2022-09-12] MEDS: DAKINS QUARTER STRENGTH (0.125%) 480 ML BOTTLE TOP SCH ×2 (09:56→20:12)
[2022-09-12] MEDS: VITAMINS A AND D 56.7 GM TUBE TP SCH ×4 (09:56→20:12)
[2022-09-12] MEDS: [UNRECOGNIZED DRUG - OTHER] TP SCH ×2 (09:56→20:12)
[2022-09-12] MEDS: Z GUARD REMEDY 4 OZ OINT TP SCH ×2 (09:56→20:12)
[2022-09-12] MEDS: COLLAGENASE 30 GM TUBE TP SCH ×2 (09:56→20:12)
[2022-09-12 13:00] VITALS: BP 147/72
[2022-09-12 16:57] VITALS: BP 136/64
[2022-09-12] MEDS: GLUCERNA 1.2 1,000 ML BOTTLE GT SCH (17:24)
[2022-09-12 18:33] VITALS: BP 146/67
[2022-09-12 20:28] VITALS: BP 151/53
[2022-09-12] MEDS: ATORVASTATIN 40 MG TABLET GT SCH (21:18)
[2022-09-12] MEDS: INSULIN GLARGINE, 100 UNIT/ML CARTRIDGE SQ SCH (21:19)
[2022-09-13] MEDS: HYDROGEN PEROXIDE 480 ML BOTTLE TP SCH ×2 (00:37→09:00)
[2022-09-13] MEDS: BLOOD SUGAR DIAGNOSTIC 1 EACH STRIP IN SCH ×4 (00:38→17:47)
[2022-09-13] MEDS: PROSOURCE / PROSTAT (PYXIS) 30 ML UDC GT SCH ×4 (00:38→17:37)
[2022-09-13] MEDS: INSULIN REGULAR, HUMAN 100 UNIT/ML 3 ML VIAL SQ PRN ×3 (00:40→17:50)
[2022-09-13] MEDS: ALBUTEROL FS 2.5 MG/0.5 ML VIAL.NEB NEB SCH ×4 (01:41→20:33)
[2022-09-13 02:24] VITALS: BP 120/61
[2022-09-13] MEDS: LEVOTHYROXINE SODIUM 75 MCG TABLET PO SCH (05:19)
[2022-09-13 07:25] VITALS: BP 149/62
[2022-09-13] MEDS: NYSTATIN (PYXIS) 500,000 UNIT/5 ML ORAL.SUSP PO SCH ×4 (09:00→21:50)
[2022-09-13] MEDS: VITAMINS A AND D 56.7 GM TUBE TP SCH ×4 (09:00→21:50)
[2022-09-13] MEDS: RIVAROXABAN 10 MG TABLET PO SCH (09:00)
[2022-09-13] MEDS: Z GUARD REMEDY 4 OZ OINT TP SCH ×2 (09:00→21:50)
[2022-09-13] MEDS: ASCORBIC ACID 500 MG TABLET GT SCH (09:00)
[2022-09-13] MEDS: MULTIVIT W/MINERALS 1 TAB TABLET GT SCH (09:00)
[2022-09-13] MEDS: LACOSAMIDE ORAL SOLN 50 MG/5 ML UDC GT SCH ×2 (09:00→21:50)
[2022-09-13] MEDS: ACIDOPHILUS/BULGARICUS 1 EACH TAB.CHEW GT SCH ×2 (09:00→21:50)
[2022-09-13] MEDS: CARVEDILOL 6.25 MG TABLET GT SCH ×2 (09:00→21:50)
[2022-09-13] MEDS: DAKINS QUARTER STRENGTH (0.125%) 480 ML BOTTLE TOP SCH ×2 (09:00→21:50)
[2022-09-13] MEDS: AMANTADINE SUSP 50 MG/5 ML UDC GT SCH (09:00)
[2022-09-13] MEDS: ZINC SULFATE 220 MG CAPSULE GT SCH (09:00)
[2022-09-13] MEDS: BUMETANIDE (1 MG) 1 MG TABLET GT SCH (09:00)
[2022-09-13] MEDS: POTASSIUM CHLORIDE 20 MEQ POWDER PACKET GT SCH ×2 (09:00→17:12)
[2022-09-13] MEDS: MODAFINIL 100 MG TABLET GT SCH (09:00)
[2022-09-13] MEDS: COLLAGENASE 30 GM TUBE TP SCH ×2 (09:00→21:50)
[2022-09-13] MEDS: [UNRECOGNIZED DRUG - OTHER] TP SCH ×2 (09:00→21:50)
[2022-09-13] MEDS: METOCLOPRAMIDE HCL 10 MG/10 ML UDC GT SCH ×2 (09:00→21:50)
[2022-09-13] MEDS: ACETAMINOPHEN 650 MG/20 ML UDC- SA PATIENTS-PAIN ONLY GT SCH ×2 (09:00→10:00)
[2022-09-13] MEDS: PANTOPRAZOLE 40 MG/PACK PACK GT SCH ×2 (09:00→21:50)
[2022-09-13] MEDS: METOLAZONE 2.5 MG TABLET GT SCH (09:00)
[2022-09-13 10:00] VITALS: BP 149/62
[2022-09-13 12:27] VITALS: BP 138/60
--- NOTE | 2022-09-13 13:05 | NUR ---
Seen and examined by JAMA Fuchs, gave order for Artificial tears 1 drop to both eyes q 4 hrs for dry eyes.
[2022-09-13] MEDS: POLYVINYL ALCOHOL 15 ML BOTTLE EACHEYE SCH ×2 (17:11→21:49)
[2022-09-13 19:46] VITALS: BP 141/59
[2022-09-13] MEDS: ATORVASTATIN 40 MG TABLET GT SCH (21:50)
[2022-09-13] MEDS: INSULIN GLARGINE, 100 UNIT/ML CARTRIDGE SQ SCH (21:52)
[2022-09-14] MEDS: BLOOD SUGAR DIAGNOSTIC 1 EACH STRIP IN SCH ×5 (00:46→23:54)
[2022-09-14] MEDS: POLYVINYL ALCOHOL 15 ML BOTTLE EACHEYE SCH ×6 (00:46→21:42)
[2022-09-14] MEDS: PROSOURCE / PROSTAT (PYXIS) 30 ML UDC GT SCH ×5 (00:46→23:54)
[2022-09-14] MEDS: INSULIN REGULAR, HUMAN 100 UNIT/ML 3 ML VIAL SQ PRN ×5 (00:47→23:55)
[2022-09-14 02:04] VITALS: BP 128/55
[2022-09-14] MEDS: ALBUTEROL FS 2.5 MG/0.5 ML VIAL.NEB NEB SCH ×4 (02:21→20:58)
[2022-09-14] MEDS: LEVOTHYROXINE SODIUM 75 MCG TABLET PO SCH (05:47)
[2022-09-14 08:41] VITALS: BP 129/62
[2022-09-14] MEDS: HYDROGEN PEROXIDE 480 ML BOTTLE TP SCH ×2 (09:24→20:58)
[2022-09-14] MEDS: BUMETANIDE (1 MG) 1 MG TABLET GT SCH (10:00)
[2022-09-14] MEDS: CARVEDILOL 6.25 MG TABLET GT SCH ×2 (10:00→21:42)
[2022-09-14] MEDS: METOCLOPRAMIDE HCL 10 MG/10 ML UDC GT SCH ×2 (10:01→21:42)
[2022-09-14] MEDS: ASCORBIC ACID 500 MG TABLET GT SCH (10:01)
[2022-09-14] MEDS: NYSTATIN (PYXIS) 500,000 UNIT/5 ML ORAL.SUSP PO SCH ×4 (10:01→21:42)
[2022-09-14] MEDS: METOLAZONE 2.5 MG TABLET GT SCH (10:01)
[2022-09-14] MEDS: AMANTADINE SUSP 50 MG/5 ML UDC GT SCH (10:01)
[2022-09-14] MEDS: PANTOPRAZOLE 40 MG/PACK PACK GT SCH ×2 (10:01→21:42)
[2022-09-14] MEDS: POTASSIUM CHLORIDE 20 MEQ POWDER PACKET GT SCH ×2 (10:01→16:56)
[2022-09-14] MEDS: ACIDOPHILUS/BULGARICUS 1 EACH TAB.CHEW GT SCH ×2 (10:01→21:42)
[2022-09-14] MEDS: ZINC SULFATE 220 MG CAPSULE GT SCH (10:01)
[2022-09-14] MEDS: MULTIVIT W/MINERALS 1 TAB TABLET GT SCH (10:01)
[2022-09-14] MEDS: MODAFINIL 100 MG TABLET GT SCH (10:01)
[2022-09-14] MEDS: RIVAROXABAN 10 MG TABLET PO SCH (10:01)
[2022-09-14] MEDS: Z GUARD REMEDY 4 OZ OINT TP SCH ×2 (10:02→21:43)
[2022-09-14] MEDS: COLLAGENASE 30 GM TUBE TP SCH ×2 (10:02→21:43)
[2022-09-14] MEDS: [UNRECOGNIZED DRUG - OTHER] TP SCH ×2 (10:02→21:43)
[2022-09-14] MEDS: DAKINS QUARTER STRENGTH (0.125%) 480 ML BOTTLE TOP SCH ×2 (10:02→21:42)
[2022-09-14] MEDS: VITAMINS A AND D 56.7 GM TUBE TP SCH ×4 (10:03→21:43)
[2022-09-14] MEDS: LACOSAMIDE ORAL SOLN 50 MG/5 ML UDC GT SCH ×2 (10:05→21:42)
[2022-09-14] MEDS: GLUCERNA 1.2 1,000 ML BOTTLE GT SCH (17:28)
[2022-09-14 20:20] VITALS: BP 145/50
[2022-09-14] MEDS: INSULIN GLARGINE, 100 UNIT/ML CARTRIDGE SQ SCH (21:43)
[2022-09-14] MEDS: ATORVASTATIN 40 MG TABLET GT SCH (21:43)
[2022-09-15] MEDS: POLYVINYL ALCOHOL 15 ML BOTTLE EACHEYE SCH ×6 (00:24→21:41)
[2022-09-15] MEDS: ALBUTEROL FS 2.5 MG/0.5 ML VIAL.NEB NEB SCH ×4 (01:58→20:04)
[2022-09-15] MEDS: LEVOTHYROXINE SODIUM 75 MCG TABLET PO SCH (05:34)
[2022-09-15] MEDS: PROSOURCE / PROSTAT (PYXIS) 30 ML UDC GT SCH ×3 (05:34→17:10)
[2022-09-15] MEDS: BLOOD SUGAR DIAGNOSTIC 1 EACH STRIP IN SCH ×3 (05:58→17:10)
[2022-09-15] MEDS: INSULIN REGULAR, HUMAN 100 UNIT/ML 3 ML VIAL SQ PRN ×3 (05:59→17:11)
[2022-09-15 07:39] VITALS: BP 135/62
--- NOTE | 2022-09-15 07:46 | NUR ---
RECEIVED PT SLEEPING PEACEFUL IN BED, G-TUBE INTACT FLUSHING WELL, SPOKE WITH MD URENA AND AGREED TO PUT IN ORDER FOR MEDICATION TO HELP RELIEVE PAIN BEFORE WOUND CARE TX TO BE PLACED ON ORDERS SOON THE ACETAMINOPHEN IS NOT EFFECTIVE AT THIS TIME, WILL F/U WITH CARE AND ORDERS LATER IN SHIFT.
[2022-09-15] MEDS: BUMETANIDE (1 MG) 1 MG TABLET GT SCH (08:15)
[2022-09-15] MEDS: ACIDOPHILUS/BULGARICUS 1 EACH TAB.CHEW GT SCH ×2 (08:16→21:42)
[2022-09-15] MEDS: POTASSIUM CHLORIDE 20 MEQ POWDER PACKET GT SCH ×2 (08:16→17:09)
[2022-09-15] MEDS: MULTIVIT W/MINERALS 1 TAB TABLET GT SCH (08:16)
[2022-09-15] MEDS: METOCLOPRAMIDE HCL 10 MG/10 ML UDC GT SCH ×2 (08:16→21:42)
[2022-09-15] MEDS: MODAFINIL 100 MG TABLET GT SCH (08:16)
[2022-09-15] MEDS: PANTOPRAZOLE 40 MG/PACK PACK GT SCH ×2 (08:16→21:42)
[2022-09-15] MEDS: AMANTADINE SUSP 50 MG/5 ML UDC GT SCH (08:16)
[2022-09-15] MEDS: ACETAMINOPHEN 650 MG/20 ML UDC- SA PATIENTS-PAIN ONLY GT SCH ×2 (08:17→09:17)
[2022-09-15] MEDS ORDERED: HYDROCODONE/APAP 5/325MG TABLET PO PRN (09:00)
[2022-09-15] MEDS: LACOSAMIDE ORAL SOLN 50 MG/5 ML UDC GT SCH ×2 (09:31→21:42)
[2022-09-15] MEDS: ASCORBIC ACID 500 MG TABLET GT SCH (09:31)
[2022-09-15] MEDS: METOLAZONE 2.5 MG TABLET GT SCH (09:31)
[2022-09-15] MEDS: NYSTATIN (PYXIS) 500,000 UNIT/5 ML ORAL.SUSP PO SCH ×4 (09:32→21:42)
[2022-09-15] MEDS: [UNRECOGNIZED DRUG - OTHER] TP SCH ×2 (09:32→21:43)
[2022-09-15] MEDS: HYDROGEN PEROXIDE 480 ML BOTTLE TP SCH ×2 (09:32→20:04)
[2022-09-15] MEDS: ZINC SULFATE 220 MG CAPSULE GT SCH (09:32)
[2022-09-15] MEDS: COLLAGENASE 30 GM TUBE TP SCH ×2 (09:32→21:43)
[2022-09-15] MEDS: VITAMINS A AND D 56.7 GM TUBE TP SCH ×4 (09:32→21:43)
[2022-09-15] MEDS: DAKINS QUARTER STRENGTH (0.125%) 480 ML BOTTLE TOP SCH ×2 (09:32→21:43)
[2022-09-15] MEDS: Z GUARD REMEDY 4 OZ OINT TP SCH ×2 (09:34→21:43)
[2022-09-15] MEDS: RIVAROXABAN 10 MG TABLET PO SCH (09:34)
[2022-09-15] MEDS: CARVEDILOL 6.25 MG TABLET GT SCH ×2 (09:36→21:42)
[2022-09-15 10:00] VITALS: BP 135/62
[2022-09-15 14:12] VITALS: BP 109/55
--- NOTE | 2022-09-15 15:38 | NUR ---
Facility Update: SUNDAY notified patient's Son, Shantanu [phone] via phone call that:" Please note that no [employer] employee tested positive for COVID-19 over the past two weeks. SO continues to following [facility] of Public Healths infection control guidelines and screening for symptoms. All visitation Guidelines remain the same." SUNDAY sent visitation guidelines. SUNDAY also encouraged family's to receive latest COVID-19 Booster if they have not done & informed them they may call the nurses station at [phone] if you they like have their patient receive the latest Booster.
[2022-09-15 20:28] VITALS: BP 126/66
[2022-09-15] MEDS: ATORVASTATIN 40 MG TABLET GT SCH (21:43)
[2022-09-15] MEDS: INSULIN GLARGINE, 100 UNIT/ML CARTRIDGE SQ SCH (21:45)
[2022-09-16] MEDS: BLOOD SUGAR DIAGNOSTIC 1 EACH STRIP IN SCH ×5 (00:02→23:33)
[2022-09-16] MEDS: PROSOURCE / PROSTAT (PYXIS) 30 ML UDC GT SCH ×5 (00:02→23:33)
[2022-09-16] MEDS: POLYVINYL ALCOHOL 15 ML BOTTLE EACHEYE SCH ×6 (00:03→20:38)
[2022-09-16] MEDS: INSULIN REGULAR, HUMAN 100 UNIT/ML 3 ML VIAL SQ PRN ×5 (00:05→23:34)
[2022-09-16] MEDS: ACETAMINOPHEN 650 MG/20.3 ML UDC GT PRN ×2 (00:19→21:07)
[2022-09-16] MEDS: ALBUTEROL FS 2.5 MG/0.5 ML VIAL.NEB NEB SCH ×4 (01:56→19:38)
[2022-09-16 02:11] VITALS: BP 131/58
[2022-09-16] MEDS: LEVOTHYROXINE SODIUM 75 MCG TABLET PO SCH (05:44)
[2022-09-16 07:50] VITALS: BP 126/56
--- NOTE | 2022-09-16 08:47 | NUR ---
RT Pt received on ordered vent settings. No respiratory distress or SOB noted during assessment. TX given and tolerated with no adverse reactions. Pt is suctioned. Trach is patent and secured. Emergency trach and ambu-bag are at the bedside. Alarms are set and audible. Vent plugged in red outlet. Will continue to monitor
[2022-09-16] MEDS: ZINC SULFATE 220 MG CAPSULE GT SCH (09:00)
[2022-09-16] MEDS: ASCORBIC ACID 500 MG TABLET GT SCH (09:00)
[2022-09-16] MEDS: COLLAGENASE 30 GM TUBE TP SCH ×2 (09:00→20:39)
[2022-09-16] MEDS: Z GUARD REMEDY 4 OZ OINT TP SCH ×2 (09:00→20:39)
[2022-09-16] MEDS: NYSTATIN (PYXIS) 500,000 UNIT/5 ML ORAL.SUSP PO SCH ×4 (09:00→20:38)
[2022-09-16] MEDS: MULTIVIT W/MINERALS 1 TAB TABLET GT SCH (09:00)
[2022-09-16] MEDS: VITAMINS A AND D 56.7 GM TUBE TP SCH ×4 (09:00→20:39)
[2022-09-16] MEDS: [UNRECOGNIZED DRUG - OTHER] TP SCH ×2 (09:00→20:39)
[2022-09-16] MEDS: ACIDOPHILUS/BULGARICUS 1 EACH TAB.CHEW GT SCH ×2 (09:00→20:38)
[2022-09-16] MEDS: DAKINS QUARTER STRENGTH (0.125%) 480 ML BOTTLE TOP SCH ×2 (09:00→20:39)
[2022-09-16] MEDS: HYDROGEN PEROXIDE 480 ML BOTTLE TP SCH ×2 (09:05→19:38)
[2022-09-16] MEDS: METOCLOPRAMIDE HCL 10 MG/10 ML UDC GT SCH ×2 (10:00→20:38)
[2022-09-16] MEDS: PANTOPRAZOLE 40 MG/PACK PACK GT SCH ×2 (10:00→20:38)
[2022-09-16] MEDS: AMANTADINE SUSP 50 MG/5 ML UDC GT SCH (10:01)
[2022-09-16] MEDS: LACOSAMIDE ORAL SOLN 50 MG/5 ML UDC GT SCH ×2 (10:04→20:38)
[2022-09-16] MEDS: METOLAZONE 2.5 MG TABLET GT SCH (10:04)
[2022-09-16] MEDS: BUMETANIDE (1 MG) 1 MG TABLET GT SCH (10:05)
[2022-09-16] MEDS: POTASSIUM CHLORIDE 20 MEQ POWDER PACKET GT SCH ×2 (10:05→16:17)
[2022-09-16] MEDS: MODAFINIL 100 MG TABLET GT SCH (10:06)
[2022-09-16] MEDS: CARVEDILOL 6.25 MG TABLET GT SCH ×2 (10:09→20:38)
[2022-09-16] MEDS: RIVAROXABAN 10 MG TABLET PO SCH (10:10)
--- NOTE | 2022-09-16 10:23 | NUR ---
Patient has gastric residual 240ml, color yellow, abdomen soft non-distended, + bowel sounds in all quadrants, no vomiting, had a bowel movement last night, charge nurse made aware, per policy will hold feeding.
--- NOTE | 2022-09-16 11:35 | NUR ---
Gastric residual decreased to 100ml, color yellow, abdomen soft, non-distended, no vomiting, blood sugar 192, will continue to monitor gastric residual, charge nurse made aware, per policy will continue to hold feeding.
--- NOTE | 2022-09-16 12:45 | NUR ---
Re-checked gastric residual decreased to 10ml, color yellow, abdomen soft, non-distended, no vomiting, will resume feeding per policy.
[2022-09-16 18:19] VITALS: BP 141/66
[2022-09-16 19:24] VITALS: BP 132/73
[2022-09-16] MEDS: ATORVASTATIN 40 MG TABLET GT SCH (21:03)
[2022-09-16] MEDS: INSULIN GLARGINE, 100 UNIT/ML CARTRIDGE SQ SCH (21:03)
[2022-09-17] MEDS: POLYVINYL ALCOHOL 15 ML BOTTLE EACHEYE SCH ×6 (00:07→21:25)
[2022-09-17 00:17] VITALS: BP 126/70
[2022-09-17] MEDS: ALBUTEROL FS 2.5 MG/0.5 ML VIAL.NEB NEB SCH ×4 (01:41→18:49)
[2022-09-17 05:15] VITALS: BP 121/56
[2022-09-17] MEDS: PROSOURCE / PROSTAT (PYXIS) 30 ML UDC GT SCH ×4 (05:16→23:26)
[2022-09-17] MEDS: GLUCERNA 1.2 1,000 ML BOTTLE GT SCH (05:16)
[2022-09-17] MEDS: LEVOTHYROXINE SODIUM 75 MCG TABLET PO SCH (05:16)
[2022-09-17] MEDS: BLOOD SUGAR DIAGNOSTIC 1 EACH STRIP IN SCH ×4 (05:30→23:27)
[2022-09-17] MEDS: INSULIN REGULAR, HUMAN 100 UNIT/ML 3 ML VIAL SQ PRN ×4 (05:31→23:27)
[2022-09-17 07:07] VITALS: BP 121/61
[2022-09-17] MEDS: ACETAMINOPHEN 650 MG/20 ML UDC- SA PATIENTS-PAIN ONLY GT SCH (09:00)
[2022-09-17] MEDS: AMANTADINE SUSP 50 MG/5 ML UDC GT SCH (09:00)
[2022-09-17] MEDS: ASCORBIC ACID 500 MG TABLET GT SCH (09:00)
[2022-09-17] MEDS: BUMETANIDE (1 MG) 1 MG TABLET GT SCH (09:00)
[2022-09-17] MEDS: ZINC SULFATE 220 MG CAPSULE GT SCH (09:00)
[2022-09-17] MEDS: LACOSAMIDE ORAL SOLN 50 MG/5 ML UDC GT SCH ×2 (09:00→21:26)
[2022-09-17] MEDS: Z GUARD REMEDY 4 OZ OINT TP SCH ×2 (09:00→21:26)
[2022-09-17] MEDS: MULTIVIT W/MINERALS 1 TAB TABLET GT SCH (09:00)
[2022-09-17] MEDS: METOCLOPRAMIDE HCL 10 MG/10 ML UDC GT SCH ×2 (09:00→21:26)
[2022-09-17] MEDS: POTASSIUM CHLORIDE 20 MEQ POWDER PACKET GT SCH ×2 (09:00→17:17)
[2022-09-17] MEDS: RIVAROXABAN 10 MG TABLET PO SCH (09:00)
[2022-09-17] MEDS: CARVEDILOL 6.25 MG TABLET GT SCH ×2 (09:00→21:26)
[2022-09-17] MEDS: [UNRECOGNIZED DRUG - OTHER] TP SCH ×2 (09:00→21:26)
[2022-09-17] MEDS: VITAMINS A AND D 56.7 GM TUBE TP SCH ×4 (09:00→21:26)
[2022-09-17] MEDS: METOLAZONE 2.5 MG TABLET GT SCH (09:00)
[2022-09-17] MEDS: NYSTATIN (PYXIS) 500,000 UNIT/5 ML ORAL.SUSP PO SCH ×4 (09:00→21:26)
[2022-09-17] MEDS: ACIDOPHILUS/BULGARICUS 1 EACH TAB.CHEW GT SCH ×2 (09:00→21:26)
[2022-09-17] MEDS: MODAFINIL 100 MG TABLET GT SCH (09:00)
[2022-09-17] MEDS: COLLAGENASE 30 GM TUBE TP SCH ×2 (09:00→21:26)
[2022-09-17] MEDS: PANTOPRAZOLE 40 MG/PACK PACK GT SCH ×2 (09:00→21:26)
[2022-09-17] MEDS: DAKINS QUARTER STRENGTH (0.125%) 480 ML BOTTLE TOP SCH ×2 (09:00→21:26)
[2022-09-17] MEDS: HYDROGEN PEROXIDE 480 ML BOTTLE TP SCH ×2 (09:32→21:00)
[2022-09-17 11:33] VITALS: BP 126/65
[2022-09-17 19:20] VITALS: BP 125/72
[2022-09-17] MEDS: ATORVASTATIN 40 MG TABLET GT SCH (21:26)
[2022-09-17] MEDS: INSULIN GLARGINE, 100 UNIT/ML CARTRIDGE SQ SCH (21:27)
[2022-09-18] MEDS: POLYVINYL ALCOHOL 15 ML BOTTLE EACHEYE SCH ×6 (00:03→20:16)
[2022-09-18 00:23] VITALS: BP 117/65
[2022-09-18] MEDS: ALBUTEROL FS 2.5 MG/0.5 ML VIAL.NEB NEB SCH ×4 (00:40→18:55)
[2022-09-18] MEDS: PROSOURCE / PROSTAT (PYXIS) 30 ML UDC GT SCH ×4 (05:14→23:21)
[2022-09-18] MEDS: LEVOTHYROXINE SODIUM 75 MCG TABLET PO SCH (05:15)
[2022-09-18] MEDS: GLUCERNA 1.2 1,000 ML BOTTLE GT SCH (05:15)
[2022-09-18] MEDS: INSULIN REGULAR, HUMAN 100 UNIT/ML 3 ML VIAL SQ PRN ×4 (05:36→23:22)
[2022-09-18] MEDS: BLOOD SUGAR DIAGNOSTIC 1 EACH STRIP IN SCH ×4 (05:36→23:21)
[2022-09-18 07:01] VITALS: BP 122/56
[2022-09-18] MEDS: MODAFINIL 100 MG TABLET GT SCH (08:32)
[2022-09-18] MEDS: AMANTADINE SUSP 50 MG/5 ML UDC GT SCH (08:32)
[2022-09-18] MEDS: ACIDOPHILUS/BULGARICUS 1 EACH TAB.CHEW GT SCH ×2 (08:32→20:17)
[2022-09-18] MEDS: PANTOPRAZOLE 40 MG/PACK PACK GT SCH ×2 (08:32→20:17)
[2022-09-18] MEDS: POTASSIUM CHLORIDE 20 MEQ POWDER PACKET GT SCH ×2 (08:32→16:20)
[2022-09-18] MEDS: BUMETANIDE (1 MG) 1 MG TABLET GT SCH (08:32)
[2022-09-18] MEDS: METOCLOPRAMIDE HCL 10 MG/10 ML UDC GT SCH ×2 (08:32→20:17)
[2022-09-18] MEDS: CARVEDILOL 6.25 MG TABLET GT SCH ×2 (08:32→20:17)
[2022-09-18] MEDS: METOLAZONE 2.5 MG TABLET GT SCH (08:33)
[2022-09-18] MEDS: ACETAMINOPHEN 650 MG/20 ML UDC- SA PATIENTS-PAIN ONLY GT SCH (08:33)
[2022-09-18] MEDS: [UNRECOGNIZED DRUG - OTHER] TP SCH ×2 (08:33→20:17)
[2022-09-18] MEDS: RIVAROXABAN 10 MG TABLET PO SCH (08:33)
[2022-09-18] MEDS: MULTIVIT W/MINERALS 1 TAB TABLET GT SCH (08:33)
[2022-09-18] MEDS: NYSTATIN (PYXIS) 500,000 UNIT/5 ML ORAL.SUSP PO SCH ×4 (08:33→20:17)
[2022-09-18] MEDS: ASCORBIC ACID 500 MG TABLET GT SCH (08:33)
[2022-09-18] MEDS: DAKINS QUARTER STRENGTH (0.125%) 480 ML BOTTLE TOP SCH ×2 (08:33→20:17)
[2022-09-18] MEDS: ZINC SULFATE 220 MG CAPSULE GT SCH (08:33)
[2022-09-18] MEDS: LACOSAMIDE ORAL SOLN 50 MG/5 ML UDC GT SCH ×2 (08:33→20:17)
[2022-09-18] MEDS: Z GUARD REMEDY 4 OZ OINT TP SCH ×2 (08:34→20:17)
[2022-09-18] MEDS: COLLAGENASE 30 GM TUBE TP SCH ×2 (08:34→20:17)
[2022-09-18] MEDS: VITAMINS A AND D 56.7 GM TUBE TP SCH ×4 (08:34→20:17)
--- NOTE | 2022-09-18 09:00 | NUR ---
Seen and examined by Dr. Moreno, no new order given.
[2022-09-18] MEDS: HYDROGEN PEROXIDE 480 ML BOTTLE TP SCH ×2 (09:16→20:22)
[2022-09-18 13:19] VITALS: BP 139/65
[2022-09-18 16:21] VITALS: BP 154/72
[2022-09-18 19:49] VITALS: BP 145/67
[2022-09-18] MEDS: ACETAMINOPHEN 650 MG/20.3 ML UDC GT PRN (20:17)
--- NOTE | 2022-09-18 20:24 | NUR ---
Pt noted with emesis x 1 approx 100 cc feeding color, gt residual 160 cc feeding color, no s/sx of distress, suctioned oral/ trach tolerated, pt also noted with temp : 100.8 oral, PRN Tylenol for fever given, due meds given as ordered, will recheck residual after an hr, held gtf for 1 hr. Scroll Saw Operator nurse made aware. VS: 100.8 temp hr 75 rr 21 O2 sat 99% BP 145/67.
[2022-09-18] MEDS: ATORVASTATIN 40 MG TABLET GT SCH (21:08)
[2022-09-18] MEDS: INSULIN GLARGINE, 100 UNIT/ML CARTRIDGE SQ SCH (21:08)
--- NOTE | 2022-09-18 21:30 | NUR ---
Pt appears sleeping at this time, easy to arouse, Spo2 99% HR 70 , Temp :99.0, gastric residual now 80 cc, resumed GTF , repositioned pt , kept clean and dry, tx done as ordered. Will cont to provide cooling measures, and cont to monitor and anticipate pt's needs.
[2022-09-19] MEDS: POLYVINYL ALCOHOL 15 ML BOTTLE EACHEYE SCH ×6 (00:07→20:54)
[2022-09-19] MEDS: ALBUTEROL FS 2.5 MG/0.5 ML VIAL.NEB NEB SCH ×4 (00:35→19:29)
[2022-09-19 01:14] VITALS: BP 132/70
[2022-09-19] MEDS: LEVOTHYROXINE SODIUM 75 MCG TABLET PO SCH (05:05)
[2022-09-19] MEDS: GLUCERNA 1.2 1,000 ML BOTTLE GT SCH (05:05)
[2022-09-19] MEDS: PROSOURCE / PROSTAT (PYXIS) 30 ML UDC GT SCH ×4 (05:05→23:25)
[2022-09-19 05:29] VITALS: BP 116/57
[2022-09-19] MEDS: BLOOD SUGAR DIAGNOSTIC 1 EACH STRIP IN SCH ×4 (05:30→23:25)
[2022-09-19] MEDS: INSULIN REGULAR, HUMAN 100 UNIT/ML 3 ML VIAL SQ PRN ×4 (05:31→23:27)
--- NOTE | 2022-09-19 06:42 | NUR ---
Pt slept well after emesis last night no further vomiting episode noted, temp still 99.0 oral, no s/sx of resp distress Spo2 9 % HR 70 , tolerated meds, am care, txs. Pt noted with 1.5 day of no bm, upon review noted pt with no stool softener medications, lithopone charger notified, will endorse to am charge and am primary nurse to reach out to PMD for stool softeners and PRN Dulcolax for constipation. All needs attended, safety and comfort noted, pulse of monitor on.
[2022-09-19 07:19] VITALS: BP 130/69
[2022-09-19] MEDS: HYDROGEN PEROXIDE 480 ML BOTTLE TP SCH ×2 (09:06→21:32)
[2022-09-19] MEDS: MODAFINIL 100 MG TABLET GT SCH (09:45)
[2022-09-19] MEDS: PANTOPRAZOLE 40 MG/PACK PACK GT SCH ×2 (09:45→20:55)
[2022-09-19] MEDS: BUMETANIDE (1 MG) 1 MG TABLET GT SCH (09:45)
[2022-09-19] MEDS: ACIDOPHILUS/BULGARICUS 1 EACH TAB.CHEW GT SCH ×2 (09:45→20:55)
[2022-09-19] MEDS: CARVEDILOL 6.25 MG TABLET GT SCH ×2 (09:45→20:54)
[2022-09-19] MEDS: METOCLOPRAMIDE HCL 10 MG/10 ML UDC GT SCH ×2 (09:45→20:55)
[2022-09-19] MEDS: POTASSIUM CHLORIDE 20 MEQ POWDER PACKET GT SCH ×2 (09:45→17:36)
[2022-09-19] MEDS: MULTIVIT W/MINERALS 1 TAB TABLET GT SCH (09:46)
[2022-09-19] MEDS: AMANTADINE SUSP 50 MG/5 ML UDC GT SCH (09:46)
[2022-09-19] MEDS: RIVAROXABAN 10 MG TABLET PO SCH (09:46)
[2022-09-19] MEDS: ACETAMINOPHEN 650 MG/20 ML UDC- SA PATIENTS-PAIN ONLY GT SCH (09:46)
[2022-09-19] MEDS: ASCORBIC ACID 500 MG TABLET GT SCH (09:46)
[2022-09-19] MEDS: NYSTATIN (PYXIS) 500,000 UNIT/5 ML ORAL.SUSP PO SCH ×4 (09:46→20:55)
[2022-09-19] MEDS: LACOSAMIDE ORAL SOLN 50 MG/5 ML UDC GT SCH ×2 (09:46→20:55)
[2022-09-19] MEDS: METOLAZONE 2.5 MG TABLET GT SCH (09:46)
[2022-09-19] MEDS: ZINC SULFATE 220 MG CAPSULE GT SCH (09:46)
[2022-09-19] MEDS: COLLAGENASE 30 GM TUBE TP SCH ×2 (10:15→20:56)
[2022-09-19] MEDS: VITAMINS A AND D 56.7 GM TUBE TP SCH ×4 (10:15→20:56)
[2022-09-19] MEDS: DAKINS QUARTER STRENGTH (0.125%) 480 ML BOTTLE TOP SCH ×2 (10:15→20:55)
[2022-09-19] MEDS: [UNRECOGNIZED DRUG - OTHER] TP SCH ×2 (10:15→20:56)
[2022-09-19] MEDS: Z GUARD REMEDY 4 OZ OINT TP SCH ×2 (10:15→20:56)
[2022-09-19 12:21] VITALS: BP 124/70
[2022-09-19] MEDS: DOCUSATE SODIUM LIQ 100 MG/10 ML UDC GT SCH ×2 (13:15→17:36)
[2022-09-19 15:36] VITALS: BP 122/64
[2022-09-19 19:55] VITALS: BP 148/70
[2022-09-19] MEDS: ATORVASTATIN 40 MG TABLET GT SCH (21:30)
[2022-09-19] MEDS: INSULIN GLARGINE, 100 UNIT/ML CARTRIDGE SQ SCH (21:31)
[2022-09-19] MEDS ORDERED: SENNOSIDES/DOCUSATE SODIUM 1 TAB TABLET GT SCH (22:00)
--- NOTE | 2022-09-19 22:50 | NUR ---
RT Pt received on ordered vent settings: AC 12 400 25% +5. Tolerating with an SPO2 of 100%. No SOB or respiratory distress noted during assessment. Q6 nebulizer tx given and tolerated with no adverse reactions noted. Suctioned x2. Trach is secured and patent. Emergency trach and Ambu-Bag are at the bedside. Vent is plugged into red outlet, and alarms are on and audible.
[2022-09-20] MEDS: POLYVINYL ALCOHOL 15 ML BOTTLE EACHEYE SCH ×6 (00:27→21:36)
[2022-09-20 01:14] VITALS: BP 111/60
[2022-09-20] MEDS: ALBUTEROL FS 2.5 MG/0.5 ML VIAL.NEB NEB SCH ×4 (01:36→19:30)
[2022-09-20] MEDS: PROSOURCE / PROSTAT (PYXIS) 30 ML UDC GT SCH ×4 (05:26→23:46)
[2022-09-20] MEDS: LEVOTHYROXINE SODIUM 75 MCG TABLET PO SCH (05:26)
[2022-09-20] MEDS: GLUCERNA 1.2 1,000 ML BOTTLE GT SCH (05:38)
[2022-09-20] MEDS: BLOOD SUGAR DIAGNOSTIC 1 EACH STRIP IN SCH ×4 (06:00→23:46)
[2022-09-20] MEDS: INSULIN REGULAR, HUMAN 100 UNIT/ML 3 ML VIAL SQ PRN ×4 (06:01→23:47)
[2022-09-20 07:36] VITALS: BP 126/54
[2022-09-20] MEDS: HYDROGEN PEROXIDE 480 ML BOTTLE TP SCH ×2 (08:12→21:09)
[2022-09-20] MEDS: BUMETANIDE (1 MG) 1 MG TABLET GT SCH (09:05)
[2022-09-20] MEDS: DOCUSATE SODIUM LIQ 100 MG/10 ML UDC GT SCH ×3 (09:05→17:28)
[2022-09-20] MEDS: POTASSIUM CHLORIDE 20 MEQ POWDER PACKET GT SCH ×2 (09:06→17:28)
[2022-09-20] MEDS: CARVEDILOL 6.25 MG TABLET GT SCH ×2 (09:06→21:36)
[2022-09-20] MEDS: PANTOPRAZOLE 40 MG/PACK PACK GT SCH ×2 (09:07→21:36)
[2022-09-20] MEDS: AMANTADINE SUSP 50 MG/5 ML UDC GT SCH (09:07)
[2022-09-20] MEDS: MODAFINIL 100 MG TABLET GT SCH (09:07)
[2022-09-20] MEDS: METOCLOPRAMIDE HCL 10 MG/10 ML UDC GT SCH ×2 (09:07→21:36)
[2022-09-20] MEDS: MULTIVIT W/MINERALS 1 TAB TABLET GT SCH (09:07)
[2022-09-20] MEDS: ACIDOPHILUS/BULGARICUS 1 EACH TAB.CHEW GT SCH ×2 (09:07→21:36)
[2022-09-20] MEDS: ACETAMINOPHEN 650 MG/20 ML UDC- SA PATIENTS-PAIN ONLY GT SCH (09:08)
[2022-09-20] MEDS: ASCORBIC ACID 500 MG TABLET GT SCH (09:08)
[2022-09-20] MEDS: LACOSAMIDE ORAL SOLN 50 MG/5 ML UDC GT SCH ×2 (09:08→21:37)
[2022-09-20] MEDS: RIVAROXABAN 10 MG TABLET PO SCH (09:09)
[2022-09-20] MEDS: ZINC SULFATE 220 MG CAPSULE GT SCH (09:09)
[2022-09-20] MEDS: METOLAZONE 2.5 MG TABLET GT SCH (09:09)
[2022-09-20] MEDS: NYSTATIN (PYXIS) 500,000 UNIT/5 ML ORAL.SUSP PO SCH ×4 (09:09→21:37)
[2022-09-20] MEDS: DAKINS QUARTER STRENGTH (0.125%) 480 ML BOTTLE TOP SCH ×2 (10:40→21:37)
[2022-09-20] MEDS: Z GUARD REMEDY 4 OZ OINT TP SCH ×2 (10:40→21:37)
[2022-09-20] MEDS: [UNRECOGNIZED DRUG - OTHER] TP SCH ×2 (10:40→21:37)
[2022-09-20] MEDS: VITAMINS A AND D 56.7 GM TUBE TP SCH ×4 (10:40→21:37)
[2022-09-20] MEDS: COLLAGENASE 30 GM TUBE TP SCH ×2 (10:40→21:37)
[2022-09-20 12:39] VITALS: BP 136/68
--- NOTE | 2022-09-20 15:54 | NUR ---
Pt still on contact isolation for ESBL urine, ESBL wound, MDRO E coli sputum. JAMA Grimes said there is no need to reculture. She said to discontinue isolation. Pt has been afebrile, T 98.3. No hematuria noted, no foul odor in urine noted. Wound appears clean, no signs of infection. Reminded JAMA Grimes to document.
--- NOTE | 2022-09-20 16:00 | NUR ---
Notified Dr Moreno that pt's daughter is asking for a neurology consult. She said pt used to be seen by neurologist prior. Dr Moreno ordered neurology consult with Dr Taylor. Asked Dr Taylor to see pt. He said he will see pt but not today.
[2022-09-20 19:51] VITALS: BP 155/71
[2022-09-20] MEDS: ATORVASTATIN 40 MG TABLET GT SCH (21:37)
[2022-09-20] MEDS: SENNOSIDES 8.6 MG TABLET GT SCH (21:37)
[2022-09-20] MEDS: INSULIN GLARGINE, 100 UNIT/ML CARTRIDGE SQ SCH (21:38)
[2022-09-21] MEDS: POLYVINYL ALCOHOL 15 ML BOTTLE EACHEYE SCH ×6 (00:14→21:47)
[2022-09-21] MEDS: ALBUTEROL FS 2.5 MG/0.5 ML VIAL.NEB NEB SCH ×4 (01:28→20:29)
[2022-09-21 02:05] VITALS: BP 135/67
[2022-09-21] MEDS: GLUCERNA 1.2 1,000 ML BOTTLE GT SCH (05:44)
[2022-09-21] MEDS: INSULIN REGULAR, HUMAN 100 UNIT/ML 3 ML VIAL SQ PRN ×4 (05:44→23:59)
[2022-09-21] MEDS: LEVOTHYROXINE SODIUM 75 MCG TABLET PO SCH (05:45)
[2022-09-21] MEDS: BLOOD SUGAR DIAGNOSTIC 1 EACH STRIP IN SCH ×4 (05:45→23:58)
[2022-09-21] MEDS: PROSOURCE / PROSTAT (PYXIS) 30 ML UDC GT SCH ×4 (05:45→23:58)
[2022-09-21 07:40] VITALS: BP 126/53
[2022-09-21] MEDS: BUMETANIDE (1 MG) 1 MG TABLET GT SCH (08:21)
[2022-09-21] MEDS: DOCUSATE SODIUM LIQ 100 MG/10 ML UDC GT SCH ×3 (08:21→17:26)
[2022-09-21] MEDS: PANTOPRAZOLE 40 MG/PACK PACK GT SCH ×2 (08:22→21:48)
[2022-09-21] MEDS: METOCLOPRAMIDE HCL 10 MG/10 ML UDC GT SCH ×2 (08:22→21:48)
[2022-09-21] MEDS: ZINC SULFATE 220 MG CAPSULE GT SCH (08:22)
[2022-09-21] MEDS: ASCORBIC ACID 500 MG TABLET GT SCH (08:22)
[2022-09-21] MEDS: CARVEDILOL 6.25 MG TABLET GT SCH ×2 (08:22→21:48)
[2022-09-21] MEDS: AMANTADINE SUSP 50 MG/5 ML UDC GT SCH (08:22)
[2022-09-21] MEDS: ACIDOPHILUS/BULGARICUS 1 EACH TAB.CHEW GT SCH ×2 (08:22→21:48)
[2022-09-21] MEDS: MODAFINIL 100 MG TABLET GT SCH (08:22)
[2022-09-21] MEDS: ACETAMINOPHEN 650 MG/20 ML UDC- SA PATIENTS-PAIN ONLY GT SCH (08:22)
[2022-09-21] MEDS: METOLAZONE 2.5 MG TABLET GT SCH (08:22)
[2022-09-21] MEDS: NYSTATIN (PYXIS) 500,000 UNIT/5 ML ORAL.SUSP PO SCH ×4 (08:22→21:49)
[2022-09-21] MEDS: POTASSIUM CHLORIDE 20 MEQ POWDER PACKET GT SCH ×2 (08:22→17:26)
[2022-09-21] MEDS: LACOSAMIDE ORAL SOLN 50 MG/5 ML UDC GT SCH ×2 (08:22→21:48)
[2022-09-21] MEDS: MULTIVIT W/MINERALS 1 TAB TABLET GT SCH (08:22)
[2022-09-21] MEDS: RIVAROXABAN 10 MG TABLET PO SCH (08:23)
[2022-09-21] MEDS: HYDROGEN PEROXIDE 480 ML BOTTLE TP SCH ×2 (08:55→20:10)
[2022-09-21] MEDS: [UNRECOGNIZED DRUG - OTHER] TP SCH ×2 (09:55→21:49)
[2022-09-21] MEDS: DAKINS QUARTER STRENGTH (0.125%) 480 ML BOTTLE TOP SCH ×2 (09:55→21:49)
[2022-09-21] MEDS: VITAMINS A AND D 56.7 GM TUBE TP SCH ×4 (09:56→21:49)
[2022-09-21] MEDS: COLLAGENASE 30 GM TUBE TP SCH ×2 (09:56→21:49)
[2022-09-21] MEDS: Z GUARD REMEDY 4 OZ OINT TP SCH ×2 (09:56→21:49)
--- NOTE | 2022-09-21 16:51 | NUR ---
Called pt's daughter Tana to offer the Covid bivalent booster again. Tana previously said she will think about it. Left message via voicemail. Addendum: 09/27/22 at 0915 by KRISTAN THOMPSON RN Late entry 09/21/22 Tana called back and gave consent to administer Covid bivalent booster. Education provided regarding risks, benefits, and possible side effects.
[2022-09-21 17:00] VITALS: BP 122/57
[2022-09-21 17:56] VITALS: BP 134/64
[2022-09-21 19:59] VITALS: BP 151/65
[2022-09-21] MEDS: SENNOSIDES 8.6 MG TABLET GT SCH (21:50)
[2022-09-21] MEDS: INSULIN GLARGINE, 100 UNIT/ML CARTRIDGE SQ SCH (21:50)
[2022-09-21] MEDS: ATORVASTATIN 40 MG TABLET GT SCH (21:50)
[2022-09-22] MEDS: POLYVINYL ALCOHOL 15 ML BOTTLE EACHEYE SCH ×6 (00:02→21:52)
[2022-09-22] MEDS: ALBUTEROL FS 2.5 MG/0.5 ML VIAL.NEB NEB SCH ×4 (01:58→19:56)
[2022-09-22] MEDS: BLOOD SUGAR DIAGNOSTIC 1 EACH STRIP IN SCH ×4 (06:02→23:40)
[2022-09-22] MEDS: PROSOURCE / PROSTAT (PYXIS) 30 ML UDC GT SCH ×4 (06:02→23:40)
[2022-09-22] MEDS: LEVOTHYROXINE SODIUM 75 MCG TABLET PO SCH (06:02)
[2022-09-22] MEDS: INSULIN REGULAR, HUMAN 100 UNIT/ML 3 ML VIAL SQ PRN ×4 (06:03→23:42)
[2022-09-22 07:16] VITALS: BP 107/68
--- NOTE | 2022-09-22 08:21 | NUR ---
Family Invite to IDT: SUNDAY emailed the patient's son, Shantanu [phone] SUNDAY to invite them to participate in 09/24/22 12:30p IDT meeting via phone conference. Per Shantanu, he can participate. Shantanu requested his sister, Gloria also be invited so they may both participate. SUNDAY called the pt.'s daughter, Gloria [phone] and left voicemail inviting her to 09/24/2022 IDT meeting. SUNDAY will follow up accordingly.
[2022-09-22] MEDS: ASCORBIC ACID 500 MG TABLET GT SCH (09:58)
[2022-09-22] MEDS: PANTOPRAZOLE 40 MG/PACK PACK GT SCH ×2 (09:58→21:53)
[2022-09-22] MEDS: BUMETANIDE (1 MG) 1 MG TABLET GT SCH (09:58)
[2022-09-22] MEDS: ACIDOPHILUS/BULGARICUS 1 EACH TAB.CHEW GT SCH ×2 (09:58→21:53)
[2022-09-22] MEDS: POTASSIUM CHLORIDE 20 MEQ POWDER PACKET GT SCH ×2 (09:58→16:16)
[2022-09-22] MEDS: MODAFINIL 100 MG TABLET GT SCH (09:58)
[2022-09-22] MEDS: [UNRECOGNIZED DRUG - OTHER] TP SCH ×2 (09:58→21:53)
[2022-09-22] MEDS: LACOSAMIDE ORAL SOLN 50 MG/5 ML UDC GT SCH ×2 (09:58→21:53)
[2022-09-22] MEDS: VITAMINS A AND D 56.7 GM TUBE TP SCH ×4 (09:58→21:53)
[2022-09-22] MEDS: MULTIVIT W/MINERALS 1 TAB TABLET GT SCH (09:58)
[2022-09-22] MEDS: METOLAZONE 2.5 MG TABLET GT SCH (09:58)
[2022-09-22] MEDS: NYSTATIN (PYXIS) 500,000 UNIT/5 ML ORAL.SUSP PO SCH ×4 (09:58→21:53)
[2022-09-22] MEDS: DAKINS QUARTER STRENGTH (0.125%) 480 ML BOTTLE TOP SCH ×2 (09:58→21:53)
[2022-09-22] MEDS: RIVAROXABAN 10 MG TABLET PO SCH (09:58)
[2022-09-22] MEDS: DOCUSATE SODIUM LIQ 100 MG/10 ML UDC GT SCH ×3 (09:58→16:16)
[2022-09-22] MEDS: Z GUARD REMEDY 4 OZ OINT TP SCH ×2 (09:58→21:53)
[2022-09-22] MEDS: COLLAGENASE 30 GM TUBE TP SCH ×2 (09:58→21:53)
[2022-09-22] MEDS: ZINC SULFATE 220 MG CAPSULE GT SCH (09:58)
[2022-09-22] MEDS: CARVEDILOL 6.25 MG TABLET GT SCH ×2 (09:58→21:53)
[2022-09-22] MEDS: ACETAMINOPHEN 650 MG/20 ML UDC- SA PATIENTS-PAIN ONLY GT SCH (09:58)
[2022-09-22] MEDS: METOCLOPRAMIDE HCL 10 MG/10 ML UDC GT SCH ×2 (09:58→21:53)
[2022-09-22] MEDS: AMANTADINE SUSP 50 MG/5 ML UDC GT SCH (09:58)
[2022-09-22 12:16] VITALS: BP 109/77
--- NOTE | 2022-09-22 13:39 | NUR ---
Facility Update: SUNDAY called the pt.'s son, Nagi [phone] and call went to voicemail. SUNDAY left voicemail to Shantanu stating that, "Please note that a [employer] employee tested positive for COVID-19 today. SO continues to following [facility] of Public Healths infection control guidelines. SO will initiate response testing and screening for symptoms of Residents and staff." SUNDAY attached visitation guidelines. SUNDAY left unit number so Shantanu may call if he has any questions.
[2022-09-22 18:22] VITALS: BP 136/69
[2022-09-22] MEDS: HYDROGEN PEROXIDE 480 ML BOTTLE TP SCH (19:56)
[2022-09-22 21:20] VITALS: BP 140/66
[2022-09-22] MEDS: SENNOSIDES 8.6 MG TABLET GT SCH (21:53)
[2022-09-22] MEDS: ATORVASTATIN 40 MG TABLET GT SCH (21:53)
[2022-09-22] MEDS: INSULIN GLARGINE, 100 UNIT/ML CARTRIDGE SQ SCH (21:54)
[2022-09-23] MEDS: POLYVINYL ALCOHOL 15 ML BOTTLE EACHEYE SCH ×6 (00:07→20:23)
[2022-09-23 00:30] VITALS: BP 128/62
[2022-09-23] MEDS: ALBUTEROL FS 2.5 MG/0.5 ML VIAL.NEB NEB SCH ×4 (01:40→19:58)
[2022-09-23] MEDS: PROSOURCE / PROSTAT (PYXIS) 30 ML UDC GT SCH ×4 (05:31→23:27)
[2022-09-23] MEDS: BLOOD SUGAR DIAGNOSTIC 1 EACH STRIP IN SCH ×4 (05:32→23:27)
[2022-09-23] MEDS: LEVOTHYROXINE SODIUM 75 MCG TABLET PO SCH (05:32)
[2022-09-23] MEDS: INSULIN REGULAR, HUMAN 100 UNIT/ML 3 ML VIAL SQ PRN ×4 (05:33→23:28)
[2022-09-23 07:14] VITALS: BP 108/69
[2022-09-23] MEDS: DOCUSATE SODIUM LIQ 100 MG/10 ML UDC GT SCH ×3 (08:16→16:23)
[2022-09-23] MEDS: BUMETANIDE (1 MG) 1 MG TABLET GT SCH (08:16)
[2022-09-23] MEDS: CARVEDILOL 6.25 MG TABLET GT SCH ×2 (08:17→20:24)
[2022-09-23] MEDS: POTASSIUM CHLORIDE 20 MEQ POWDER PACKET GT SCH ×2 (08:17→16:21)
[2022-09-23] MEDS: PANTOPRAZOLE 40 MG/PACK PACK GT SCH ×2 (08:18→20:24)
[2022-09-23] MEDS: ACIDOPHILUS/BULGARICUS 1 EACH TAB.CHEW GT SCH ×2 (08:18→20:24)
[2022-09-23] MEDS: METOCLOPRAMIDE HCL 10 MG/10 ML UDC GT SCH ×2 (08:18→20:24)
[2022-09-23] MEDS: MODAFINIL 100 MG TABLET GT SCH (08:18)
[2022-09-23] MEDS: AMANTADINE SUSP 50 MG/5 ML UDC GT SCH (08:19)
[2022-09-23] MEDS: MULTIVIT W/MINERALS 1 TAB TABLET GT SCH (08:19)
[2022-09-23] MEDS: ACETAMINOPHEN 650 MG/20 ML UDC- SA PATIENTS-PAIN ONLY GT SCH (08:23)
[2022-09-23] MEDS: LACOSAMIDE ORAL SOLN 50 MG/5 ML UDC GT SCH ×2 (08:24→20:24)
[2022-09-23] MEDS: ZINC SULFATE 220 MG CAPSULE GT SCH (08:25)
[2022-09-23] MEDS: NYSTATIN (PYXIS) 500,000 UNIT/5 ML ORAL.SUSP PO SCH ×4 (08:25→20:24)
[2022-09-23] MEDS: METOLAZONE 2.5 MG TABLET GT SCH (08:25)
[2022-09-23] MEDS: [UNRECOGNIZED DRUG - OTHER] TP SCH ×2 (08:26→20:25)
[2022-09-23] MEDS: RIVAROXABAN 10 MG TABLET PO SCH (08:26)
[2022-09-23] MEDS: DAKINS QUARTER STRENGTH (0.125%) 480 ML BOTTLE TOP SCH ×2 (08:26→20:25)
[2022-09-23] MEDS: Z GUARD REMEDY 4 OZ OINT TP SCH ×2 (08:26→20:25)
[2022-09-23] MEDS: VITAMINS A AND D 56.7 GM TUBE TP SCH ×4 (08:27→20:25)
--- NOTE | 2022-09-23 08:39 | NUR ---
Patient has gastric residual 120ml, color yellow, abdomen soft non-distended, + bowel sounds in all quadrants, no vomiting, charge nurse made aware, per policy will hold feeding.
[2022-09-23] MEDS: COLLAGENASE 30 GM TUBE TP SCH ×2 (09:00→20:25)
[2022-09-23] MEDS: ASCORBIC ACID 500 MG TABLET GT SCH (09:00)
[2022-09-23] MEDS: HYDROGEN PEROXIDE 480 ML BOTTLE TP SCH ×2 (09:19→19:58)
--- NOTE | 2022-09-23 10:32 | NUR ---
Gastric residual decreased to 10ml, color yellow, abdomen soft, non-distended, no vomiting, blood sugar 299, will continue to monitor gastric residual, charge nurse made aware, per policy will continue G-tube feeding.
--- NOTE | 2022-09-23 11:12 | NUR ---
RT NOTE Pt received on ordered vent settings. No respiratory distress or SOB noted during assessment. TX given and tolerated with no adverse reactions. Pt is suctioned. Trach is patent and secured. Emergency trach and ambu-bag are at the bedside. Alarms are set and audible. Vent plugged in red outlet. Will continue to monitor.
[2022-09-23 12:15] VITALS: BP 133/62
[2022-09-23] MEDS ORDERED: COVID-19 VACC,MRNA(MODERNA) 100 MCG/0.5 ML IM ONE (15:00)
--- NOTE | 2022-09-23 15:00 | NUR ---
Moderna Covid-19 (0.5ml) given on right deltoid,IM no bleeding, patient tolerated well. Moderna Bivallent Covid-19 vaccine, manufacture Moderna, lot # [id number], exp 06/09/22. Will continue to monitor patient for any adverse reactions, will endorse to night time babysitter to monitor.
[2022-09-23 19:18] VITALS: BP 129/58
[2022-09-23] MEDS: SENNOSIDES 8.6 MG TABLET GT SCH (21:23)
[2022-09-23] MEDS: ATORVASTATIN 40 MG TABLET GT SCH (21:23)
[2022-09-23] MEDS: INSULIN GLARGINE, 100 UNIT/ML CARTRIDGE SQ SCH (21:23)
[2022-09-23] MEDS: GLUCERNA 1.2 1,000 ML BOTTLE GT SCH (23:35)
[2022-09-24] MEDS: POLYVINYL ALCOHOL 15 ML BOTTLE EACHEYE SCH ×6 (00:05→21:32)
[2022-09-24 00:10] VITALS: BP 120/55
[2022-09-24] MEDS: ALBUTEROL FS 2.5 MG/0.5 ML VIAL.NEB NEB SCH ×4 (01:54→20:18)
[2022-09-24] MEDS: PROSOURCE / PROSTAT (PYXIS) 30 ML UDC GT SCH ×3 (05:17→17:45)
[2022-09-24] MEDS: LEVOTHYROXINE SODIUM 75 MCG TABLET PO SCH (05:17)
[2022-09-24] MEDS: BLOOD SUGAR DIAGNOSTIC 1 EACH STRIP IN SCH ×3 (05:25→17:46)
[2022-09-24] MEDS: INSULIN REGULAR, HUMAN 100 UNIT/ML 3 ML VIAL SQ PRN ×3 (05:27→17:48)
--- NOTE | 2022-09-24 06:21 | NUR ---
Moderna Covid-19 (0.5ml) Bivalent given on right deltoid yesterday 12\01 ,no adverse reaction noted,afebrile 98.6,will continue to monitor.
[2022-09-24 07:30] VITALS: BP 133/52
[2022-09-24] MEDS: BUMETANIDE (1 MG) 1 MG TABLET GT SCH (08:54)
[2022-09-24] MEDS: PANTOPRAZOLE 40 MG/PACK PACK GT SCH ×2 (08:54→21:32)
[2022-09-24] MEDS: DOCUSATE SODIUM LIQ 100 MG/10 ML UDC GT SCH ×3 (08:54→17:45)
[2022-09-24] MEDS: MULTIVIT W/MINERALS 1 TAB TABLET GT SCH (08:54)
[2022-09-24] MEDS: ACIDOPHILUS/BULGARICUS 1 EACH TAB.CHEW GT SCH ×2 (08:54→21:31)
[2022-09-24] MEDS: AMANTADINE SUSP 50 MG/5 ML UDC GT SCH (08:54)
[2022-09-24] MEDS: POTASSIUM CHLORIDE 20 MEQ POWDER PACKET GT SCH ×2 (08:54→17:45)
[2022-09-24] MEDS: CARVEDILOL 6.25 MG TABLET GT SCH ×2 (08:54→21:32)
[2022-09-24] MEDS: METOCLOPRAMIDE HCL 10 MG/10 ML UDC GT SCH ×2 (08:54→21:32)
[2022-09-24] MEDS: MODAFINIL 100 MG TABLET GT SCH (08:54)
[2022-09-24] MEDS: NYSTATIN (PYXIS) 500,000 UNIT/5 ML ORAL.SUSP PO SCH ×4 (08:57→21:32)
[2022-09-24] MEDS: METOLAZONE 2.5 MG TABLET GT SCH (08:57)
[2022-09-24] MEDS: ACETAMINOPHEN 650 MG/20 ML UDC- SA PATIENTS-PAIN ONLY GT SCH (08:57)
[2022-09-24] MEDS: RIVAROXABAN 10 MG TABLET PO SCH (08:57)
[2022-09-24] MEDS: ASCORBIC ACID 500 MG TABLET GT SCH (08:57)
[2022-09-24] MEDS: ZINC SULFATE 220 MG CAPSULE GT SCH (08:57)
[2022-09-24] MEDS: LACOSAMIDE ORAL SOLN 50 MG/5 ML UDC GT SCH ×2 (08:57→21:32)
[2022-09-24] MEDS: DAKINS QUARTER STRENGTH (0.125%) 480 ML BOTTLE TOP SCH ×2 (08:58→21:32)
[2022-09-24] MEDS: [UNRECOGNIZED DRUG - OTHER] TP SCH ×2 (08:58→21:32)
[2022-09-24] MEDS: Z GUARD REMEDY 4 OZ OINT TP SCH ×2 (08:58→21:33)
[2022-09-24] MEDS: VITAMINS A AND D 56.7 GM TUBE TP SCH ×4 (08:59→21:33)
[2022-09-24] MEDS: COLLAGENASE 30 GM TUBE TP SCH ×2 (08:59→21:33)
[2022-09-24] MEDS: HYDROGEN PEROXIDE 480 ML BOTTLE TP SCH ×2 (09:01→20:18)
[2022-09-24 14:44] VITALS: BP 129/63
--- NOTE | 2022-09-24 14:58 | NUR ---
INTERDISCIPLINARY PLAN OF CARE CONFERENCE took place today. The pt.'s son, Shantanu Craft [phone] and daughter, Gloria both participated via phone conference. Dr. Khan and Interdisciplinary team discussed the plan of care in detail. Current orders as well as treatments and medications were reviewed. Dr. Khan addressed family's questions and explained the pt.'s prognosis in regards to pulmonary care.
--- NOTE | 2022-09-24 16:10 | NUR ---
RECEIVED PATIENT ON MD ORDERED VENT SETTINGS. HAS A TRACH PORTEX 7 CUFFED. AIRWAY PATENT AND SECURE. INLINE HHN TXS QUAN WELL WITH NO ADVERSE REACTION NOTED. AMBU BAG AND EMERGENCY TRACH AT THE BEDSIDE. VENT PLUGGED INTO RED OUTLET. ALARMS SET AND AUDIBLE. SMALL YELLOW THICK SECRETIONS NOTED.
--- NOTE | 2022-09-24 18:50 | NUR ---
S/P Moderna Covid-19 (0.5ml) Bivalent on right deltoid on ,no adverse reaction noted, afebrile 97.6F, no s/s of pain. Will continue to monitor.
[2022-09-24 19:05] VITALS: BP 136/70
[2022-09-24] MEDS: GLUCERNA 1.2 1,000 ML BOTTLE GT SCH (19:18)
--- NOTE | 2022-09-24 20:18 | NUR ---
[facility]. Q6 BREATHING TX GIVEN PER MD'S ORDER . NO ADVERSE REACTION NOTED. NO SOB OR RESP DISTRESS NOTED AT THIS TIME. TRACH IS PATENT AND SECURED. PT SUCTIONED AT THIS TIME. ALARMS ARE SET AND AUDIBLE. AMBU BAG AND EMERGENCY SPARE TRACH AT BEDSIDE. VENT PLUGGED INTO RED OUTLET. WILL CONTINUE TO MONITOR PT T/O SHIFT.
[2022-09-24] MEDS: INSULIN GLARGINE, 100 UNIT/ML CARTRIDGE SQ SCH (21:33)
[2022-09-24] MEDS: ATORVASTATIN 40 MG TABLET GT SCH (21:33)
[2022-09-25] MEDS: POLYVINYL ALCOHOL 15 ML BOTTLE EACHEYE SCH ×6 (00:06→21:16)
[2022-09-25] MEDS: PROSOURCE / PROSTAT (PYXIS) 30 ML UDC GT SCH ×5 (00:06→23:47)
[2022-09-25] MEDS: BLOOD SUGAR DIAGNOSTIC 1 EACH STRIP IN SCH ×5 (00:06→23:47)
[2022-09-25] MEDS: INSULIN REGULAR, HUMAN 100 UNIT/ML 3 ML VIAL SQ PRN ×5 (00:07→23:48)
[2022-09-25 00:12] VITALS: BP 109/56
[2022-09-25] MEDS: ALBUTEROL FS 2.5 MG/0.5 ML VIAL.NEB NEB SCH ×4 (01:39→19:54)
[2022-09-25] MEDS: LEVOTHYROXINE SODIUM 75 MCG TABLET PO SCH (05:13)
--- NOTE | 2022-09-25 06:54 | NUR ---
"S|P Moderna Covid-19 (0.5ml) Bivalent given on right deltoid 12\\01 ,no adverse reaction noted,afebrile. will continue to monitor."
[2022-09-25 07:08] VITALS: BP 119/59
[2022-09-25] MEDS: HYDROGEN PEROXIDE 480 ML BOTTLE TP SCH ×2 (09:05→19:55)
[2022-09-25] MEDS: VITAMINS A AND D 56.7 GM TUBE TP SCH ×4 (09:59→21:18)
[2022-09-25] MEDS: METOLAZONE 2.5 MG TABLET GT SCH (09:59)
[2022-09-25] MEDS: DAKINS QUARTER STRENGTH (0.125%) 480 ML BOTTLE TOP SCH ×2 (09:59→21:18)
[2022-09-25] MEDS: BUMETANIDE (1 MG) 1 MG TABLET GT SCH (09:59)
[2022-09-25] MEDS: POTASSIUM CHLORIDE 20 MEQ POWDER PACKET GT SCH ×2 (09:59→16:35)
[2022-09-25] MEDS: COLLAGENASE 30 GM TUBE TP SCH ×2 (09:59→21:18)
[2022-09-25] MEDS: ASCORBIC ACID 500 MG TABLET GT SCH (09:59)
[2022-09-25] MEDS: AMANTADINE SUSP 50 MG/5 ML UDC GT SCH (09:59)
[2022-09-25] MEDS: NYSTATIN (PYXIS) 500,000 UNIT/5 ML ORAL.SUSP PO SCH ×4 (09:59→21:17)
[2022-09-25] MEDS: Z GUARD REMEDY 4 OZ OINT TP SCH ×2 (09:59→21:18)
[2022-09-25] MEDS: ZINC SULFATE 220 MG CAPSULE GT SCH (09:59)
[2022-09-25] MEDS: DOCUSATE SODIUM LIQ 100 MG/10 ML UDC GT SCH ×3 (09:59→16:35)
[2022-09-25] MEDS: RIVAROXABAN 10 MG TABLET PO SCH (09:59)
[2022-09-25] MEDS: PANTOPRAZOLE 40 MG/PACK PACK GT SCH ×2 (09:59→21:17)
[2022-09-25] MEDS: ACETAMINOPHEN 650 MG/20 ML UDC- SA PATIENTS-PAIN ONLY GT SCH (09:59)
[2022-09-25] MEDS: ACIDOPHILUS/BULGARICUS 1 EACH TAB.CHEW GT SCH ×2 (09:59→21:17)
[2022-09-25] MEDS: METOCLOPRAMIDE HCL 10 MG/10 ML UDC GT SCH ×2 (09:59→21:17)
[2022-09-25] MEDS: CARVEDILOL 6.25 MG TABLET GT SCH ×2 (09:59→21:17)
[2022-09-25] MEDS: LACOSAMIDE ORAL SOLN 50 MG/5 ML UDC GT SCH ×2 (09:59→21:17)
[2022-09-25] MEDS: MULTIVIT W/MINERALS 1 TAB TABLET GT SCH (09:59)
[2022-09-25] MEDS: MODAFINIL 100 MG TABLET GT SCH (09:59)
[2022-09-25] MEDS: [UNRECOGNIZED DRUG - OTHER] TP SCH ×2 (09:59→21:18)
[2022-09-25 11:51] VITALS: BP 138/69
[2022-09-25] MEDS: GLUCERNA 1.2 1,000 ML BOTTLE GT SCH (14:51)
[2022-09-25 18:10] VITALS: BP 131/63
[2022-09-25 19:22] VITALS: BP 120/51
[2022-09-25] MEDS: ATORVASTATIN 40 MG TABLET GT SCH (21:18)
[2022-09-25] MEDS: INSULIN GLARGINE, 100 UNIT/ML CARTRIDGE SQ SCH (21:20)
[2022-09-26 00:06] VITALS: BP 129/68
[2022-09-26] MEDS: POLYVINYL ALCOHOL 15 ML BOTTLE EACHEYE SCH ×6 (01:00→20:36)
[2022-09-26] MEDS: ALBUTEROL FS 2.5 MG/0.5 ML VIAL.NEB NEB SCH ×4 (01:45→20:28)
[2022-09-26] MEDS: LEVOTHYROXINE SODIUM 75 MCG TABLET PO SCH (05:04)
[2022-09-26] MEDS: BLOOD SUGAR DIAGNOSTIC 1 EACH STRIP IN SCH ×3 (05:04→17:02)
[2022-09-26] MEDS: PROSOURCE / PROSTAT (PYXIS) 30 ML UDC GT SCH ×3 (05:04→17:02)
[2022-09-26] MEDS: INSULIN REGULAR, HUMAN 100 UNIT/ML 3 ML VIAL SQ PRN ×3 (05:06→17:03)
[2022-09-26 07:16] VITALS: BP 131/66
[2022-09-26] MEDS: DOCUSATE SODIUM LIQ 100 MG/10 ML UDC GT SCH ×3 (08:14→16:41)
[2022-09-26] MEDS: BUMETANIDE (1 MG) 1 MG TABLET GT SCH (08:14)
[2022-09-26] MEDS: CARVEDILOL 6.25 MG TABLET GT SCH ×2 (08:15→20:26)
[2022-09-26] MEDS: POTASSIUM CHLORIDE 20 MEQ POWDER PACKET GT SCH ×2 (08:16→16:41)
[2022-09-26] MEDS: ACIDOPHILUS/BULGARICUS 1 EACH TAB.CHEW GT SCH ×2 (08:17→20:26)
[2022-09-26] MEDS: MODAFINIL 100 MG TABLET GT SCH (08:17)
[2022-09-26] MEDS: PANTOPRAZOLE 40 MG/PACK PACK GT SCH ×2 (08:17→20:25)
[2022-09-26] MEDS: AMANTADINE SUSP 50 MG/5 ML UDC GT SCH (08:18)
[2022-09-26] MEDS: METOCLOPRAMIDE HCL 10 MG/10 ML UDC GT SCH ×2 (08:18→20:26)
[2022-09-26] MEDS: MULTIVIT W/MINERALS 1 TAB TABLET GT SCH (08:19)
[2022-09-26] MEDS: ACETAMINOPHEN 650 MG/20 ML UDC- SA PATIENTS-PAIN ONLY GT SCH (08:21)
[2022-09-26] MEDS: LACOSAMIDE ORAL SOLN 50 MG/5 ML UDC GT SCH ×2 (08:21→20:25)
[2022-09-26] MEDS: ASCORBIC ACID 500 MG TABLET GT SCH (08:21)
[2022-09-26] MEDS: METOLAZONE 2.5 MG TABLET GT SCH (08:22)
[2022-09-26] MEDS: NYSTATIN (PYXIS) 500,000 UNIT/5 ML ORAL.SUSP PO SCH ×4 (08:22→20:26)
[2022-09-26] MEDS: ZINC SULFATE 220 MG CAPSULE GT SCH (08:22)
[2022-09-26] MEDS: VITAMINS A AND D 56.7 GM TUBE TP SCH ×4 (08:24→20:27)
[2022-09-26] MEDS: HYDROGEN PEROXIDE 480 ML BOTTLE TP SCH ×2 (09:00→21:00)
[2022-09-26] MEDS: Z GUARD REMEDY 4 OZ OINT TP SCH ×2 (09:22→20:27)
[2022-09-26] MEDS: [UNRECOGNIZED DRUG - OTHER] TP SCH ×2 (09:22→20:27)
[2022-09-26] MEDS: DAKINS QUARTER STRENGTH (0.125%) 480 ML BOTTLE TOP SCH ×2 (09:22→20:27)
[2022-09-26] MEDS: RIVAROXABAN 10 MG TABLET PO SCH (09:22)
[2022-09-26] MEDS: COLLAGENASE 30 GM TUBE TP SCH ×2 (09:22→20:27)
[2022-09-26 12:24] VITALS: BP 101/51
[2022-09-26] MEDS: GLUCERNA 1.2 1,000 ML BOTTLE GT SCH (13:20)
[2022-09-26 18:56] VITALS: BP 133/60
[2022-09-26] MEDS: ATORVASTATIN 40 MG TABLET GT SCH (21:19)
[2022-09-26] MEDS: INSULIN GLARGINE, 100 UNIT/ML CARTRIDGE SQ SCH (21:20)
[2022-09-27 00:06] VITALS: BP 120/64
[2022-09-27] MEDS: PROSOURCE / PROSTAT (PYXIS) 30 ML UDC GT SCH ×4 (00:38→17:03)
[2022-09-27] MEDS: POLYVINYL ALCOHOL 15 ML BOTTLE EACHEYE SCH ×6 (00:38→20:07)
[2022-09-27] MEDS: BLOOD SUGAR DIAGNOSTIC 1 EACH STRIP IN SCH ×4 (00:38→17:08)
[2022-09-27] MEDS: INSULIN REGULAR, HUMAN 100 UNIT/ML 3 ML VIAL SQ PRN ×4 (00:39→17:10)
[2022-09-27] MEDS: ALBUTEROL FS 2.5 MG/0.5 ML VIAL.NEB NEB SCH ×4 (01:53→20:26)
[2022-09-27] MEDS: LEVOTHYROXINE SODIUM 75 MCG TABLET PO SCH (05:08)
[2022-09-27 07:23] VITALS: BP 128/60
[2022-09-27] MEDS: COLLAGENASE 30 GM TUBE TP SCH (09:00)
[2022-09-27] MEDS: BUMETANIDE (1 MG) 1 MG TABLET GT SCH (09:06)
[2022-09-27] MEDS: DOCUSATE SODIUM LIQ 100 MG/10 ML UDC GT SCH ×3 (09:08→17:02)
[2022-09-27] MEDS: CARVEDILOL 6.25 MG TABLET GT SCH ×2 (09:09→20:08)
[2022-09-27] MEDS: ACIDOPHILUS/BULGARICUS 1 EACH TAB.CHEW GT SCH ×2 (09:09→20:09)
[2022-09-27] MEDS: POTASSIUM CHLORIDE 20 MEQ POWDER PACKET GT SCH ×2 (09:09→17:02)
[2022-09-27] MEDS: METOCLOPRAMIDE HCL 10 MG/10 ML UDC GT SCH ×2 (09:10→20:10)
[2022-09-27] MEDS: MODAFINIL 100 MG TABLET GT SCH (09:10)
[2022-09-27] MEDS: PANTOPRAZOLE 40 MG/PACK PACK GT SCH ×2 (09:10→20:09)
[2022-09-27] MEDS: ASCORBIC ACID 500 MG TABLET GT SCH (09:11)
[2022-09-27] MEDS: ACETAMINOPHEN 650 MG/20 ML UDC- SA PATIENTS-PAIN ONLY GT SCH (09:11)
[2022-09-27] MEDS: MULTIVIT W/MINERALS 1 TAB TABLET GT SCH (09:11)
[2022-09-27] MEDS: AMANTADINE SUSP 50 MG/5 ML UDC GT SCH (09:11)
[2022-09-27] MEDS: LACOSAMIDE ORAL SOLN 50 MG/5 ML UDC GT SCH ×2 (09:11→20:10)
[2022-09-27] MEDS: ZINC SULFATE 220 MG CAPSULE GT SCH (09:12)
[2022-09-27] MEDS: NYSTATIN (PYXIS) 500,000 UNIT/5 ML ORAL.SUSP PO SCH ×4 (09:12→20:10)
[2022-09-27] MEDS: METOLAZONE 2.5 MG TABLET GT SCH (09:12)
[2022-09-27] MEDS: RIVAROXABAN 10 MG TABLET PO SCH (09:12)
[2022-09-27] MEDS: Z GUARD REMEDY 4 OZ OINT TP SCH (09:50)
[2022-09-27] MEDS: VITAMINS A AND D 56.7 GM TUBE TP SCH ×4 (09:50→20:11)
[2022-09-27] MEDS: [UNRECOGNIZED DRUG - OTHER] TP SCH ×2 (09:50→20:10)
[2022-09-27] MEDS: DAKINS QUARTER STRENGTH (0.125%) 480 ML BOTTLE TOP SCH (09:50)
[2022-09-27] MEDS: HYDROGEN PEROXIDE 480 ML BOTTLE TP SCH ×2 (09:51→20:10)
[2022-09-27 12:12] VITALS: BP 122/57
[2022-09-27] MEDS ORDERED: [UNRECOGNIZED DRUG - OTHER] TP PRN (14:00)
[2022-09-27] MEDS: GLUCERNA 1.2 1,000 ML BOTTLE GT SCH (16:56)
--- NOTE | 2022-09-27 17:00 | NUR ---
Santyl ointment being provided by pt's family. Charge nurse ordered Santyl ointment from [facility] and pt's son was already informed to pick it up.
--- NOTE | 2022-09-27 17:12 | NUR ---
Santyl ointment not available, family will provide and aware.
--- NOTE | 2022-09-27 17:44 | NUR ---
Seen by JAMA Fuchs today. Notified her of pt's elevated blood sugars. Pt receives Lantus insulin 30 units at bedtime. JAMA Fuchs ordered to also give Lantus insulin 10 units SC in the morning. Called pt's daughter Tana to inform her of new order but she did not answer.
--- NOTE | 2022-09-27 18:48 | NUR ---
Late entry for 09/21/22 Seen and examined by Dr Taylor. He reviewed pt's medications as well as CT scan of head and EEG results from [facility]. No new order at this time.
[2022-09-27 21:12] VITALS: BP 116/57
[2022-09-27] MEDS: ATORVASTATIN 40 MG TABLET GT SCH (21:21)
[2022-09-27] MEDS: INSULIN GLARGINE, 100 UNIT/ML CARTRIDGE SQ SCH (21:40)
[2022-09-28] MEDS: PROSOURCE / PROSTAT (PYXIS) 30 ML UDC GT SCH ×4 (00:40→17:38)
[2022-09-28] MEDS: POLYVINYL ALCOHOL 15 ML BOTTLE EACHEYE SCH ×6 (00:41→21:16)
[2022-09-28] MEDS: BLOOD SUGAR DIAGNOSTIC 1 EACH STRIP IN SCH ×5 (00:41→18:48)
[2022-09-28] MEDS: INSULIN REGULAR, HUMAN 100 UNIT/ML 3 ML VIAL SQ PRN ×5 (00:42→18:50)
[2022-09-28] MEDS: ALBUTEROL FS 2.5 MG/0.5 ML VIAL.NEB NEB SCH ×4 (01:31→19:54)
[2022-09-28] MEDS: LEVOTHYROXINE SODIUM 75 MCG TABLET PO SCH (05:40)
[2022-09-28 08:01] VITALS: BP 119/58
[2022-09-28] MEDS: BUMETANIDE (1 MG) 1 MG TABLET GT SCH (08:28)
[2022-09-28] MEDS: DOCUSATE SODIUM LIQ 100 MG/10 ML UDC GT SCH ×3 (08:28→17:38)
[2022-09-28] MEDS: CARVEDILOL 6.25 MG TABLET GT SCH ×2 (08:29→21:10)
[2022-09-28] MEDS: RIVAROXABAN 10 MG TABLET PO SCH (08:29)
[2022-09-28] MEDS: ZINC SULFATE 220 MG CAPSULE GT SCH (08:29)
[2022-09-28] MEDS: METOLAZONE 2.5 MG TABLET GT SCH (08:29)
[2022-09-28] MEDS: POTASSIUM CHLORIDE 20 MEQ POWDER PACKET GT SCH ×2 (08:29→17:38)
[2022-09-28] MEDS: ACETAMINOPHEN 650 MG/20 ML UDC- SA PATIENTS-PAIN ONLY GT SCH (08:29)
[2022-09-28] MEDS: METOCLOPRAMIDE HCL 10 MG/10 ML UDC GT SCH ×2 (08:29→21:11)
[2022-09-28] MEDS: PANTOPRAZOLE 40 MG/PACK PACK GT SCH ×2 (08:29→21:11)
[2022-09-28] MEDS: MODAFINIL 100 MG TABLET GT SCH (08:29)
[2022-09-28] MEDS: MULTIVIT W/MINERALS 1 TAB TABLET GT SCH (08:29)
[2022-09-28] MEDS: ASCORBIC ACID 500 MG TABLET GT SCH (08:29)
[2022-09-28] MEDS: LACOSAMIDE ORAL SOLN 50 MG/5 ML UDC GT SCH ×2 (08:29→21:12)
[2022-09-28] MEDS: AMANTADINE SUSP 50 MG/5 ML UDC GT SCH (08:29)
[2022-09-28] MEDS: ACIDOPHILUS/BULGARICUS 1 EACH TAB.CHEW GT SCH ×2 (08:29→21:10)
[2022-09-28] MEDS: NYSTATIN (PYXIS) 500,000 UNIT/5 ML ORAL.SUSP PO SCH ×4 (08:29→21:12)
[2022-09-28] MEDS: INSULIN GLARGINE, 100 UNIT/ML CARTRIDGE SQ SCH ×2 (08:30→21:13)
[2022-09-28] MEDS: HYDROGEN PEROXIDE 480 ML BOTTLE TP SCH ×2 (09:21→19:54)
[2022-09-28] MEDS: [UNRECOGNIZED DRUG - OTHER] TP SCH ×2 (09:53→21:12)
[2022-09-28] MEDS: VITAMINS A AND D 56.7 GM TUBE TP SCH ×4 (09:53→21:12)
[2022-09-28 09:55] VITALS: BP 119/58
[2022-09-28] MEDS: GLUCERNA 1.2 1,000 ML BOTTLE GT SCH (11:28)
[2022-09-28 13:30] VITALS: BP 107/58
[2022-09-28 17:00] VITALS: BP 112/68
--- NOTE | 2022-09-28 17:21 | NUR ---
Reminded pt's son Nagi to pickling machine operator Santyl ointment from [facility]. He said he will pick it up and bring it when he visits later tonight.
--- NOTE | 2022-09-28 17:22 | NUR ---
Late entry for 09/23/22 Ordered Santyl ointment from [facility] on [facility] . Will need to call [facility] again tomorrow to confirm if it is ready for sheepskin pickler.
--- NOTE | 2022-09-28 17:34 | NUR ---
Notified JAMA Fuchs that blood sugar was 412, blood sugar was rechecked and it was 384. Pt receives Lantus insulin 30 units q HS. She also received Lantus insulin 10 units this morning.
[2022-09-28] MEDS: ACETAMINOPHEN 650 MG/20.3 ML UDC GT PRN (17:40)
--- NOTE | 2022-09-28 18:15 | NUR ---
Pt was given regular insulin 10 units SC and blood sugar was rechecked. BS 374 now. Pt has been awake, no signs of hyperglycemia noted.
--- NOTE | 2022-09-28 18:25 | NUR ---
Left message for Dr Moreno that blood sugar was 412, blood sugar was rechecked and it was 384. Regular insulin 10 units SC was administered. Blood sugar was rechecked after 45 minutes and it is now 374. Also notified him that pt is on a mild sliding scale. Waiting for new orders.
--- NOTE | 2022-09-28 18:39 | NUR ---
JAMA Fuchs ordered to give an additional 10 units of regular insulin x 1 now, increase Lantus insulin from 30 to 35 units q HS, and do UA. Notified Dr Moreno of new orders from JAMA Bailey and he acknowledged them.
[2022-09-28] MEDS ORDERED: INSULIN REGULAR, HUMAN 100 UNIT/ML 3 ML VIAL SQ ONE (19:30)
[2022-09-28 20:00] VITALS: BP 114/67
[2022-09-28] MEDS: ATORVASTATIN 40 MG TABLET GT SCH (21:13)
--- NOTE | 2022-09-28 22:00 | NUR ---
RN NOTES Urine specimen collected and sent to lab.
[2022-09-29] MEDS: POLYVINYL ALCOHOL 15 ML BOTTLE EACHEYE SCH ×6 (00:46→21:48)
[2022-09-29] MEDS: PROSOURCE / PROSTAT (PYXIS) 30 ML UDC GT SCH ×5 (00:46→23:58)
[2022-09-29] MEDS: INSULIN REGULAR, HUMAN 100 UNIT/ML 3 ML VIAL SQ PRN ×4 (00:50→17:02)
[2022-09-29] MEDS: ALBUTEROL FS 2.5 MG/0.5 ML VIAL.NEB NEB SCH ×4 (01:33→19:48)
[2022-09-29 04:28] LABS: BILIRUBIN,URINE NEGATIVE (NEGATIVE); COLOR,URINE YELLOW (YELLOW); LEUKOCYTE ESTERASE ,URINE 3+ (NEGATIVE); NITRITE, URINE NEGATIVE (NEGATIVE); PROTEIN,URINE 1+ mg/dl (NEGATIVE); UGLUCOSE NEGATIVE (NEGATIVE); UROBILINOGEN,URINE 0.2 EU/dL (0.2)
[2022-09-29 04:37] LABS: PH,URINE >9.0 (5.0-8.0)
[2022-09-29 04:46] LABS: BACTERIA,URINE Few /HPF (None Seen); RBC,URINE 0-2 /HPF (0-2); SQUAMOUS EPITHELIAL CELL,UR Moderate /HPF (None Seen); URIC ACID CRYSTALS,URINE Moderate /HPF (None Seen)
[2022-09-29] MEDS: BLOOD SUGAR DIAGNOSTIC 1 EACH STRIP IN SCH ×4 (05:10→23:58)
[2022-09-29] MEDS: LEVOTHYROXINE SODIUM 75 MCG TABLET PO SCH (05:10)
[2022-09-29] MEDS: GLUCERNA 1.2 1,000 ML BOTTLE GT SCH (05:15)
[2022-09-29] MEDS: MULTIVIT W/MINERALS 1 TAB TABLET GT SCH (08:30)
[2022-09-29] MEDS: PANTOPRAZOLE 40 MG/PACK PACK GT SCH ×2 (08:30→21:48)
[2022-09-29] MEDS: BUMETANIDE (1 MG) 1 MG TABLET GT SCH (08:30)
[2022-09-29] MEDS: POTASSIUM CHLORIDE 20 MEQ POWDER PACKET GT SCH ×2 (08:30→17:00)
[2022-09-29] MEDS: CARVEDILOL 6.25 MG TABLET GT SCH ×2 (08:30→21:48)
[2022-09-29] MEDS: DOCUSATE SODIUM LIQ 100 MG/10 ML UDC GT SCH ×3 (08:30→17:00)
[2022-09-29] MEDS: MODAFINIL 100 MG TABLET GT SCH (08:30)
[2022-09-29] MEDS: ACIDOPHILUS/BULGARICUS 1 EACH TAB.CHEW GT SCH ×2 (08:30→21:48)
[2022-09-29] MEDS: AMANTADINE SUSP 50 MG/5 ML UDC GT SCH (08:30)
[2022-09-29] MEDS: METOCLOPRAMIDE HCL 10 MG/10 ML UDC GT SCH ×2 (08:30→21:48)
[2022-09-29] MEDS: METOLAZONE 2.5 MG TABLET GT SCH (08:31)
[2022-09-29] MEDS: ACETAMINOPHEN 650 MG/20 ML UDC- SA PATIENTS-PAIN ONLY GT SCH (08:31)
[2022-09-29] MEDS: NYSTATIN (PYXIS) 500,000 UNIT/5 ML ORAL.SUSP PO SCH ×4 (08:31→21:48)
[2022-09-29] MEDS: ASCORBIC ACID 500 MG TABLET GT SCH (08:31)
[2022-09-29] MEDS: ZINC SULFATE 220 MG CAPSULE GT SCH (08:31)
[2022-09-29] MEDS: LACOSAMIDE ORAL SOLN 50 MG/5 ML UDC GT SCH ×2 (08:31→21:48)
[2022-09-29] MEDS: RIVAROXABAN 10 MG TABLET PO SCH (08:32)
[2022-09-29] MEDS: INSULIN GLARGINE, 100 UNIT/ML CARTRIDGE SQ SCH ×2 (08:32→21:50)
[2022-09-29] MEDS: HYDROGEN PEROXIDE 480 ML BOTTLE TP SCH ×2 (09:05→19:48)
[2022-09-29] MEDS: [UNRECOGNIZED DRUG - OTHER] TP SCH ×2 (09:47→21:49)
[2022-09-29] MEDS: VITAMINS A AND D 56.7 GM TUBE TP SCH ×4 (09:47→21:49)
[2022-09-29 09:48] VITALS: BP 122/58
[2022-09-29 13:23] VITALS: BP 122/50
--- NOTE | 2022-09-29 16:46 | NUR ---
RECEIVED PATIENT ON MD ORDERED VENT SETTINGS. HAS A TRACH PORTEX 7 CUFFED. AIRWAY PATENT AND SECURE. INLINE HHN TXS QUAN WELL WITH NO SOB NOTED. AMBU BAG AND EMERGENCY TRACH AT THE BEDSIDE. VENT PLUGGED INTO RED OUTLET. ALARMS SET AND AUDIBLE. SMALL YELLOW THICK SECRETIONS NOTED.
[2022-09-29 17:00] VITALS: BP 124/56
[2022-09-29 20:00] VITALS: BP 116/60
[2022-09-29] MEDS: ATORVASTATIN 40 MG TABLET GT SCH (21:49)
[2022-09-30] MEDS: POLYVINYL ALCOHOL 15 ML BOTTLE EACHEYE SCH ×6 (00:01→21:35)
[2022-09-30] MEDS: ALBUTEROL FS 2.5 MG/0.5 ML VIAL.NEB NEB SCH ×4 (01:29→18:54)
[2022-09-30] MEDS: GLUCERNA 1.2 1,000 ML BOTTLE GT SCH ×2 (02:00→17:34)
[2022-09-30] MEDS: LEVOTHYROXINE SODIUM 75 MCG TABLET PO SCH (05:23)
[2022-09-30] MEDS: PROSOURCE / PROSTAT (PYXIS) 30 ML UDC GT SCH ×4 (05:23→23:59)
[2022-09-30] MEDS: BLOOD SUGAR DIAGNOSTIC 1 EACH STRIP IN SCH ×5 (05:23→23:59)
[2022-09-30] MEDS: INSULIN REGULAR, HUMAN 100 UNIT/ML 3 ML VIAL SQ PRN ×4 (05:25→17:52)
[2022-09-30 08:18] VITALS: BP 144/58
[2022-09-30] MEDS: AMANTADINE SUSP 50 MG/5 ML UDC GT SCH (08:18)
[2022-09-30] MEDS: METOCLOPRAMIDE HCL 10 MG/10 ML UDC GT SCH ×2 (08:18→21:35)
[2022-09-30] MEDS: DOCUSATE SODIUM LIQ 100 MG/10 ML UDC GT SCH ×3 (08:18→16:29)
[2022-09-30] MEDS: CARVEDILOL 6.25 MG TABLET GT SCH ×2 (08:18→21:35)
[2022-09-30] MEDS: PANTOPRAZOLE 40 MG/PACK PACK GT SCH ×2 (08:18→21:35)
[2022-09-30] MEDS: POTASSIUM CHLORIDE 20 MEQ POWDER PACKET GT SCH ×2 (08:18→16:29)
[2022-09-30] MEDS: ACIDOPHILUS/BULGARICUS 1 EACH TAB.CHEW GT SCH ×2 (08:18→21:35)
[2022-09-30] MEDS: MULTIVIT W/MINERALS 1 TAB TABLET GT SCH (08:18)
[2022-09-30] MEDS: MODAFINIL 100 MG TABLET GT SCH (08:18)
[2022-09-30] MEDS: BUMETANIDE (1 MG) 1 MG TABLET GT SCH (08:18)
[2022-09-30] MEDS: RIVAROXABAN 10 MG TABLET PO SCH (08:19)
[2022-09-30] MEDS: METOLAZONE 2.5 MG TABLET GT SCH (08:19)
[2022-09-30] MEDS: ASCORBIC ACID 500 MG TABLET GT SCH (08:19)
[2022-09-30] MEDS: NYSTATIN (PYXIS) 500,000 UNIT/5 ML ORAL.SUSP PO SCH ×4 (08:19→21:36)
[2022-09-30] MEDS: ZINC SULFATE 220 MG CAPSULE GT SCH (08:19)
[2022-09-30] MEDS: LACOSAMIDE ORAL SOLN 50 MG/5 ML UDC GT SCH ×2 (08:19→21:36)
[2022-09-30] MEDS: ACETAMINOPHEN 650 MG/20 ML UDC- SA PATIENTS-PAIN ONLY GT SCH (08:19)
[2022-09-30] MEDS: INSULIN GLARGINE, 100 UNIT/ML CARTRIDGE SQ SCH ×2 (08:20→21:37)
[2022-09-30] MEDS: HYDROGEN PEROXIDE 480 ML BOTTLE TP SCH ×2 (09:37→20:49)
[2022-09-30] MEDS: VITAMINS A AND D 56.7 GM TUBE TP SCH ×4 (09:53→21:36)
[2022-09-30] MEDS: [UNRECOGNIZED DRUG - OTHER] TP SCH ×2 (09:53→21:36)
--- NOTE | 2022-09-30 11:50 | NUR ---
Seen by JAMA Fuchs via telemedicine. Informed her that pt still has elevated blood sugars (300s). She ordered to increase Lantus insulin from 10 to 15 units SC q 9 am.
[2022-09-30 12:10] VITALS: BP 107/53
--- NOTE | 2022-09-30 15:19 | NUR ---
Facility Update: SUNDAY called the pt.'s son, Shantanu [phone] and notified him that, "A Sub-Acute employee tested positive for COVID-19 SO continues to following [facility] Department of Public Healths infection control guidelines. SO will initiate response testing and screening for symptoms of Residents and staff." SUNDAY attached updated visitation guidelines stating visitors who are not up to date with COVID vaccinations must wear N-95 Mask while visiting ptLayla Fournier expressed understanding and was agreeable to plan.
--- NOTE | 2022-09-30 15:36 | NUR ---
Records: SUNDAY called the pt.'s son, Shantanu [phone] and notified him that the neurologist wound like to obtain neurology records from [facility] for continuity of care her at [facility]. Shantanu is agreeable to signing authorization for disclosure of health information. SUNDAY emailed Shantanu at [email or web address]) the blank documents for Shantanu to sign. No demographic pt. information was exchanged over email. Shantanu stated that he will sign and email them back to SUNDAY.
--- NOTE | 2022-09-30 17:20 | NUR ---
Notified JAMA Fuchs that pt's blood sugar is 416, and 419 upon rechecking. Pt awake and appears comfortable. Regular insulin 15 units will be given per sliding scale.
[2022-09-30 17:54] VITALS: BP 122/58
[2022-09-30] MEDS ORDERED: DEXTROSE 50%-WATER 50 ML DISP.SYRIN IV PRN (18:00)
--- NOTE | 2022-09-30 18:45 | NUR ---
Notified Dr Moreno that blood sugar was 419, 15 units regular insulin was given and blood sugar was 428 upon rechecking it. Notified him also of new orders from JAMA Fuchs. He asked for recent blood sugar readings and sliding scale coverage.
[2022-09-30 19:36] VITALS: BP 120/53
--- NOTE | 2022-09-30 21:24 | NUR ---
BS 416 mg\dl Lantus 35 units SQ given ,patient awake ,no distress. Will monitor and re check BS.
[2022-09-30] MEDS: ATORVASTATIN 40 MG TABLET GT SCH (21:36)
[2022-10-01] MEDS: INSULIN REGULAR, HUMAN 100 UNIT/ML 3 ML VIAL SQ PRN ×5 (00:01→23:55)
[2022-10-01] MEDS: POLYVINYL ALCOHOL 15 ML BOTTLE EACHEYE SCH ×6 (00:02→21:10)
[2022-10-01 00:17] VITALS: BP 112/58
[2022-10-01] MEDS: ALBUTEROL FS 2.5 MG/0.5 ML VIAL.NEB NEB SCH ×4 (00:34→19:04)
--- NOTE | 2022-10-01 00:49 | NUR ---
Patient BS 420 mg\dl ,15 units of regular insulin given per sliding scale,BP 112\58 HR 70,no distress. HEARING EXAMINER Agnes notified of increase BS and ordered to monitor and do AM labs BMP and A1C.Will carry out orders.
[2022-10-01] MEDS: PROSOURCE / PROSTAT (PYXIS) 30 ML UDC GT SCH ×4 (05:45→23:53)
[2022-10-01] MEDS: BLOOD SUGAR DIAGNOSTIC 1 EACH STRIP IN SCH ×4 (05:45→23:53)
[2022-10-01] MEDS: LEVOTHYROXINE SODIUM 75 MCG TABLET PO SCH (05:46)
[2022-10-01 07:03] LABS: BASOPHILS % (AUTO) 0.1 % (0.0-2.0); EOSINOPHILS % (AUTO) 0.6 % (0.0-6.0); HEMATOCRIT 25 % (33-45); HEMOGLOBIN 7.5 g/dL (11.5-14.8); LYMPHOCYTES # (AUTO) 1.9 K/uL (0.8-4.8); LYMPHOCYTES % (AUTO) 8.3 % (20.0-44.0); MEAN CORPUSCULAR HGB CONC 31 g/dl (31.0-36.0); MEAN CORPUSCULAR VOLUME 105 fL (82-100); MONOCYTES # (AUTO) 1.3 K/uL (0.1-1.30); MONOCYTES % (AUTO) 5.8 % (2.0-12.0); NEUTROPHILS # (AUTO) 19.2 K/uL (1.8-8.9); NEUTROPHILS % (AUTO) 85.2 % (43.0-81.0); PLATELET COUNT (AUTO) 216 K/uL (150-450); RED BLOOD CELL COUNT(AUTO) 2.34 MIL/uL (4.0-5.2); WHITE BLOOD COUNT (AUTO) 22.5 K/uL (4.3-11.0)
[2022-10-01 07:42] LABS: CALCIUM, SERUM 9.4 mg/dL (8.5-10.1); CARBON DIOXIDE 29 mmol/L (21-32); CHLORIDE 125 mmol/L (98-107); CREATININE 1.6 mg/dL (0.6-1.3); POTASSIUM 4.5 mmol/L (3.5-5.1)
[2022-10-01 07:46] VITALS: BP 117/51
--- NOTE | 2022-10-01 08:21 | NUR ---
CBC result relayed to SANDAL PARTS ASSEMBLER Roldan Schneider, gave order to do CXR, urinalysis, urine culture, carried out. Resident awake, no s/s of distress, appears comfortable. VS BP 117/51, HR- 73, Temp. 98.2, RR- 12. Will continue to monitor.
[2022-10-01 08:26] LABS: SODIUM SERUM 165 mmol/L (136-145)
[2022-10-01 08:27] LABS: GLUCOSE 448 mg/dL (74-106); UREA NITROGEN, BLOOD 171 mg/dL (7-18)
[2022-10-01] MEDS: BUMETANIDE (1 MG) 1 MG TABLET GT SCH (08:35)
[2022-10-01] MEDS: DOCUSATE SODIUM LIQ 100 MG/10 ML UDC GT SCH ×3 (08:35→17:03)
[2022-10-01] MEDS: PANTOPRAZOLE 40 MG/PACK PACK GT SCH ×2 (08:36→21:11)
[2022-10-01] MEDS: POTASSIUM CHLORIDE 20 MEQ POWDER PACKET GT SCH ×2 (08:36→17:03)
[2022-10-01] MEDS: ACIDOPHILUS/BULGARICUS 1 EACH TAB.CHEW GT SCH ×2 (08:36→21:11)
[2022-10-01] MEDS: MODAFINIL 100 MG TABLET GT SCH (08:36)
[2022-10-01] MEDS: CARVEDILOL 6.25 MG TABLET GT SCH ×2 (08:36→21:11)
[2022-10-01] MEDS: METOCLOPRAMIDE HCL 10 MG/10 ML UDC GT SCH ×2 (08:37→21:11)
[2022-10-01] MEDS: AMANTADINE SUSP 50 MG/5 ML UDC GT SCH (08:37)
[2022-10-01] MEDS: MULTIVIT W/MINERALS 1 TAB TABLET GT SCH (08:37)
[2022-10-01] MEDS: ACETAMINOPHEN 650 MG/20 ML UDC- SA PATIENTS-PAIN ONLY GT SCH (08:37)
[2022-10-01] MEDS: ASCORBIC ACID 500 MG TABLET GT SCH (08:38)
[2022-10-01] MEDS: ZINC SULFATE 220 MG CAPSULE GT SCH (08:38)
[2022-10-01] MEDS: NYSTATIN (PYXIS) 500,000 UNIT/5 ML ORAL.SUSP PO SCH ×4 (08:38→21:11)
[2022-10-01] MEDS: LACOSAMIDE ORAL SOLN 50 MG/5 ML UDC GT SCH ×2 (08:38→21:11)
[2022-10-01] MEDS: METOLAZONE 2.5 MG TABLET GT SCH (08:38)
[2022-10-01] MEDS: RIVAROXABAN 10 MG TABLET PO SCH (08:39)
--- NOTE | 2022-10-01 09:01 | NUR ---
Relayed CBC, BMP result to Dr. Moreno, gave order to start IV hydration 1/2 NS at 80 cc/hr, water flush via GT 200 cc every 4 hrs.Informed him also about JAMA Schneider new orders. Resident awake, no s/s of distress, appears comfortable. VS BP 117/51, HR- 73, Temp. 98.2, RR- 12. Will continue to monitor.
[2022-10-01] MEDS: INSULIN GLARGINE, 100 UNIT/ML CARTRIDGE SQ SCH ×2 (09:04→21:27)
[2022-10-01] MEDS: [UNRECOGNIZED DRUG - OTHER] TP SCH ×2 (09:19→21:12)
[2022-10-01] MEDS: VITAMINS A AND D 56.7 GM TUBE TP SCH ×4 (09:19→21:12)
[2022-10-01] MEDS: HYDROGEN PEROXIDE 480 ML BOTTLE TP SCH ×2 (09:22→20:39)
[2022-10-01] MEDS ORDERED: IV NS 0.9% 1,000 ML IV PRN (09:30)
[2022-10-01] MEDS: IV 1/2NS 1000 ML 1,000 ML IV PRN (12:00)
[2022-10-01] MEDS: GLUCERNA 1.2 1,000 ML BOTTLE GT SCH (12:40)
[2022-10-01 13:45] LABS: BAND % (MANUAL) 2 % (0.0-5.0); LYMPHOCYTES % (MANUAL) 6 % (16-48); MONOCYTES % (MANUAL) 6 % (0-11.0); NEUTROPHILS % (MANUAL) 86 (42-76)
--- NOTE | 2022-10-01 13:49 | NUR ---
Dr. Moreno gave order to refer patient to Dr. Chen for nephro consult. Left a message to Dr. Chen to come evaluate the patient d/t elevated BUN, Creatinine. Will follow up.
[2022-10-01 14:25] VITALS: BP 105/45
--- NOTE | 2022-10-01 17:00 | NUR ---
Chest X-ray result relayed to JAMA Schneider, no new order given.
[2022-10-01 17:17] VITALS: BP 108/41
--- NOTE | 2022-10-01 19:30 | NUR ---
Patient seen by Carlos Grimes NP with new orders, Meropenem 500 mg every 12 hours ,Vancomycin pharmacy to dose, wound culture sacral, blood culture x 2. midline insertion,supervisory geographer notified. Will continue to monitor and carry out orders.
--- NOTE | 2022-10-01 19:37 | NUR ---
Spoke with daughter Tana gave updates on patient's recent orders, she said she wants to be informed once culture results are available. Appreciated the call.
[2022-10-01 19:41] VITALS: BP 126/56
[2022-10-01] MEDS: MEROPENEM 500 MG in IV NS 0.9% 50 ML IV SCH (20:30)
[2022-10-01] MEDS ORDERED: VANCOMYCIN 1 GM in IV D5W 250 ML IV ONE (21:00)
[2022-10-01] MEDS: ATORVASTATIN 40 MG TABLET GT SCH (21:12)
[2022-10-02 00:29] VITALS: BP 131/56
[2022-10-02] MEDS: ALBUTEROL FS 2.5 MG/0.5 ML VIAL.NEB NEB SCH ×3 (00:51→13:38)
[2022-10-02] MEDS: POLYVINYL ALCOHOL 15 ML BOTTLE EACHEYE SCH ×5 (01:25→17:31)
[2022-10-02] MEDS: IV 1/2NS 1000 ML 1,000 ML IV PRN ×2 (04:28→15:00)
[2022-10-02] MEDS: PROSOURCE / PROSTAT (PYXIS) 30 ML UDC GT SCH ×3 (05:19→17:19)
[2022-10-02] MEDS: LEVOTHYROXINE SODIUM 75 MCG TABLET PO SCH (05:19)
[2022-10-02] MEDS: BLOOD SUGAR DIAGNOSTIC 1 EACH STRIP IN SCH ×3 (05:31→17:19)
[2022-10-02] MEDS: GLUCERNA 1.2 1,000 ML BOTTLE GT SCH (06:35)
[2022-10-02 07:58] LABS: CALCIUM, SERUM 8.6 mg/dL (8.5-10.1); CARBON DIOXIDE 27 mmol/L (21-32); CHLORIDE 123 mmol/L (98-107); CREATININE 1.5 mg/dL (0.6-1.3); GLUCOSE 304 mg/dL (74-106); POTASSIUM 4.4 mmol/L (3.5-5.1)
[2022-10-02 08:18] VITALS: BP 111/50
[2022-10-02] MEDS: MEROPENEM 500 MG in IV NS 0.9% 50 ML IV SCH (08:26)
[2022-10-02] MEDS: ACIDOPHILUS/BULGARICUS 1 EACH TAB.CHEW GT SCH (08:47)
[2022-10-02] MEDS: POTASSIUM CHLORIDE 20 MEQ POWDER PACKET GT SCH ×2 (08:47→17:31)
[2022-10-02] MEDS: BUMETANIDE (1 MG) 1 MG TABLET GT SCH (08:47)
[2022-10-02] MEDS: CARVEDILOL 6.25 MG TABLET GT SCH (08:47)
[2022-10-02] MEDS: DOCUSATE SODIUM LIQ 100 MG/10 ML UDC GT SCH ×3 (08:47→17:31)
[2022-10-02] MEDS: AMANTADINE SUSP 50 MG/5 ML UDC GT SCH (08:48)
[2022-10-02] MEDS: METOCLOPRAMIDE HCL 10 MG/10 ML UDC GT SCH (08:48)
[2022-10-02] MEDS: MULTIVIT W/MINERALS 1 TAB TABLET GT SCH (08:48)
[2022-10-02] MEDS: NYSTATIN (PYXIS) 500,000 UNIT/5 ML ORAL.SUSP PO SCH ×3 (08:48→17:31)
[2022-10-02] MEDS: METOLAZONE 2.5 MG TABLET GT SCH (08:48)
[2022-10-02] MEDS: RIVAROXABAN 10 MG TABLET PO SCH (08:48)
[2022-10-02] MEDS: ASCORBIC ACID 500 MG TABLET GT SCH (08:48)
[2022-10-02] MEDS: ACETAMINOPHEN 650 MG/20 ML UDC- SA PATIENTS-PAIN ONLY GT SCH (08:48)
[2022-10-02] MEDS: ZINC SULFATE 220 MG CAPSULE GT SCH (08:48)
[2022-10-02] MEDS: LACOSAMIDE ORAL SOLN 50 MG/5 ML UDC GT SCH (08:48)
[2022-10-02] MEDS: MODAFINIL 100 MG TABLET GT SCH (08:48)
[2022-10-02] MEDS: PANTOPRAZOLE 40 MG/PACK PACK GT SCH (08:48)
[2022-10-02] MEDS: VITAMINS A AND D 56.7 GM TUBE TP SCH ×2 (08:49)
[2022-10-02] MEDS: [UNRECOGNIZED DRUG - OTHER] TP SCH (08:49)
[2022-10-02] MEDS: INSULIN GLARGINE, 100 UNIT/ML CARTRIDGE SQ SCH (08:49)
[2022-10-02 08:50] LABS: SODIUM SERUM 161 mmol/L (136-145)
[2022-10-02 08:51] LABS: UREA NITROGEN, BLOOD 169 mg/dL (7-18)
--- NOTE | 2022-10-02 08:57 | NUR ---
Notified Dr. Chen of renal consult per Dr. Moreno d/t elevated Na, BUN. Relayed BMP results today: Na 161, BUN 169, Crea 1.5. Updated Dr. Chen on new orders including GT flushing and IV 1/2 NS as ordered by Dr. Moreno. Order obtained for kidney and bladder ultrasound, urinalysis, urine Na, urine creatinine. MD requested to have nurse call him once results available. Will continue to follow up.
[2022-10-02] MEDS: HYDROGEN PEROXIDE 480 ML BOTTLE TP SCH (09:23)
--- NOTE | 2022-10-02 09:33 | NUR ---
Excrement and urin in PT's bed, not able to do the US Kidney exam. RNLauro informed. US exam will be done after PT'S bed gets changed and cleaned
[2022-10-02] MEDS: INSULIN REGULAR, HUMAN 100 UNIT/ML 3 ML VIAL SQ PRN ×2 (11:28→17:20)
[2022-10-02] MEDS ORDERED: INSULIN GLARGINE, 100 UNIT/ML CARTRIDGE SQ SCH ×2 (12:19→12:29)
[2022-10-02] MEDS ORDERED: DAKINS QUARTER STRENGTH (0.125%) 480 ML BOTTLE TOP PRN (13:00)
[2022-10-02 13:15] VITALS: BP 96/40
--- NOTE | 2022-10-02 16:00 | NUR ---
Pt's blood pressure low 89/39, HR 66. Rechecked multiple times but results SBP 90 or less. Pt awake, responds to tactile stimuli. No distress noted. Temp 98.0, RR 12. Currently on IV 1/2 NS at 80cc/hr. BMP results this AM relayed to Dr. Moreno as well. Order obtained to transfer pt to ER.
--- NOTE | 2022-10-02 17:10 | NUR ---
Faxed pt's information and transfer order to ER admitting dept. Called pt's daughter Tana, notified her of transfer order and updated her of pt's condition. Tana appreciative of call.
--- NOTE | 2022-10-02 17:20 | NUR ---
Called ER dept, report given to Pollo.
[2022-10-02 17:50] VITALS: BP 96/42
--- NOTE | 2022-10-02 18:00 | NUR ---
Transferred pt to ER bed 8. VS 96/42, HR 62, RR 12, Temp 98.0. Pt awake, in no distress noted. Report given to Pollo. Pt's daughter Tana notified via voicemail that pt is transferred to ER already.
[2022-10-02] MEDS ORDERED: DAKINS QUARTER STRENGTH (0.125%) 480 ML BOTTLE TOP SCH (21:00)
[2022-10-02] MEDS ORDERED: VANCOMYCIN 500 MG in IV D5W 100 ML IV SCH (21:00)
[2022-10-03] MEDS ORDERED: ALLA266C2 TP (08:59)
[2022-10-03] MEDS ORDERED: ACET650S26 GT (08:59)
[2022-10-03] MEDS ORDERED: ZINC50TA69 GT (08:59)
[2022-10-03] MEDS ORDERED: AMIN30LI2 GT (08:59)
[2022-10-03] MEDS ORDERED: DEXT50DI8 IV (08:59)
[2022-10-03] MEDS ORDERED: COLL30OI TP (08:59)
[2022-10-03] MEDS ORDERED: NYST5ORA PO (08:59)
[2022-10-03] MEDS ORDERED: POTA20PA3 GT (08:59)
[2022-10-03] MEDS ORDERED: INSU100V7 SQ (08:59)
[2022-10-03] MEDS ORDERED: DOCU50LI GT (08:59)
[2022-10-03] MEDS ORDERED: PANT40SU2 GT (08:59)
[2022-10-03] MEDS ORDERED: POLY15DR40 EACHEYE (08:59)
[2022-10-03] MEDS ORDERED: HYDR-4209 TD (08:59)
[2022-10-03 09:07] LABS: CALCIUM, SERUM 7.9 mg/dL (8.5-10.1); CREATININE 1.3 mg/dL (0.6-1.3); POTASSIUM 3.9 mmol/L (3.5-5.1)
[2022-10-07] MEDS ORDERED: MERO500V23 IV (13:07)
[2022-10-07] MEDS ORDERED: VANC1VIA34 XX (13:07)
--- NOTE | 2022-10-07 16:25 | NUR ---
Pt readmitted from [facility] with diagnoses of chronic respiratory failure, ventilator dependent, GT, sepsis, chronic encephalopathy, CAD, DM, permanent pacemaker, hypothyroidism, hyperlipidemia, chronic anemia, carcinoma hemangioma. Pt awake, on mechanical ventilator with setting of AC 12 VT 400 FiO2 25% PEEP +5, has trach Portex #7. Pt on GT feeding Glucerna 1.2 at 65 mL/hr. HOB elevated to prevent aspiration. Pt on Meropenem and Vancomycin IV for another 11 days for sepsis. Body assessment done. On contact isolation for ESBL wound, MDRO sputum, ESBL urine. Cleaned and made pt comfortable in bed. Call light within easy reach. Verified orders with Dr Moreno. Notified pt's daughter that she is back in Subacute.
[2022-10-07 18:55] VITALS: BP 135/57
[2022-10-07] MEDS ORDERED: VANCOMYCIN 500 MG in IV D5W 100ml IV SCH (18:57)
[2022-10-07] MEDS ORDERED: MEROPENEM 500 MG in IV NS 0.9% 50 ML IV SCH (18:57)
[2022-10-07] MEDS ORDERED: CHLORHEXIDINE GLUCONATE 15 ML UDC MM SCH (18:57)
--- NOTE | 2022-10-07 18:59 | NUR ---
Notified Dr Moreno that pt was on 1/2 NS at 125 mL/hr IV when she was in [facility] prior to being transferred to Subacute, but there is no order to continue it. Dr Moreno said not to continue it for now and do CBC BMP in AM.
--- NOTE | 2022-10-07 19:07 | NUR ---
[facility] Covid antigent test was done and result came back negative.
--- NOTE | 2022-10-07 19:25 | NUR ---
Left voicemail to daughter Gloria to notified her patient is back to Sub acute unit.
[2022-10-07] MEDS ORDERED: Z GUARD REMEDY 2 OZ OINT TP PRN (19:30)
[2022-10-07] MEDS: ALBUTEROL FS 2.5 MG/0.5 ML VIAL.NEB NEB SCH (19:37)
[2022-10-07] MEDS: IPRATROPIUM NEB FS 0.5 MG/2.5 ML AMPUL.NEB NEB SCH (19:37)
[2022-10-07] MEDS: HYDROGEN PEROXIDE 480 ML BOTTLE TP SCH (19:38)
[2022-10-07] MEDS: MEROPENEM 500 MG in IV NS 0.9% 50 ML IV SCH (20:00)
--- NOTE | 2022-10-07 20:31 | NUR ---
Received a return call from Gloria (daughter) made aware of her mother is back to the unit and will continue all hers medications.
[2022-10-07] MEDS: NYSTATIN (PYXIS) 500,000 UNIT/5 ML ORAL.SUSP PO SCH (21:00)
[2022-10-07] MEDS: ACIDOPHILUS/BULGARICUS 1 EACH TAB.CHEW GT SCH (21:00)
[2022-10-07] MEDS: [UNRECOGNIZED DRUG - OTHER] TP SCH (21:00)
[2022-10-07] MEDS: VANCOMYCIN 500 MG in IV D5W 100ml IV SCH (21:00)
[2022-10-07] MEDS: ATORVASTATIN 40 MG TABLET GT SCH (21:35)
[2022-10-07] MEDS: INSULIN GLARGINE, 100 UNIT/ML CARTRIDGE SQ SCH (21:35)
[2022-10-07] MEDS: PANTOPRAZOLE 40 MG/PACK PACK GT SCH (21:36)
[2022-10-07] MEDS: METOCLOPRAMIDE HCL 10 MG/10 ML UDC GT SCH (21:36)
[2022-10-07] MEDS: COLLAGENASE 30 GM TUBE TP SCH (21:37)
[2022-10-07] MEDS: LACOSAMIDE ORAL SOLN 50 MG/5 ML UDC GT SCH (21:37)
[2022-10-07] MEDS: ZINC OXIDE 30 GM TUBE TP SCH ×2 (21:38)
[2022-10-07] MEDS: NEOMY SULF/BACITRAC ZN/POLY 15 GM TUBE TP SCH (21:38)
[2022-10-07] MEDS: Z GUARD REMEDY 2 OZ OINT TP SCH (21:38)
[2022-10-07] MEDS: PROSOURCE / PROSTAT (PYXIS) 30 ML UDC GT SCH (23:04)
[2022-10-07] MEDS: BLOOD SUGAR DIAGNOSTIC 1 EACH STRIP IN SCH (23:24)
[2022-10-07] MEDS: INSULIN REGULAR, HUMAN 100 UNIT/ML 3 ML VIAL SQ PRN (23:26)
[2022-10-07 23:54] VITALS: BP 110/74
[2022-10-08] MEDS: POLYVINYL ALCOHOL 15 ML BOTTLE EACHEYE SCH ×6 (00:05→20:50)
[2022-10-08] MEDS: IPRATROPIUM NEB FS 0.5 MG/2.5 ML AMPUL.NEB NEB SCH ×5 (01:37→19:30)
[2022-10-08] MEDS: ALBUTEROL FS 2.5 MG/0.5 ML VIAL.NEB NEB SCH ×4 (01:37→19:30)
[2022-10-08 05:15] VITALS: BP 152/68
[2022-10-08] MEDS: LEVOTHYROXINE SODIUM 75 MCG TABLET PO SCH (05:24)
[2022-10-08] MEDS: BLOOD SUGAR DIAGNOSTIC 1 EACH STRIP IN SCH ×4 (05:25→23:12)
[2022-10-08] MEDS: PROSOURCE / PROSTAT (PYXIS) 30 ML UDC GT SCH ×4 (05:25→23:12)
[2022-10-08] MEDS: INSULIN REGULAR, HUMAN 100 UNIT/ML 3 ML VIAL SQ PRN ×4 (05:26→23:13)
[2022-10-08 07:27] LABS: BASOPHILS % (AUTO) 0.3 % (0.0-2.0); EOSINOPHILS % (AUTO) 1.9 % (0.0-6.0); HEMATOCRIT 33 % (33-45); HEMOGLOBIN 10.2 g/dL (11.5-14.8); LYMPHOCYTES # (AUTO) 1.4 K/uL (0.8-4.8); LYMPHOCYTES % (AUTO) 12.4 % (20.0-44.0); MEAN CORPUSCULAR HGB CONC 31 g/dl (31.0-36.0); MEAN CORPUSCULAR VOLUME 101 fL (82-100); MONOCYTES # (AUTO) 0.7 K/uL (0.1-1.30); MONOCYTES % (AUTO) 6.3 % (2.0-12.0); NEUTROPHILS # (AUTO) 9.1 K/uL (1.8-8.9); NEUTROPHILS % (AUTO) 79.1 % (43.0-81.0); PLATELET COUNT (AUTO) 138 K/uL (150-450); RED BLOOD CELL COUNT(AUTO) 3.25 MIL/uL (4.0-5.2); WHITE BLOOD COUNT (AUTO) 11.5 K/uL (4.3-11.0)
[2022-10-08] MEDS ORDERED: BETHANECHOL CHLORIDE (25 MG) 25 MG TABLET GT PRN (07:30)
[2022-10-08] MEDS ORDERED: HYDROCODONE/APAP 5/325MG TABLET PO PRN (07:30)
[2022-10-08] MEDS ORDERED: ACETAMINOPHEN 650 MG/20.3 ML UDC GT PRN (07:30)
[2022-10-08] MEDS ORDERED: DEXTROSE 50%-WATER 50 ML DISP.SYRIN IV PRN (07:30)
[2022-10-08] MEDS ORDERED: hydrALAZINE HCL 10 MG TABLET GT PRN (07:30)
[2022-10-08 07:40] VITALS: BP 146/63
[2022-10-08 07:46] LABS: CALCIUM, SERUM 7.5 mg/dL (8.5-10.1); CARBON DIOXIDE 21 mmol/L (21-32); CHLORIDE 113 mmol/L (98-107); CREATININE 0.5 mg/dL (0.6-1.3); GLUCOSE 182 mg/dL (74-106); POTASSIUM 3.4 mmol/L (3.5-5.1); SODIUM SERUM 142 mmol/L (136-145); UREA NITROGEN, BLOOD 35 mg/dL (7-18)
[2022-10-08] MEDS: MEROPENEM 500 MG in IV NS 0.9% 50 ML IV SCH ×2 (08:52→20:05)
[2022-10-08] MEDS: HYDROGEN PEROXIDE 480 ML BOTTLE TP SCH ×2 (09:36→21:00)
[2022-10-08] MEDS: BUMETANIDE (1 MG) 1 MG TABLET GT SCH (09:38)
[2022-10-08] MEDS: DOCUSATE SODIUM LIQ 100 MG/10 ML UDC GT SCH ×3 (09:38→16:42)
[2022-10-08] MEDS: ACETAMINOPHEN 650 MG/20 ML UDC- SA PATIENTS-PAIN ONLY GT SCH (09:39)
[2022-10-08] MEDS: POTASSIUM CHLORIDE 20 MEQ POWDER PACKET GT SCH ×2 (09:39→16:42)
[2022-10-08] MEDS: AMANTADINE SUSP 50 MG/5 ML UDC GT SCH (09:39)
[2022-10-08] MEDS: ACIDOPHILUS/BULGARICUS 1 EACH TAB.CHEW GT SCH ×2 (09:39→20:50)
[2022-10-08] MEDS: MODAFINIL 100 MG TABLET GT SCH (09:39)
[2022-10-08] MEDS: METOCLOPRAMIDE HCL 10 MG/10 ML UDC GT SCH ×2 (09:39→20:51)
[2022-10-08] MEDS: PANTOPRAZOLE 40 MG/PACK PACK GT SCH ×2 (09:39→20:50)
[2022-10-08] MEDS: MULTIVIT W/MINERALS 1 TAB TABLET GT SCH (09:39)
[2022-10-08] MEDS: CARVEDILOL 6.25 MG TABLET GT SCH ×2 (09:39→20:50)
[2022-10-08] MEDS: METOLAZONE 2.5 MG TABLET GT SCH (09:40)
[2022-10-08] MEDS: ASCORBIC ACID 500 MG TABLET GT SCH (09:40)
[2022-10-08] MEDS: ZINC SULFATE 220 MG CAPSULE GT SCH (09:40)
[2022-10-08] MEDS: CHLORHEXIDINE GLUCONATE 15 ML UDC MM SCH ×2 (09:40→20:51)
[2022-10-08] MEDS: RIVAROXABAN 10 MG TABLET PO SCH (09:41)
[2022-10-08] MEDS: NYSTATIN (PYXIS) 500,000 UNIT/5 ML ORAL.SUSP PO SCH ×4 (09:47→20:51)
[2022-10-08] MEDS: LACOSAMIDE ORAL SOLN 50 MG/5 ML UDC GT SCH ×2 (09:47→20:51)
[2022-10-08] MEDS: INSULIN GLARGINE, 100 UNIT/ML CARTRIDGE SQ SCH ×2 (09:54→21:12)
[2022-10-08] MEDS: DAKINS QUARTER STRENGTH (0.125%) 480 ML BOTTLE TOP SCH ×2 (11:00→20:51)
[2022-10-08] MEDS: [UNRECOGNIZED DRUG - OTHER] TP SCH ×2 (11:00→20:51)
[2022-10-08] MEDS: GLUCERNA 1.2 1,000 ML BOTTLE GT SCH (12:25)
[2022-10-08 12:40] VITALS: BP 124/66
[2022-10-08 19:13] VITALS: BP 119/55
[2022-10-08] MEDS: ZINC OXIDE 30 GM TUBE TP SCH ×2 (20:51)
[2022-10-08] MEDS: NEOMY SULF/BACITRAC ZN/POLY 15 GM TUBE TP SCH (20:51)
[2022-10-08] MEDS: Z GUARD REMEDY 2 OZ OINT TP SCH (20:51)
[2022-10-08] MEDS: COLLAGENASE 30 GM TUBE TP SCH (20:51)
[2022-10-08] MEDS: ATORVASTATIN 40 MG TABLET GT SCH (21:01)
--- NOTE | 2022-10-08 21:19 | NUR ---
VANCO TROUGH 13 AT 20:00, ON VANCOMYCIN 500 MG DAILY, PER PHARMACY AFTER HOURS, GIVE SAME DOSE AND NOTE LEFT TO IN HOUSE PHARMACY IF THERE IS A NEED TO CHANGE DOSE.
--- NOTE | 2022-10-08 21:20 | NUR ---
COVID PCR TEST SUBMITTED TO LAB AT 20:53
[2022-10-08] MEDS: VANCOMYCIN 500 MG in IV D5W 100ml IV SCH (22:28)
[2022-10-08 23:29] VITALS: BP 116/54
[2022-10-09] MEDS: POLYVINYL ALCOHOL 15 ML BOTTLE EACHEYE SCH ×6 (00:17→21:17)
[2022-10-09] MEDS: ALBUTEROL FS 2.5 MG/0.5 ML VIAL.NEB NEB SCH ×4 (00:36→19:42)
[2022-10-09] MEDS: IPRATROPIUM NEB FS 0.5 MG/2.5 ML AMPUL.NEB NEB SCH ×4 (00:36→19:42)
--- NOTE | 2022-10-09 01:32 | NUR ---
Pt comfortably sleeping at this time, pm care / wound tx tolerated. No s/sx of resp distress noted. Will cont to monitor and anticipate needs.
[2022-10-09] MEDS: GLUCERNA 1.2 1,000 ML BOTTLE GT SCH (04:29)
[2022-10-09 04:39] VITALS: BP 124/63
[2022-10-09] MEDS: PROSOURCE / PROSTAT (PYXIS) 30 ML UDC GT SCH ×3 (05:06→17:40)
[2022-10-09] MEDS: BLOOD SUGAR DIAGNOSTIC 1 EACH STRIP IN SCH ×3 (05:06→17:40)
[2022-10-09] MEDS: INSULIN REGULAR, HUMAN 100 UNIT/ML 3 ML VIAL SQ PRN ×4 (05:06→23:53)
[2022-10-09] MEDS: LEVOTHYROXINE SODIUM 75 MCG TABLET PO SCH (05:06)
[2022-10-09 07:51] VITALS: BP 127/55
[2022-10-09] MEDS: INSULIN GLARGINE, 100 UNIT/ML CARTRIDGE SQ SCH ×2 (09:00→22:00)
[2022-10-09] MEDS: PANTOPRAZOLE 40 MG/PACK PACK GT SCH ×2 (09:00→21:17)
[2022-10-09] MEDS: MEROPENEM 500 MG in IV NS 0.9% 50 ML IV SCH ×2 (09:28→20:11)
[2022-10-09] MEDS: HYDROGEN PEROXIDE 480 ML BOTTLE TP SCH ×2 (09:29→19:42)
[2022-10-09] MEDS: DOCUSATE SODIUM LIQ 100 MG/10 ML UDC GT SCH ×3 (09:52→17:40)
[2022-10-09] MEDS: BUMETANIDE (1 MG) 1 MG TABLET GT SCH (09:52)
[2022-10-09] MEDS: METOLAZONE 2.5 MG TABLET GT SCH (09:53)
[2022-10-09] MEDS: ASCORBIC ACID 500 MG TABLET GT SCH (09:53)
[2022-10-09] MEDS: MODAFINIL 100 MG TABLET GT SCH (09:53)
[2022-10-09] MEDS: ACIDOPHILUS/BULGARICUS 1 EACH TAB.CHEW GT SCH ×2 (09:53→21:17)
[2022-10-09] MEDS: AMANTADINE SUSP 50 MG/5 ML UDC GT SCH (09:53)
[2022-10-09] MEDS: POTASSIUM CHLORIDE 20 MEQ POWDER PACKET GT SCH ×2 (09:53→17:40)
[2022-10-09] MEDS: ACETAMINOPHEN 650 MG/20 ML UDC- SA PATIENTS-PAIN ONLY GT SCH (09:53)
[2022-10-09] MEDS: CARVEDILOL 6.25 MG TABLET GT SCH ×2 (09:53→21:17)
[2022-10-09] MEDS: MULTIVIT W/MINERALS 1 TAB TABLET GT SCH (09:53)
[2022-10-09] MEDS: METOCLOPRAMIDE HCL 10 MG/10 ML UDC GT SCH ×2 (09:53→21:17)
[2022-10-09] MEDS: LACOSAMIDE ORAL SOLN 50 MG/5 ML UDC GT SCH ×2 (09:53→21:17)
[2022-10-09] MEDS: RIVAROXABAN 10 MG TABLET PO SCH (09:54)
[2022-10-09] MEDS: ZINC SULFATE 220 MG CAPSULE GT SCH (09:54)
[2022-10-09] MEDS: CHLORHEXIDINE GLUCONATE 15 ML UDC MM SCH ×2 (09:54→21:18)
[2022-10-09] MEDS: NYSTATIN (PYXIS) 500,000 UNIT/5 ML ORAL.SUSP PO SCH ×4 (09:54→21:18)
[2022-10-09] MEDS: DAKINS QUARTER STRENGTH (0.125%) 480 ML BOTTLE TOP SCH ×2 (10:00→21:00)
[2022-10-09] MEDS: NEOMY SULF/BACITRAC ZN/POLY 15 GM TUBE TP SCH ×2 (10:00→21:18)
[2022-10-09] MEDS: Z GUARD REMEDY 2 OZ OINT TP SCH ×2 (10:00→21:18)
[2022-10-09] MEDS: [UNRECOGNIZED DRUG - OTHER] TP SCH ×2 (10:00→21:00)
[2022-10-09] MEDS: COLLAGENASE 30 GM TUBE TP SCH ×2 (10:00→21:00)
[2022-10-09] MEDS: ZINC OXIDE 30 GM TUBE TP SCH ×4 (10:00→21:18)
[2022-10-09 10:17] LABS: CALCIUM, SERUM 7.9 mg/dL (8.5-10.1); CREATININE 0.7 mg/dL (0.6-1.3); POTASSIUM 3.3 mmol/L (3.5-5.1)
--- NOTE | 2022-10-09 10:50 | NUR ---
DOCTOR MADE AWARE OF PATIENT NOT HAVING BOWEL MOVEMENT FOR 2 DAYS AND ORDERED PATIENT MEDICATIONS FOR BOWEL MOVEMENT.
[2022-10-09] MEDS ORDERED: DOCUSATE SODIUM LIQ 100 MG/10 ML UDC GT SCH (17:00)
[2022-10-09 18:09] VITALS: BP 104/54
[2022-10-09 19:01] VITALS: BP 115/54
[2022-10-09] MEDS: VANCOMYCIN 500 MG in IV D5W 100ml IV SCH (21:04)
[2022-10-09] MEDS: ATORVASTATIN 40 MG TABLET GT SCH (21:18)
[2022-10-09] MEDS: SENNOSIDES 8.6 MG TABLET GT SCH (21:18)
[2022-10-10 00:12] VITALS: BP 111/57
[2022-10-10] MEDS: POLYVINYL ALCOHOL 15 ML BOTTLE EACHEYE SCH ×6 (00:40→21:34)
[2022-10-10] MEDS: PROSOURCE / PROSTAT (PYXIS) 30 ML UDC GT SCH ×5 (00:40→23:31)
[2022-10-10] MEDS: BLOOD SUGAR DIAGNOSTIC 1 EACH STRIP IN SCH ×5 (00:40→23:31)
[2022-10-10] MEDS: INSULIN REGULAR, HUMAN 100 UNIT/ML 3 ML VIAL SQ PRN ×5 (00:41→23:32)
[2022-10-10] MEDS: ALBUTEROL FS 2.5 MG/0.5 ML VIAL.NEB NEB SCH ×4 (01:28→19:53)
[2022-10-10] MEDS: IPRATROPIUM NEB FS 0.5 MG/2.5 ML AMPUL.NEB NEB SCH ×4 (01:28→19:53)
[2022-10-10] MEDS: LEVOTHYROXINE SODIUM 75 MCG TABLET PO SCH (05:35)
[2022-10-10] MEDS: GLUCERNA 1.2 1,000 ML BOTTLE GT SCH (07:16)
[2022-10-10 07:40] VITALS: BP 123/55
[2022-10-10] MEDS: MEROPENEM 500 MG in IV NS 0.9% 50 ML IV SCH ×2 (08:00→20:35)
[2022-10-10 08:20] LABS: CALCIUM, SERUM 8.3 mg/dL (8.5-10.1); CREATININE 0.6 mg/dL (0.6-1.3); POTASSIUM 3.1 mmol/L (3.5-5.1)
[2022-10-10] MEDS: NEOMY SULF/BACITRAC ZN/POLY 15 GM TUBE TP SCH ×2 (09:00→21:35)
[2022-10-10] MEDS: ACIDOPHILUS/BULGARICUS 1 EACH TAB.CHEW GT SCH ×2 (09:00→21:34)
[2022-10-10] MEDS: INSULIN GLARGINE, 100 UNIT/ML CARTRIDGE SQ SCH ×2 (09:00→21:37)
[2022-10-10] MEDS: MODAFINIL 100 MG TABLET GT SCH (09:00)
[2022-10-10] MEDS: RIVAROXABAN 10 MG TABLET PO SCH (09:00)
[2022-10-10] MEDS: ZINC OXIDE 30 GM TUBE TP SCH ×4 (09:00→21:36)
[2022-10-10] MEDS: METOCLOPRAMIDE HCL 10 MG/10 ML UDC GT SCH ×2 (09:00→21:34)
[2022-10-10] MEDS: ACETAMINOPHEN 650 MG/20 ML UDC- SA PATIENTS-PAIN ONLY GT SCH (09:00)
[2022-10-10] MEDS: DOCUSATE SODIUM LIQ 100 MG/10 ML UDC GT SCH ×3 (09:00→17:00)
[2022-10-10] MEDS: ZINC SULFATE 220 MG CAPSULE GT SCH (09:00)
[2022-10-10] MEDS: CHLORHEXIDINE GLUCONATE 15 ML UDC MM SCH ×2 (09:00→21:34)
[2022-10-10] MEDS: Z GUARD REMEDY 2 OZ OINT TP SCH ×2 (09:00→21:36)
[2022-10-10] MEDS: COLLAGENASE 30 GM TUBE TP SCH ×2 (09:00→21:36)
[2022-10-10] MEDS: PANTOPRAZOLE 40 MG/PACK PACK GT SCH ×2 (09:00→21:34)
[2022-10-10] MEDS: DAKINS QUARTER STRENGTH (0.125%) 480 ML BOTTLE TOP SCH ×2 (09:00→21:35)
[2022-10-10] MEDS: BUMETANIDE (1 MG) 1 MG TABLET GT SCH (09:00)
[2022-10-10] MEDS: AMANTADINE SUSP 50 MG/5 ML UDC GT SCH (09:00)
[2022-10-10] MEDS: POTASSIUM CHLORIDE 20 MEQ POWDER PACKET GT SCH ×2 (09:00→17:00)
[2022-10-10] MEDS: LACOSAMIDE ORAL SOLN 50 MG/5 ML UDC GT SCH ×2 (09:00→21:34)
[2022-10-10] MEDS: ASCORBIC ACID 500 MG TABLET GT SCH (09:00)
[2022-10-10] MEDS: NYSTATIN (PYXIS) 500,000 UNIT/5 ML ORAL.SUSP PO SCH ×4 (09:00→21:35)
[2022-10-10] MEDS: CARVEDILOL 6.25 MG TABLET GT SCH ×2 (09:00→21:34)
[2022-10-10] MEDS: HYDROGEN PEROXIDE 480 ML BOTTLE TP SCH ×2 (09:00→19:53)
[2022-10-10] MEDS: MULTIVIT W/MINERALS 1 TAB TABLET GT SCH (09:00)
[2022-10-10] MEDS: METOLAZONE 2.5 MG TABLET GT SCH (09:00)
[2022-10-10] MEDS: [UNRECOGNIZED DRUG - OTHER] TP SCH ×2 (09:00→21:35)
--- NOTE | 2022-10-10 11:00 | NUR ---
Notified Dr. Moreno results of elevated K+ level today 3.1, made aware too that last 2 K+ level results has been elevated, Patients' BMP check daily at this time. Dr. Moreno ordered to give extra dose of Klor con 40 meq via GT now. Noted and carried out.
[2022-10-10] MEDS ORDERED: POTASSIUM CHLORIDE 20 MEQ POWDER PACKET GT SCH (15:00)
[2022-10-10 17:17] VITALS: BP 106/55
[2022-10-10 19:29] VITALS: BP 127/59
[2022-10-10] MEDS: VANCOMYCIN 500 MG in IV D5W 100ml IV SCH (20:48)
[2022-10-10] MEDS: ATORVASTATIN 40 MG TABLET GT SCH (21:36)
[2022-10-10] MEDS: SENNOSIDES 8.6 MG TABLET GT SCH (21:36)
[2022-10-11] MEDS: POLYVINYL ALCOHOL 15 ML BOTTLE EACHEYE SCH ×6 (00:18→20:49)
[2022-10-11] MEDS: IPRATROPIUM NEB FS 0.5 MG/2.5 ML AMPUL.NEB NEB SCH ×4 (01:33→20:26)
[2022-10-11] MEDS: ALBUTEROL FS 2.5 MG/0.5 ML VIAL.NEB NEB SCH ×4 (01:33→20:27)
[2022-10-11] MEDS: PROSOURCE / PROSTAT (PYXIS) 30 ML UDC GT SCH ×3 (05:02→17:46)
[2022-10-11] MEDS: LEVOTHYROXINE SODIUM 75 MCG TABLET PO SCH (05:02)
[2022-10-11] MEDS: INSULIN REGULAR, HUMAN 100 UNIT/ML 3 ML VIAL SQ PRN ×3 (05:34→18:31)
[2022-10-11] MEDS: BLOOD SUGAR DIAGNOSTIC 1 EACH STRIP IN SCH ×3 (05:34→18:29)
[2022-10-11] MEDS: MEROPENEM 500 MG in IV NS 0.9% 50 ML IV SCH ×2 (08:00→20:44)
[2022-10-11 08:01] VITALS: BP 133/64
[2022-10-11 08:25] LABS: CALCIUM, SERUM 7.9 mg/dL (8.5-10.1); CARBON DIOXIDE 28 mmol/L (21-32); CHLORIDE 106 mmol/L (98-107); CREATININE 0.5 mg/dL (0.6-1.3); GLUCOSE 140 mg/dL (74-106); POTASSIUM 3.9 mmol/L (3.5-5.1); SODIUM SERUM 139 mmol/L (136-145); UREA NITROGEN, BLOOD 66 mg/dL (7-18)
[2022-10-11] MEDS: HYDROGEN PEROXIDE 480 ML BOTTLE TP SCH ×2 (08:54→20:27)
[2022-10-11] MEDS: BUMETANIDE (1 MG) 1 MG TABLET GT SCH (09:05)
[2022-10-11] MEDS: DOCUSATE SODIUM LIQ 100 MG/10 ML UDC GT SCH ×3 (09:08→17:46)
[2022-10-11] MEDS: CARVEDILOL 6.25 MG TABLET GT SCH ×2 (09:08→20:50)
[2022-10-11] MEDS: POTASSIUM CHLORIDE 20 MEQ POWDER PACKET GT SCH ×2 (09:09→17:46)
[2022-10-11] MEDS: MODAFINIL 100 MG TABLET GT SCH (09:10)
[2022-10-11] MEDS: PANTOPRAZOLE 40 MG/PACK PACK GT SCH ×2 (09:10→20:50)
[2022-10-11] MEDS: ACIDOPHILUS/BULGARICUS 1 EACH TAB.CHEW GT SCH ×2 (09:10→20:50)
[2022-10-11] MEDS: MULTIVIT W/MINERALS 1 TAB TABLET GT SCH (09:14)
[2022-10-11] MEDS: METOCLOPRAMIDE HCL 10 MG/10 ML UDC GT SCH ×2 (09:14→20:50)
[2022-10-11] MEDS: AMANTADINE SUSP 50 MG/5 ML UDC GT SCH (09:14)
[2022-10-11] MEDS: ACETAMINOPHEN 650 MG/20 ML UDC- SA PATIENTS-PAIN ONLY GT SCH (09:15)
[2022-10-11] MEDS: LACOSAMIDE ORAL SOLN 50 MG/5 ML UDC GT SCH ×2 (09:15→20:50)
[2022-10-11] MEDS: NYSTATIN (PYXIS) 500,000 UNIT/5 ML ORAL.SUSP PO SCH ×4 (09:16→20:51)
[2022-10-11] MEDS: METOLAZONE 2.5 MG TABLET GT SCH (09:16)
[2022-10-11] MEDS: CHLORHEXIDINE GLUCONATE 15 ML UDC MM SCH ×2 (09:16→20:50)
[2022-10-11] MEDS: ASCORBIC ACID 500 MG TABLET GT SCH (09:16)
[2022-10-11] MEDS: ZINC SULFATE 220 MG CAPSULE GT SCH (09:16)
[2022-10-11] MEDS: RIVAROXABAN 10 MG TABLET PO SCH (09:17)
[2022-10-11] MEDS: INSULIN GLARGINE, 100 UNIT/ML CARTRIDGE SQ SCH ×2 (09:25→21:37)
[2022-10-11] MEDS: ZINC OXIDE 30 GM TUBE TP SCH ×4 (10:00→20:51)
[2022-10-11] MEDS: DAKINS QUARTER STRENGTH (0.125%) 480 ML BOTTLE TOP SCH ×2 (10:00→20:51)
[2022-10-11] MEDS: NEOMY SULF/BACITRAC ZN/POLY 15 GM TUBE TP SCH ×2 (10:00→20:51)
[2022-10-11] MEDS: COLLAGENASE 30 GM TUBE TP SCH ×2 (10:00→20:51)
[2022-10-11] MEDS: [UNRECOGNIZED DRUG - OTHER] TP SCH ×2 (10:00→20:51)
--- NOTE | 2022-10-11 11:28 | NUR ---
Family invite to IDT: SW emailed the pt.'s son, Shantanu inviting them to participate in 10/15/2022 IDT meeting. SUNDAY will follow up as needed.
[2022-10-11] MEDS ORDERED: Z GUARD REMEDY 4 OZ OINT TP PRN (11:42)
--- NOTE | 2022-10-11 12:00 | NUR ---
Seen and examined by JAMA Fuchs, no new order given.
[2022-10-11 13:20] VITALS: BP 132/63
--- NOTE | 2022-10-11 15:06 | NUR ---
Neurology records: SUNDAY received signed authorization for disclosure of health information signed by pt.s' son, Shantanu Wilburn for the purpose of requesting neuro consult notes from [facility] [[address] [place] [address] , [place] [address] ]. SUNDAY faxed for to [facility] Medical records dept. fax:[phone] tel:[phone]. SUNDAY will follow up as needed.
[2022-10-11 19:46] VITALS: BP 108/52
[2022-10-11] MEDS: VANCOMYCIN 500 MG in IV D5W 100ml IV SCH (20:44)
[2022-10-11] MEDS: Z GUARD REMEDY 4 OZ OINT TP SCH (20:51)
[2022-10-11] MEDS: SENNOSIDES 8.6 MG TABLET GT SCH (21:36)
[2022-10-11] MEDS: ATORVASTATIN 40 MG TABLET GT SCH (21:36)
[2022-10-12] MEDS: POLYVINYL ALCOHOL 15 ML BOTTLE EACHEYE SCH ×6 (01:52→20:36)
[2022-10-12] MEDS: IPRATROPIUM NEB FS 0.5 MG/2.5 ML AMPUL.NEB NEB SCH ×4 (02:28→20:27)
[2022-10-12] MEDS: ALBUTEROL FS 2.5 MG/0.5 ML VIAL.NEB NEB SCH ×4 (02:28→20:27)
[2022-10-12] MEDS: PROSOURCE / PROSTAT (PYXIS) 30 ML UDC GT SCH ×4 (05:13→17:15)
[2022-10-12] MEDS: LEVOTHYROXINE SODIUM 75 MCG TABLET PO SCH (05:14)
[2022-10-12] MEDS: BLOOD SUGAR DIAGNOSTIC 1 EACH STRIP IN SCH ×4 (05:14→17:00)
[2022-10-12 07:59] LABS: CALCIUM, SERUM 8.1 mg/dL (8.5-10.1); CARBON DIOXIDE 27 mmol/L (21-32); CHLORIDE 105 mmol/L (98-107); CREATININE 0.6 mg/dL (0.6-1.3); GLUCOSE 249 mg/dL (74-106); POTASSIUM 3.6 mmol/L (3.5-5.1); SODIUM SERUM 142 mmol/L (136-145); UREA NITROGEN, BLOOD 78 mg/dL (7-18)
[2022-10-12] MEDS: MEROPENEM 500 MG in IV NS 0.9% 50 ML IV SCH ×2 (08:00→20:36)
[2022-10-12] MEDS: DOCUSATE SODIUM LIQ 100 MG/10 ML UDC GT SCH ×3 (08:19→17:15)
[2022-10-12] MEDS: BUMETANIDE (1 MG) 1 MG TABLET GT SCH (08:19)
[2022-10-12] MEDS: ACETAMINOPHEN 650 MG/20 ML UDC- SA PATIENTS-PAIN ONLY GT SCH (08:20)
[2022-10-12] MEDS: AMANTADINE SUSP 50 MG/5 ML UDC GT SCH (08:20)
[2022-10-12] MEDS: ACIDOPHILUS/BULGARICUS 1 EACH TAB.CHEW GT SCH ×2 (08:20→20:41)
[2022-10-12] MEDS: MULTIVIT W/MINERALS 1 TAB TABLET GT SCH (08:20)
[2022-10-12] MEDS: PANTOPRAZOLE 40 MG/PACK PACK GT SCH ×2 (08:20→20:41)
[2022-10-12] MEDS: CARVEDILOL 6.25 MG TABLET GT SCH ×2 (08:20→20:40)
[2022-10-12] MEDS: MODAFINIL 100 MG TABLET GT SCH (08:20)
[2022-10-12] MEDS: METOCLOPRAMIDE HCL 10 MG/10 ML UDC GT SCH ×2 (08:20→20:41)
[2022-10-12] MEDS: POTASSIUM CHLORIDE 20 MEQ POWDER PACKET GT SCH ×2 (08:20→17:15)
[2022-10-12] MEDS: ZINC SULFATE 220 MG CAPSULE GT SCH (08:21)
[2022-10-12] MEDS: METOLAZONE 2.5 MG TABLET GT SCH (08:21)
[2022-10-12] MEDS: RIVAROXABAN 10 MG TABLET PO SCH (08:21)
[2022-10-12] MEDS: LACOSAMIDE ORAL SOLN 50 MG/5 ML UDC GT SCH ×2 (08:21→20:41)
[2022-10-12] MEDS: ASCORBIC ACID 500 MG TABLET GT SCH (08:21)
[2022-10-12] MEDS: NYSTATIN (PYXIS) 500,000 UNIT/5 ML ORAL.SUSP PO SCH ×4 (08:21→20:41)
[2022-10-12] MEDS: INSULIN GLARGINE, 100 UNIT/ML CARTRIDGE SQ SCH ×2 (08:22→21:45)
[2022-10-12 08:29] VITALS: BP 127/58
[2022-10-12] MEDS: DAKINS QUARTER STRENGTH (0.125%) 480 ML BOTTLE TOP SCH ×2 (09:26→20:41)
[2022-10-12] MEDS: [UNRECOGNIZED DRUG - OTHER] TP SCH ×2 (09:26→20:41)
[2022-10-12] MEDS: Z GUARD REMEDY 4 OZ OINT TP SCH ×2 (09:26→20:41)
[2022-10-12] MEDS: CHLORHEXIDINE GLUCONATE 15 ML UDC MM SCH ×2 (09:26→20:41)
[2022-10-12] MEDS: NEOMY SULF/BACITRAC ZN/POLY 15 GM TUBE TP SCH ×2 (09:26→20:41)
[2022-10-12] MEDS: ZINC OXIDE 30 GM TUBE TP SCH ×4 (09:26→20:42)
[2022-10-12] MEDS: COLLAGENASE 30 GM TUBE TP SCH ×2 (09:26→20:41)
--- NOTE | 2022-10-12 09:30 | NUR ---
SUNDAY received neurology consult medical records from [facility] fax:[phone] tel:[phone]. SUNDAY provided records to charge nurse,
[2022-10-12] MEDS: HYDROGEN PEROXIDE 480 ML BOTTLE TP SCH ×2 (09:53→20:27)
--- NOTE | 2022-10-12 10:00 | NUR ---
Seen and examined by Dr. Khan, informed about yellowish skin color, gave order to do LFT's in AM, carried out.
[2022-10-12] MEDS: INSULIN REGULAR, HUMAN 100 UNIT/ML 3 ML VIAL SQ PRN ×2 (11:36→17:02)
--- NOTE | 2022-10-12 12:13 | NUR ---
isitation Guidelines: SUNDAY emailed the pt.'s son,Shantanu informing them of latest changes in visitation guidelines as recommended by [facility] Department of Public Health: "All visitors must now present a negative COVID test result upon visiting that was taken within 24 hours prior to their visit regardless of visitation status or show proof that they recovered from COVID-19 within the past 90 days. See attached update visiting guidelines for full details." SUNDAY also reminded families that "[facility] is also recommending that patients and visitors receive the latest Bivalent booster. The resident can receive it at [facility] per request."
[2022-10-12 13:12] VITALS: BP 116/54
[2022-10-12 13:20] VITALS: BP 109/68
[2022-10-12] MEDS: GLUCERNA 1.2 1,000 ML BOTTLE GT SCH (17:00)
[2022-10-12 17:28] VITALS: BP 121/74
[2022-10-12 19:08] VITALS: BP 103/59
[2022-10-12] MEDS: VANCOMYCIN 500 MG in IV D5W 100ml IV SCH (20:41)
[2022-10-12] MEDS: ATORVASTATIN 40 MG TABLET GT SCH (21:44)
[2022-10-13] MEDS: PROSOURCE / PROSTAT (PYXIS) 30 ML UDC GT SCH ×4 (00:07→17:23)
[2022-10-13] MEDS: BLOOD SUGAR DIAGNOSTIC 1 EACH STRIP IN SCH ×4 (00:07→17:23)
[2022-10-13] MEDS: POLYVINYL ALCOHOL 15 ML BOTTLE EACHEYE SCH ×6 (00:07→21:26)
[2022-10-13] MEDS: IPRATROPIUM NEB FS 0.5 MG/2.5 ML AMPUL.NEB NEB SCH ×4 (02:16→19:26)
[2022-10-13] MEDS: ALBUTEROL FS 2.5 MG/0.5 ML VIAL.NEB NEB SCH ×4 (02:17→19:26)
[2022-10-13] MEDS: LEVOTHYROXINE SODIUM 75 MCG TABLET PO SCH (05:29)
[2022-10-13 07:07] VITALS: BP 125/66
[2022-10-13] MEDS: MEROPENEM 500 MG in IV NS 0.9% 50 ML IV SCH ×2 (08:00→19:41)
[2022-10-13] MEDS: HYDROGEN PEROXIDE 480 ML BOTTLE TP SCH ×2 (08:26→19:26)
[2022-10-13] MEDS: POTASSIUM CHLORIDE 20 MEQ POWDER PACKET GT SCH ×2 (08:28→16:41)
[2022-10-13] MEDS: DOCUSATE SODIUM LIQ 100 MG/10 ML UDC GT SCH ×3 (08:28→16:41)
[2022-10-13] MEDS: ACIDOPHILUS/BULGARICUS 1 EACH TAB.CHEW GT SCH ×2 (08:28→21:27)
[2022-10-13] MEDS: CARVEDILOL 6.25 MG TABLET GT SCH ×2 (08:28→21:26)
[2022-10-13] MEDS: METOCLOPRAMIDE HCL 10 MG/10 ML UDC GT SCH ×2 (08:28→21:27)
[2022-10-13] MEDS: PANTOPRAZOLE 40 MG/PACK PACK GT SCH ×2 (08:28→21:27)
[2022-10-13] MEDS: MODAFINIL 100 MG TABLET GT SCH (08:28)
[2022-10-13] MEDS: BUMETANIDE (1 MG) 1 MG TABLET GT SCH (08:28)
[2022-10-13] MEDS: MULTIVIT W/MINERALS 1 TAB TABLET GT SCH (08:29)
[2022-10-13] MEDS: ZINC SULFATE 220 MG CAPSULE GT SCH (08:29)
[2022-10-13] MEDS: RIVAROXABAN 10 MG TABLET PO SCH (08:29)
[2022-10-13] MEDS: CHLORHEXIDINE GLUCONATE 15 ML UDC MM SCH ×2 (08:29→21:27)
[2022-10-13] MEDS: AMANTADINE SUSP 50 MG/5 ML UDC GT SCH (08:29)
[2022-10-13] MEDS: ASCORBIC ACID 500 MG TABLET GT SCH (08:29)
[2022-10-13] MEDS: NYSTATIN (PYXIS) 500,000 UNIT/5 ML ORAL.SUSP PO SCH ×4 (08:29→21:27)
[2022-10-13] MEDS: METOLAZONE 2.5 MG TABLET GT SCH (08:29)
[2022-10-13] MEDS: LACOSAMIDE ORAL SOLN 50 MG/5 ML UDC GT SCH ×2 (08:29→21:27)
[2022-10-13] MEDS: ACETAMINOPHEN 650 MG/20 ML UDC- SA PATIENTS-PAIN ONLY GT SCH (08:29)
[2022-10-13] MEDS: INSULIN GLARGINE, 100 UNIT/ML CARTRIDGE SQ SCH ×2 (08:30→21:33)
[2022-10-13 09:11] LABS: BILIRUBIN,DIRECT 7.7 mg/dL (0.0-0.2); BILIRUBIN,TOTAL 8.3 mg/dL (0.2-1.0); CALCIUM, SERUM 7.9 mg/dL (8.5-10.1); CREATININE 0.7 mg/dL (0.6-1.3); POTASSIUM 3.6 mmol/L (3.5-5.1); TOTAL PROTEIN, SERUM 5.3 g/dL (6.4-8.2)
[2022-10-13 09:29] LABS: ALBUMIN 6.5 g/dL (3.4-5.0)
[2022-10-13] MEDS: DAKINS QUARTER STRENGTH (0.125%) 480 ML BOTTLE TOP SCH ×2 (09:33→21:27)
[2022-10-13] MEDS: ZINC OXIDE 30 GM TUBE TP SCH ×4 (09:33→21:27)
[2022-10-13] MEDS: NEOMY SULF/BACITRAC ZN/POLY 15 GM TUBE TP SCH ×2 (09:33→21:27)
[2022-10-13] MEDS: Z GUARD REMEDY 4 OZ OINT TP SCH ×2 (09:33→21:27)
[2022-10-13] MEDS: [UNRECOGNIZED DRUG - OTHER] TP SCH ×2 (09:33→21:27)
[2022-10-13] MEDS: COLLAGENASE 30 GM TUBE TP SCH ×2 (09:33→21:27)
[2022-10-13] MEDS: INSULIN REGULAR, HUMAN 100 UNIT/ML 3 ML VIAL SQ PRN ×2 (11:32→17:26)
--- NOTE | 2022-10-13 13:07 | NUR ---
Lab results relayed to Dr Moreno. Dr Khan also aware of lab results. Dr Moreno ordered GI consult. Called Dr Breen's office and left message with Radha.
[2022-10-13 13:32] VITALS: BP 106/55
[2022-10-13] MEDS: GLUCERNA 1.2 1,000 ML BOTTLE GT SCH (13:56)
[2022-10-13 14:42] VITALS: BP 106/55
[2022-10-13 16:19] VITALS: BP 97/47
--- NOTE | 2022-10-13 17:15 | NUR ---
Notified Dr Moreno that Dr Breen has not called back, pt appears jaundiced. Dr Moreno ordered to transfer pt to acute hospital. Nursing teller supervisor notified of transfer order. Called ER and spoke with RN Teodoro. He said there is no bed available isolation room at this time. ER will call once bed is available.
--- NOTE | 2022-10-13 17:45 | NUR ---
Notified Shantanu Wilburn of order to transfer pt to acute hospital due to abnormal labs/elevated LFT. Notified him that pt is jaundiced.
--- NOTE | 2022-10-13 17:59 | NUR ---
Pt's daughter Tana called. Informed her of abnormal labs and order to transfer pt to acute hospital.
[2022-10-13 19:09] VITALS: BP 109/62
--- NOTE | 2022-10-13 19:53 | NUR ---
Spoke to Elliott from ER to give report for patient transfer d\t abnormal labs ,elevated LFT and jaundice. Per Elliott there's no available bed right now will call back once bed is available. will follow up.
--- NOTE | 2022-10-13 21:23 | NUR ---
Notified Dr. Blake patient still in sub acute,he ordered to call [facility] phone manager Shahrzad Russell DNP for direct admission to acute floor. Spoke to Shahrzad she said call Nursing supervisor fabrication and assembly to get a room and transfer patient. awaiting for room for now.
[2022-10-13 21:26] VITALS: BP 109/62
[2022-10-13] MEDS: ATORVASTATIN 40 MG TABLET GT SCH (21:27)
--- NOTE | 2022-10-13 21:55 | NUR ---
TRANSFERRED TO ER BED #8 FOR ABNORMAL LABS AT THIS TIME.
--- NOTE | 2022-10-13 21:55 | NUR ---
Transported to ER accompanied by RN ,RT and DUMP GROUNDS CHECKER,report give to Renetta GLYNN. Patient will be on bed hold x 7 days.
[2022-10-15] MEDS ORDERED: NEOM28.37 TP (09:17)
[2022-10-15] MEDS ORDERED: ZINC56.713 TP (09:17)
[2022-10-15] MEDS ORDERED: HYDR1SOL TD (09:17)
[2022-10-15] MEDS ORDERED: INSU100V3 SQ (09:17)
[2022-10-15] MEDS ORDERED: SODI473S8 TD (09:17)
== END 2022-10-14 23:00 | disposition short-term general hospital (02) | DRG 981 ==
LOC: SA 17:04 → UNDOLOA 10-14 23:00
PROVIDERS: ADMIT Internal Medicine; ATTEND Internal Medicine
PROC: 5A1955Z Respiratory Ventilation, Greater than 96 Consecutive Hours (ICD-10-PCS; principal; 2022-08-11)
PROC: 0KBN0ZZ Excision of Right Hip Muscle, Open Approach (ICD-10-PCS; 2022-08-20)
PROC: 0KBP0ZZ Excision of Left Hip Muscle, Open Approach (ICD-10-PCS; 2022-08-20)
DX: J96.11 Chronic respiratory failure with hypoxia (principal); L89.154 Pressure ulcer of sacral region, stage 4; G93.1 Anoxic brain damage, not elsewhere classified; N39.0 Urinary tract infection, site not specified; I69.354 Hemiplegia and hemiparesis following cerebral infarction affecting left non-dominant side; Z99.11 Dependence on respirator [ventilator] status; I25.10 Atherosclerotic heart disease of native coronary artery without angina pectoris; E03.9 Hypothyroidism, unspecified; D63.8 Anemia in other chronic diseases classified elsewhere; E11.65 Type 2 diabetes mellitus with hyperglycemia; E66.01 Morbid (severe) obesity due to excess calories; E78.5 Hyperlipidemia, unspecified; I10 Essential (primary) hypertension; K82.8 Other specified diseases of gallbladder; L85.3 Xerosis cutis; R13.10 Dysphagia, unspecified; Z20.822 Contact with and (suspected) exposure to COVID-19; Z74.01 Bed confinement status; Z79.4 Long term (current) use of insulin; Z86.19 Personal history of other infectious and parasitic diseases; Z87.01 Personal history of pneumonia (recurrent); Z93.0 Tracheostomy status; Z95.0 Presence of cardiac pacemaker
CPT/HCPCS: 31720; 36415; 36600; 71045-TC; 76770-TC; 80048-TC; 80076-TC; 80202-TC; 81001; 82962-TC; 83735-TC; 84132-TC; 84443-TC; 85025-TC; 86580-TC; 87040-TC; 87081-TC; 87086-TC; 94003-TC; 94760-TC; 94761-TC; 94762-TC; 94799-TC; 97110-TC; 97112-TC; 97530-TC; 99082-TC; A4623; A6253; A7526; J1815; J2185; J3370; J3475; J3490; J7030; J7060; J8597; Q2036; Q9967; U0003

== ENCOUNTER 2022-09-01 10:07 | Outpatient (CLI) | payer MEDICARE, OTHER ==
[~2022-09-01 10:07] MED LIST: ACET650S26 GT; ACID1TAB12 GT; AMAN100T GT; ASCO-495 GT; ATOR40TA GT; BETH50TA2 PO; BUME1TAB8 GT; CARV12.52 GT; CHLO473M5 MM; HYDR-4075 GT; INSU100V11 SQ; INSU100V7 SQ; IPRA3AMP23 IH; LACO100T2 GT; LACO10SO GT; LANS30CA56 GT; LEVO150T8 GT; MERO500V23 IV; METO5SOL GT; METO5TAB7 GT; MODAFINIL GT; MULT9LIQ5 GT; NUT.237L30 GT; RIVA10TA GT; VANC1PLA9 IV
[2022-09-04] MEDS ORDERED: LACOSAMIDE ORAL SOLN 50 MG/5 ML UDC ONE (23:12)
[2022-10-15] MEDS ORDERED: NEOM28.37 TP (09:17)
[2022-10-15] MEDS ORDERED: ZINC56.713 TP (09:17)
[2022-10-15] MEDS ORDERED: INSU100V3 SQ (09:17)
[2022-10-15] MEDS ORDERED: HYDR1SOL TD (09:17)
[2022-10-15] MEDS ORDERED: SODI473S8 TD (09:17)
== END 2022-09-01 23:59 | disposition home or self-care (01) ==
LOC: RAD 10:07
PROVIDERS: ATTEND Internal Medicine
DX: K82.8 Other specified diseases of gallbladder (principal)
CPT/HCPCS: 47531; J7050; Q9967

== ENCOUNTER 2022-10-02 18:03 | Inpatient (IN) | payer MEDICARE, OTHER ==
[~2022-10-02] VITALS: Ht 152.4 cm; Wt 64.4 kg
[2022-10-02] MEDS ORDERED: MEROPENEM 1 G in IV NS 0.9% 100 ML IV STA (18:15)
--- NOTE | 2022-10-02 18:25 | NUR ---
BIB NURSING STAFF FROM SUB-ACUTE UNIT W/ CHIEF COMPLAINT OF HYPOTENSION SBP IN THE 80'S, AND ABNORMAL LABS (NA-161, CREA-1.5)
[2022-10-02] MEDS ORDERED: VANCOMYCIN HCL 1.25 GM in IV D5W 260 ML IV ONE (18:30)
[2022-10-02] MEDS ORDERED: IV NS 0.9% 1,000 ML IV ONE (18:30)
--- NOTE | 2022-10-02 18:31 | NUR ---
COVID SWAB TAKEN SENT TO LAB
--- NOTE | 2022-10-02 18:40 | NUR ---
xray done by tech
--- NOTE | 2022-10-02 18:55 | NUR ---
IV lines are established both are at the upper arm 20g
--- NOTE | 2022-10-02 19:04 | NUR ---
urine sample obtained sent to lab
[2022-10-02 19:26] LABS: ALANINE AMINOTRANSFERASE 109 U/L (12-78); ALBUMIN 1.5 g/dL (3.4-5.0); ALKALINE PHOSPHATASE 775 U/L (46-116); ASPARTATE AMINOTRANSFERASE 94 U/L (15-37); BILIRUBIN,DIRECT 0.4 mg/dL (0.0-0.2); BILIRUBIN,TOTAL 0.6 mg/dL (0.2-1.0); CALCIUM, SERUM 8.1 mg/dL (8.5-10.1); CARBON DIOXIDE 27 mmol/L (21-32); CHLORIDE 119 mmol/L (98-107); CREATININE 1.6 mg/dL (0.6-1.3); POTASSIUM 4.9 mmol/L (3.5-5.1); SODIUM SERUM 155 mmol/L (136-145); TOTAL PROTEIN, SERUM 6.1 g/dL (6.4-8.2)
[2022-10-02 19:39] LABS: GLUCOSE 354 mg/dL (74-106); UREA NITROGEN, BLOOD 163 mg/dL (7-18)
[2022-10-02 20:02] LABS: BASOPHILS % (AUTO) 0.2 % (0.0-2.0); EOSINOPHILS % (AUTO) 1.3 % (0.0-6.0); HEMATOCRIT 24 % (33-45); HEMOGLOBIN 7.2 g/dL (11.5-14.8); LYMPHOCYTES # (AUTO) 1.7 K/uL (0.8-4.8); LYMPHOCYTES % (AUTO) 10.7 % (20.0-44.0); MEAN CORPUSCULAR HGB CONC 30 g/dl (31.0-36.0); MEAN CORPUSCULAR VOLUME 105 fL (82-100); MONOCYTES # (AUTO) 0.6 K/uL (0.1-1.30); MONOCYTES % (AUTO) 3.6 % (2.0-12.0); NEUTROPHILS # (AUTO) 13.4 K/uL (1.8-8.9); NEUTROPHILS % (AUTO) 84.2 % (43.0-81.0); PLATELET COUNT (AUTO) 175 K/uL (150-450); RED BLOOD CELL COUNT(AUTO) 2.29 MIL/uL (4.0-5.2); WHITE BLOOD COUNT (AUTO) 15.9 K/uL (4.3-11.0)
[2022-10-02 21:09] LABS: BILIRUBIN,URINE NEGATIVE (NEGATIVE); COLOR,URINE YELLOW (YELLOW); LEUKOCYTE ESTERASE ,URINE 2+ (NEGATIVE); NITRITE, URINE NEGATIVE (NEGATIVE); PROTEIN,URINE 1+ mg/dl (NEGATIVE); UGLUCOSE NEGATIVE (NEGATIVE); UROBILINOGEN,URINE 0.2 EU/dL (0.2)
[2022-10-02 21:11] LABS: PH,URINE >8.5 (5.0-8.0)
[2022-10-02 21:18] LABS: BACTERIA,URINE 2+ /HPF (None Seen); SQUAMOUS EPITHELIAL CELL,UR 0-2 /HPF (None Seen); URINE AMORPHOUS PHOSPHATES Moderate /HPF (None Seen); WBC,URINE 21-50 /HPF (0-3)
[2022-10-02] MEDS ORDERED: ZOLPIDEM TARTRATE 5 MG TABLET GT PRN (21:30)
[2022-10-02] MEDS ORDERED: Z GUARD REMEDY 4 OZ OINT TP PRN (21:30)
[2022-10-02] MEDS ORDERED: MAG HYDROX/AL HYDROX/SIMETH 30 ML UDC GT PRN (21:30)
[2022-10-02] MEDS ORDERED: ACETAMINOPHEN 650 MG/20.3 ML UDC GT PRN (21:30)
[2022-10-02] MEDS ORDERED: MAGNESIUM HYDROXIDE 30 ML UDC GT PRN (21:30)
[2022-10-02] MEDS ORDERED: BETHANECHOL CHLORIDE 50 MG TABLET PO PRN (21:30)
[2022-10-02] MEDS ORDERED: DEXTROSE 50%-WATER 50 ML DISP.SYRIN IV PRN (21:30)
[2022-10-02] MEDS ORDERED: ONDANSETRON HCL/PF 4 MG/2 ML VIAL IVP PRN (21:30)
[2022-10-02] MEDS ORDERED: GLUCERNA 1.2 1,000 ML BOTTLE NG PRN (21:30)
[2022-10-02] MEDS ORDERED: ATORVASTATIN 40 MG TABLET GT SCH (22:00)
[2022-10-02 22:50] LABS: LYMPHOCYTES % (MANUAL) 8 % (16-48); MONOCYTES % (MANUAL) 2 % (0-11.0); NEUTROPHILS % (MANUAL) 90 (42-76)
[2022-10-03] VITALS (17 sets, daily range): BP systolic 99–131; BP diastolic 41–56
[2022-10-03] MEDS: IV 1/2NS 1000 ML 1,000 ML IV PRN ×2 (02:57→06:42)
--- NOTE | 2022-10-03 03:46 | NUR ---
REPORT GIVEN TO KIMBERLY GLYNN FOR DUNCAN
[2022-10-03] MEDS ORDERED: MEROPENEM 1 G in IV NS 0.9% 100 ML IV SCH (05:00)
[2022-10-03 05:09] LABS: BASOPHILS % (AUTO) 0.1 % (0.0-2.0); EOSINOPHILS % (AUTO) 2.1 % (0.0-6.0); LYMPHOCYTES # (AUTO) 1.1 K/uL (0.8-4.8); LYMPHOCYTES % (AUTO) 7.6 % (20.0-44.0); MEAN CORPUSCULAR HGB CONC 29 g/dl (31.0-36.0); MEAN CORPUSCULAR VOLUME 105 fL (82-100); MONOCYTES # (AUTO) 0.6 K/uL (0.1-1.30); MONOCYTES % (AUTO) 4.5 % (2.0-12.0); NEUTROPHILS # (AUTO) 12.4 K/uL (1.8-8.9); NEUTROPHILS % (AUTO) 85.7 % (43.0-81.0); PLATELET COUNT (AUTO) 159 K/uL (150-450)
--- NOTE | 2022-10-03 05:20 | NUR ---
RT Pt transported to [facility] with RN using ACLS protocol. Vent plugged into red outlet with alarms on and audible, ambu bag and spare trach at bedside.
--- NOTE | 2022-10-03 05:20 | NUR ---
RN NOTES RECEIVED CRITICAL LAB; HGB 5.4 AND HCT 19. NOTIFIED SHARRI NICOLE (JAMA THOMAS) ORDER GIVEN 2 UNITS PRBC, HOLD FEEDING FOR NOW. WILL CARRY OUT ORDER. Addendum: 10/03/22 at 0615 by PEDRO AGUIRRE RN @0613 ANOTHER CRITICAL LAB; BUN 144. SHARRI NICOLE NOTIFIED (JAMA THOMAS)
[2022-10-03 05:23] LABS: RED BLOOD CELL COUNT(AUTO) 1.77 MIL/uL (4.0-5.2)
[2022-10-03 05:24] LABS: HEMATOCRIT 19 % (33-45); HEMOGLOBIN 5.4 g/dL (11.5-14.8)
[2022-10-03 05:28] LABS: WHITE BLOOD COUNT (AUTO) 14.5 K/uL (4.3-11.0)
--- NOTE | 2022-10-03 05:40 | NUR ---
INTELLIGENCE SENIOR SERGEANT NOTES: RECEIVED PATIENT FROM ER VIA [facility] ON STABLE CONDITION, PATIENT ON MECHANICAL VENT SET UP AT ROOM WITH O2 SATURATION WITHIN NORMAL RANGE, PATIENT WAS A/OX0 OPEN EYES AND OBTUNDED AND APPEARS LETHARGIC, ON TELE MONITOR- A FIB-84, WITH PACEMAKER, ON BILATERAL RIGHT FOREARM IV LINE G20 WITH ONGOING 0.45NSS AT LEFT HAND RUNNING AT 120ML/HR, PATIENT ON G TUBE FEEDING OF NEPRO 40ML/HR TO START AT AM SHIFT, SKIN ASSESSMENT DONE AND DOCUMENTED, WOUND CARE CONSULT FOR SACRAL PRESSURE SORE, PATIENT HAS STANDING ORDER OF BLOOD TRANSFUSION OF 2PRBC FOR HGB -5.4, ORDERED ALREADY AWAITING FOR LABS REPLY, ENDORSE TO AM NURSE, PATIENT KEPT CLEAN AND DRY ALL NEEDS MET ENDORSE TO INCOMING SHIFT.
[2022-10-03 05:58] LABS: CALCIUM, SERUM 7.9 mg/dL (8.5-10.1); CREATININE 1.3 mg/dL (0.6-1.3); MAGNESIUM 2.6 mg/dL (1.8-2.4); PHOSPHORUS 4.9 mg/dL (2.5-4.9); POTASSIUM 4.1 mmol/L (3.5-5.1)
--- NOTE | 2022-10-03 05:59 | NUR ---
RENARD NOTES CALLED PT'S DAUGHTER KENTON [phone] TO SECURE CONSENT FOR BLOOD TRANSFUSION, ROUTED TO AND REQUESTED FOR CALLBACK. Addendum: 10/03/22 at 0717 by PEDRO AGUIRRE RN RECEIVED CALL BACK FROM PT'S SON KAREN; SECURED CONSENT FOR BLOOD TRANSFUSION COUNTER VERIFIED WITH RENARD HARRIS
[2022-10-03] MEDS: BLOOD SUGAR DIAGNOSTIC 1 EACH STRIP IN SCH ×4 (06:00→23:44)
[2022-10-03] MEDS ORDERED: ACETAMINOPHEN 650 MG/20.3 ML UDC GT PRN ×2 (06:17→06:30)
[2022-10-03] MEDS ORDERED: ACETAMINOPHEN 650 MG/20.3 ML UDC PO PRN (06:30)
[2022-10-03] MEDS ORDERED: BETHANECHOL CHLORIDE (25 MG) 25 MG TABLET PO PRN (07:00)
--- NOTE | 2022-10-03 07:00 | NUR ---
PERSONAL CARE ATTENDANT CLOSING NOTES: PATIENT SLEEP IN BED COMFORTABLY, ON MECHANICAL VENT SATURATING WELL, PATIENT REMAINS STABLE, STANDING ORDER OF BT OF 2PRBC ENDORSE TO INCOMING NURSE, PATIENT KEPT CLEAN AND DERY ALL NEEDS MET ENDORSE TO INCOMING SHIFT.
--- NOTE | 2022-10-03 07:39 | NUR ---
RN NOTES: BLOOD SUGAR-201/ NO INSULIN GIVNE PATIENT ON NPO OR ANY G TUBE INTAKE.
[2022-10-03] MEDS: MEROPENEM 500 MG in IV NS 0.9% 50 ML IV SCH ×2 (07:45→17:52)
--- NOTE | 2022-10-03 07:48 | NUR ---
APPLICATION SUPPORT DEVELOPER OPENING NOTES: RECEIVED PT AWAKE IN BED. NONVERBAL AND UNABLE TO FOLLOW COMMAND. NO SIGNS OF PAIN OR DISCOMFORT AT THIS TIME. PT IS ON A VENTILATOR ON PRESCRIBED SETTINGS AND TOLERATING IT WELL. GT IS PATENT AND INTACT. IV ACCES ON BILATERAL FOREARM 20 GAUGE PATENT AND INTACT. HOB ELEVATED TO 30-45 DEGREES. SIDERAILS UP AT ALL TIMES. BED SET TO LOWEST SETTINGS. WILL CONTINUE TO MONITOR.
[2022-10-03] MEDS: IPRATROPIUM NEB FS 0.5 MG/2.5 ML AMPUL.NEB NEB SCH ×3 (08:13→19:43)
[2022-10-03] MEDS: ALBUTEROL FS 2.5 MG/3 ML VIAL.NEB NEB SCH ×3 (08:13→19:43)
[2022-10-03] MEDS ORDERED: ZINC50TA69 GT (08:59)
[2022-10-03] MEDS ORDERED: DEXT50DI8 IV (08:59)
[2022-10-03] MEDS ORDERED: NYST5ORA PO (08:59)
[2022-10-03] MEDS ORDERED: DOCU50LI GT (08:59)
[2022-10-03] MEDS ORDERED: POLY15DR40 EACHEYE (08:59)
[2022-10-03] MEDS ORDERED: ACET650S26 GT (08:59)
[2022-10-03] MEDS ORDERED: HYDR-4209 TD (08:59)
[2022-10-03] MEDS ORDERED: INSU100V7 SQ (08:59)
[2022-10-03] MEDS ORDERED: COLL30OI TP (08:59)
[2022-10-03] MEDS ORDERED: ALLA266C2 TP (08:59)
[2022-10-03] MEDS ORDERED: AMIN30LI2 GT (08:59)
[2022-10-03] MEDS ORDERED: PANT40SU2 GT (08:59)
[2022-10-03] MEDS ORDERED: POTA20PA3 GT (08:59)
[2022-10-03] MEDS ORDERED: LACOSAMIDE ORAL SOLN 50 MG/5 ML UDC GT SCH (09:00)
[2022-10-03] MEDS: CARVEDILOL 12.5 MG TABLET GT SCH ×2 (09:00→16:57)
[2022-10-03] MEDS: LEVOTHYROXINE SODIUM 75 MCG TABLET GT SCH (09:23)
[2022-10-03] MEDS: MULTIVIT W/MINERALS 1 TAB TABLET GT SCH (09:23)
[2022-10-03] MEDS: MODAFINIL 100 MG TABLET GT SCH (09:23)
[2022-10-03] MEDS: CHLORHEXIDINE GLUCONATE 15 ML UDC MM SCH ×2 (09:23→21:34)
[2022-10-03] MEDS: LACOSAMIDE ORAL SOLN 50 MG/5 ML UDC GT SCH ×2 (09:23→21:34)
[2022-10-03] MEDS: ASCORBIC ACID 500 MG TABLET GT SCH (09:23)
[2022-10-03] MEDS: ACIDOPHILUS/BULGARICUS 1 EACH TAB.CHEW GT SCH ×2 (09:24→16:57)
[2022-10-03] MEDS: AMANTADINE SUSP 50 MG/5 ML UDC GT SCH (09:26)
[2022-10-03] MEDS: PANTOPRAZOLE 40 MG VIAL IV SCH ×2 (09:28→16:52)
--- NOTE | 2022-10-03 10:48 | NUR ---
PRESS SMITH HELPER NOTES: PT VOMIT X1 MODERATE AMOUNT AND YELLOW IN COLOR. PRN ZOFRAN 4MG GIVEN IVP BY RENARD GUTIERREZ. GTF HELD AT THIS TIME. WILL CONTINUE TO MONITOR.
--- NOTE | 2022-10-03 11:40 | NUR ---
telemetry rn note blood transfusion 1 unit prbc starred to transfused no adverse reaction noted at this time ,will monitor
[2022-10-03] MEDS: INSULIN REGULAR, HUMAN 100 UNIT/ML 3 ML VIAL SQ PRN ×3 (12:15→23:47)
--- NOTE | 2022-10-03 12:15 | NUR ---
MOLD ENGRAVER NOTES: PT BS AT 189. NO INSULIN GIVEN AT THIS TIME D/T PT ON BLOOD TRANSFUSION. NPO AND NO FLUIDS AT THIS TIME.
[2022-10-03 12:34] LABS: LYMPHOCYTES % (MANUAL) 8 % (16-48); MONOCYTES % (MANUAL) 4 % (0-11.0); NEUTROPHILS % (MANUAL) 88 (42-76)
--- NOTE | 2022-10-03 12:59 | NUR ---
MARKETING SALES MANAGER NOTES: INFORMED MD ABOUT PT VOMITING AND MD SAID IN AN HOUR CHECK GASTRIC RESIDUAL AND IF ITS WITHIN NORMAL LIMITS RESUME GTF. ABNORMAL LABS RELAYED TO MD TIM ROBLES NA 154, BUN 144, CREAT 1.3 WITH NO NEW ORDERS AT THIS TIME. BILATERAL ARM SWELLING MADE AWARE TO MD WITH ORDERS TO CONTINUE TO ELEVATE. MD ALSO SAID TO CONTINUE IVF AT 120CC AN HOUR.
--- NOTE | 2022-10-03 14:35 | NUR ---
telegraph repeater installer note blood transfusion 1 unit prbc completed no adverse reaction noted, will cont to monitor
--- NOTE | 2022-10-03 15:56 | NUR ---
ANATOMICAL EMBALMER NOTES: PT IS AWAKE IN BED. NO SIGNS OF PAIN OR DISCOMFORT AT THIS TIME. ORAL CARE AND SUCTIONING DONE.
--- NOTE | 2022-10-03 17:23 | NUR ---
LUMBER SCALER NOTES UNABLE TO TRANSFUSE 1 UNIT OF PACKED RBC D/T UNAVAILABLE FROM BLOOD BANK. NEW ORDER FOR 1 UNIT PACKED RBC STAT NOW. WILL FOLLOW UP.
--- NOTE | 2022-10-03 18:33 | NUR ---
RAW MILL OPERATOR CLOSING NOTES: PT IS AWAKE IN BED AOX0. NO SIGNS OF PAIN OR DISCOMFORT AT THIS TIME. IV ACCESS ON BILATERAL ARMS PATENT AND INTACT. GTF RUNNING ORDERED. HOB AT 30-45 DEGREES. SIDERAILS UP AT ALL TIMES. BED AT LOWEST SETTING. WILL ENDORSE TO ONCOMING NURSE.
--- NOTE | 2022-10-03 18:36 | NUR ---
CATEGORY CONSULTANT NOTES: BLOOD READY FOR BROOCH MAKER NOVELTY FOR BLOOD TRANSFUSION. WILL ENDORSE TO ONCOMING NURSE.
--- NOTE | 2022-10-03 19:30 | NUR ---
RN OPENING NOTES: RECEIVED PT AWAKE IN BED. NONVERBAL AND UNABLE TO FOLLOW COMMAND. NO SIGNS OF PAIN OR DISCOMFORT AT THIS TIME. PT IS ON A VENTILATOR ON PRESCRIBED SETTINGS AND TOLERATING IT WELL. GT IS PATENT AND INTACT. IV ACCES ON BILATERAL FOREARM 20 GAUGE PATENT AND INTACT. HOB ELEVATED TO 30-45 DEGREES. SIDERAILS UP AT ALL TIMES. BED SET TO LOWEST SETTINGS. WILL CONTINUE TO MONITOR. Addendum: 10/04/22 at 42 by ERIC HARRISON RN G TUBE LEAKING Addendum: 10/04/22 at 42 by ERIC HARRISON RN G TUBE NOT LEAKING WRONG PATIENT
[2022-10-03] MEDS: INSULIN GLARGINE, 100 UNIT/ML CARTRIDGE SQ SCH (22:39)
[2022-10-03] MEDS: VANCOMYCIN 500 MG in IV D5W 100ml IV SCH (23:33)
[2022-10-04] VITALS: BP 110/48
[2022-10-04] MEDS: IPRATROPIUM NEB FS 0.5 MG/2.5 ML AMPUL.NEB NEB SCH ×4 (01:38→19:48)
[2022-10-04] MEDS: ALBUTEROL FS 2.5 MG/3 ML VIAL.NEB NEB SCH ×4 (01:38→19:48)
[2022-10-04 04:00] VITALS: BP 129/55
[2022-10-04] MEDS: BLOOD SUGAR DIAGNOSTIC 1 EACH STRIP IN SCH ×3 (06:18→17:13)
[2022-10-04] MEDS: INSULIN REGULAR, HUMAN 100 UNIT/ML 3 ML VIAL SQ PRN (06:22)
[2022-10-04] MEDS: MEROPENEM 500 MG in IV NS 0.9% 50 ML IV SCH ×2 (06:37→19:41)
--- NOTE | 2022-10-04 06:44 | NUR ---
RN CLOSING NOTE PT SLEEPING IN BED.ALL SIGNIFICANT CHANGES WERE PREVIOUSLY DOCUMENTED. VS STABLE. NPO. PM CARE DONE, TURN AND REPOSITIONED. PT LEFT FOR OR AT 0615 WILL ENDORSE TO AM SHIFT FOR DUNCAN.
[2022-10-04] MEDS: IV 1/2NS 1000 ML 1,000 ML IV PRN ×2 (07:12→16:50)
--- NOTE | 2022-10-04 07:30 | NUR ---
RN NOTES RECEIVED PT AWAKE IN BED. NONVERBAL AND UNABLE TO FOLLOW COMMAND. NO SIGNS OF PAIN OR DISCOMFORT AT THIS TIME. PT IS ON A VENTILATOR ,TOLERATING VENT SETTINGS WELL. IV ACCES ON BILATERAL FOREARM 20 GAUGE PATENT AND INTACT. HOB ELEVATED TO 30-45 DEGREES. SIDE RAILS UP x3, BED SET TO LOWEST SETTINGS. WILL CONTINUE TO MONITOR.
[2022-10-04 08:00] VITALS: BP 125/53
[2022-10-04 08:00] LABS: BASOPHILS % (AUTO) 0.2 % (0.0-2.0); EOSINOPHILS % (AUTO) 2.8 % (0.0-6.0); HEMATOCRIT 30 % (33-45); HEMOGLOBIN 9.5 g/dL (11.5-14.8); LYMPHOCYTES % (AUTO) 9.2 % (20.0-44.0); MEAN CORPUSCULAR HGB CONC 32 g/dl (31.0-36.0); MEAN CORPUSCULAR VOLUME 97 fL (82-100); MONOCYTES # (AUTO) 0.5 K/uL (0.1-1.30); MONOCYTES % (AUTO) 4.8 % (2.0-12.0); NEUTROPHILS # (AUTO) 9.4 K/uL (1.8-8.9); PLATELET COUNT (AUTO) 194 K/uL (150-450); RED BLOOD CELL COUNT(AUTO) 3.07 MIL/uL (4.0-5.2); WHITE BLOOD COUNT (AUTO) 11.3 K/uL (4.3-11.0)
[2022-10-04 08:07] LABS: CALCIUM, SERUM 7.9 mg/dL (8.5-10.1); CREATININE 1.1 mg/dL (0.6-1.3); POTASSIUM 3.2 mmol/L (3.5-5.1)
[2022-10-04] MEDS: ACIDOPHILUS/BULGARICUS 1 EACH TAB.CHEW GT SCH ×2 (08:36→16:48)
[2022-10-04] MEDS: MODAFINIL 100 MG TABLET GT SCH (08:36)
[2022-10-04] MEDS: CHLORHEXIDINE GLUCONATE 15 ML UDC MM SCH ×2 (08:36→21:53)
[2022-10-04] MEDS: ASCORBIC ACID 500 MG TABLET GT SCH (08:36)
[2022-10-04] MEDS: LEVOTHYROXINE SODIUM 75 MCG TABLET GT SCH (08:37)
[2022-10-04] MEDS: CARVEDILOL 12.5 MG TABLET GT SCH ×2 (08:37→16:48)
[2022-10-04] MEDS: MULTIVIT W/MINERALS 1 TAB TABLET GT SCH (08:37)
[2022-10-04] MEDS: LACOSAMIDE ORAL SOLN 50 MG/5 ML UDC GT SCH ×2 (08:41→21:54)
[2022-10-04] MEDS: AMANTADINE SUSP 50 MG/5 ML UDC GT SCH (08:41)
[2022-10-04] MEDS: PANTOPRAZOLE 40 MG/PACK PACK GT SCH ×2 (08:42→16:48)
[2022-10-04 09:23] LABS: BAND % (MANUAL) 4 % (0.0-5.0); EOSINOPHILS % (MANUAL) 1 % (0-4); LYMPHOCYTES % (MANUAL) 8 % (16-48); METAMYELOCYTES % 1 % (0-0); MONOCYTES % (MANUAL) 4 % (0-11.0); MYELOCYTES % 1 % (0-0); NEUTROPHILS % (MANUAL) 81 (42-76)
[2022-10-04] MEDS ORDERED: POTASSIUM CHLORIDE 20 MEQ POWDER PACKET PO ONE (11:00)
[2022-10-04 12:00] VITALS: BP 133/62
[2022-10-04 16:00] VITALS: BP 124/57
--- NOTE | 2022-10-04 19:30 | NUR ---
PROFILE MILL OPERATOR TAPE CONTROL OPENING NOTES: RECEIVED PT AWAKE IN BED. NONVERBAL AND UNABLE TO FOLLOW COMMAND. PT ON MECH VENT, AND TOLERATING WELL, NO S/S OF DISTRESS. GT IS PATENT AND INTACT RUNNING GLUCERNA@40ML/HR.TELE MONITOR READING SR.IV ACCES ON BILATERAL FOREARM 20 GAUGE PATENT AND INTACT, RUNNING 1/2NS@120ML/HR.ALL SAFETY MEASURES IN PLACE: BED LOCKED AND IN LOWEST POSITION, CALL LIGHT WITHIN REACH, SIDE RAILS UP, BED ALARM ON.WILL CONTINUE TO MONITOR FOR DUNCAN
[2022-10-04 20:00] VITALS: BP 122/58
[2022-10-04] MEDS: VANCOMYCIN 500 MG in IV D5W 100ml IV SCH (21:53)
[2022-10-04] MEDS: INSULIN GLARGINE, 100 UNIT/ML CARTRIDGE SQ SCH (22:28)
[2022-10-05] VITALS: BP 147/72
[2022-10-05] MEDS: INSULIN REGULAR, HUMAN 100 UNIT/ML 3 ML VIAL SQ PRN ×2 (00:08→06:00)
[2022-10-05] MEDS: BLOOD SUGAR DIAGNOSTIC 1 EACH STRIP IN SCH ×4 (00:12→17:08)
[2022-10-05] MEDS: ALBUTEROL FS 2.5 MG/3 ML VIAL.NEB NEB SCH ×4 (02:33→20:25)
[2022-10-05] MEDS: IPRATROPIUM NEB FS 0.5 MG/2.5 ML AMPUL.NEB NEB SCH ×4 (02:33→20:25)
[2022-10-05 04:00] VITALS: BP 109/51
[2022-10-05] MEDS: IV 1/2NS 1000 ML 1,000 ML IV PRN ×2 (04:31→13:33)
[2022-10-05] MEDS: MEROPENEM 500 MG in IV NS 0.9% 50 ML IV SCH ×2 (06:06→18:06)
--- NOTE | 2022-10-05 06:45 | NUR ---
INSULATION EXTRUDER OPERATOR CLOSING NOTES NO SIGNIFICANT CHANGES NOTED ON THIS SHIFT, WILL ENDORSE TO MORNING SHIFT NURSE FOR CONTINUITY OF CARE .
[2022-10-05 07:35] LABS: BASOPHILS # (AUTO) 0.1 K/uL (0.0-0.2); BASOPHILS % (AUTO) 0.5 % (0.0-2.0); EOSINOPHILS % (AUTO) 2.8 % (0.0-6.0); HEMATOCRIT 29 % (33-45); HEMOGLOBIN 9.3 g/dL (11.5-14.8); LYMPHOCYTES # (AUTO) 0.7 K/uL (0.8-4.8); LYMPHOCYTES % (AUTO) 6.4 % (20.0-44.0); MEAN CORPUSCULAR HGB CONC 32 g/dl (31.0-36.0); MEAN CORPUSCULAR VOLUME 98 fL (82-100); MONOCYTES # (AUTO) 0.5 K/uL (0.1-1.30); MONOCYTES % (AUTO) 4.7 % (2.0-12.0); NEUTROPHILS # (AUTO) 9.8 K/uL (1.8-8.9); NEUTROPHILS % (AUTO) 85.6 % (43.0-81.0); PLATELET COUNT (AUTO) 109 K/uL (150-450); RED BLOOD CELL COUNT(AUTO) 2.91 MIL/uL (4.0-5.2); WHITE BLOOD COUNT (AUTO) 11.5 K/uL (4.3-11.0)
[2022-10-05 07:51] LABS: MAGNESIUM 2.3 mg/dL (1.8-2.4); PHOSPHORUS 4.1 mg/dL (2.5-4.9)
--- NOTE | 2022-10-05 07:55 | NUR ---
OPEN NOTE PT AWAKE IN BED. NONVERBAL AND UNABLE TO FOLLOW COMMAND. PT ON MECH VENT, AND TOLERATING WELL, NO S/S OF DISTRESS. GT IS PATENT AND INTACT RUNNING GLUCERNA@40ML/HR.TELE MONITOR READING SR.IV ACCES ON BILATERAL FOREARM 20 GAUGE PATENT AND INTACT, RUNNING 1/2NS@120ML/HR.ALL G TUBE IN PLACE NO S/S OF INFILTRATION. SAFETY MEASURES IN PLACE: BED LOCKED AND IN LOWEST POSITION, CALL LIGHT WITHIN REACH, SIDE RAILS UP, BED ALARM ON.
[2022-10-05 08:00] VITALS: BP 131/54
[2022-10-05] MEDS: PANTOPRAZOLE 40 MG/PACK PACK GT SCH ×2 (08:15→16:55)
[2022-10-05] MEDS: ASCORBIC ACID 500 MG TABLET GT SCH (08:22)
[2022-10-05] MEDS: ACIDOPHILUS/BULGARICUS 1 EACH TAB.CHEW GT SCH ×2 (08:23→16:55)
[2022-10-05] MEDS: CHLORHEXIDINE GLUCONATE 15 ML UDC MM SCH ×2 (08:23→20:49)
[2022-10-05] MEDS: MULTIVIT W/MINERALS 1 TAB TABLET GT SCH (08:23)
[2022-10-05] MEDS: LEVOTHYROXINE SODIUM 75 MCG TABLET GT SCH (08:23)
[2022-10-05] MEDS: LACOSAMIDE ORAL SOLN 50 MG/5 ML UDC GT SCH ×2 (08:24→20:49)
[2022-10-05] MEDS: MODAFINIL 100 MG TABLET GT SCH (08:25)
[2022-10-05] MEDS: AMANTADINE SUSP 50 MG/5 ML UDC GT SCH (08:26)
[2022-10-05] MEDS: CARVEDILOL 12.5 MG TABLET GT SCH ×2 (09:00→16:52)
[2022-10-05 12:00] VITALS: BP 133/60
[2022-10-05 15:46] LABS: EOSINOPHILS % (MANUAL) 3 % (0-4); LYMPHOCYTES % (MANUAL) 6 % (16-48); MONOCYTES % (MANUAL) 3 % (0-11.0); NEUTROPHILS % (MANUAL) 88 (42-76)
[2022-10-05 16:00] VITALS: BP 114/46
[2022-10-05] MEDS: GLUCERNA 1.2 1,000 ML BOTTLE NG PRN (17:23)
--- NOTE | 2022-10-05 18:50 | NUR ---
FIELD PROPERTY LOSS SPECIALIST CLOSING NOTES: PATIENT AWAKE, OBTUNDED. ON MECHANICAL VENT OF PORTEX # 7, WITH VENT SETTING FOLLOWS: AC 12, TIDAL VOLUME 400, FI02 28, PEEP OF 5. NO RESPIRATORY DISTRESS NOTED WITH OXYGEN SATURATION OF 100%. ON SR ON TELE MONITOR WITH HR OF 60, IV ACCESS ON BILATERAL FOREARM 20 GAUGE PATENT AND INTACT, RUNNING 1/2 NS @ 120ML/HR, NO S/S INFILTRATION NOTED ON THE IV SITE. G-TUBE SITE PATENT, IN PLACE, NO RESIDUAL, FLUSHES WELL, RUNNING WITH GLUCERNA@40ML/HR. ALL SAFETY MEASURES IMPLEMENTED, BED LOCKED AND IN LOWEST POSITION, WITH BED ALARM ON. CALL LIGHT WITHIN REACH, SIDE RAILS UP. WILL ENDORSE TO INCOMING NURSE FOR CONTINUITY OF CARE.
[2022-10-05 20:00] VITALS: BP 108/47
[2022-10-05] MEDS: VANCOMYCIN 500 MG in IV D5W 100ml IV SCH (20:49)
[2022-10-05] MEDS: INSULIN GLARGINE, 100 UNIT/ML CARTRIDGE SQ SCH (22:08)
[2022-10-06] VITALS: BP 123/57
[2022-10-06] MEDS: BLOOD SUGAR DIAGNOSTIC 1 EACH STRIP IN SCH ×4 (00:31→18:00)
[2022-10-06] MEDS: INSULIN REGULAR, HUMAN 100 UNIT/ML 3 ML VIAL SQ PRN ×3 (00:35→12:50)
[2022-10-06] MEDS: IPRATROPIUM NEB FS 0.5 MG/2.5 ML AMPUL.NEB NEB SCH ×4 (01:37→19:47)
[2022-10-06] MEDS: ALBUTEROL FS 2.5 MG/3 ML VIAL.NEB NEB SCH ×4 (01:37→19:47)
[2022-10-06 04:00] VITALS: BP 142/59
[2022-10-06] MEDS: IV 1/2NS 1000 ML 1,000 ML IV PRN ×2 (04:37→18:13)
[2022-10-06] MEDS: MEROPENEM 500 MG in IV NS 0.9% 50 ML IV SCH ×2 (06:52→19:19)
--- NOTE | 2022-10-06 06:57 | NUR ---
ULTIMATE HOOPS TRAINER CLOSING NOTES NO SIGNIFICANT CHANGES NOTED ON THIS SHIFT, WILL ENDORSE TO MORNING SHIFT NURSE FOR CONTINUITY OF CARE .
[2022-10-06 07:32] LABS: CALCIUM, SERUM 7.9 mg/dL (8.5-10.1); CARBON DIOXIDE 24 mmol/L (21-32); CREATININE 0.7 mg/dL (0.6-1.3); GLUCOSE 167 mg/dL (74-106); MAGNESIUM 2.2 mg/dL (1.8-2.4); PHOSPHORUS 3.3 mg/dL (2.5-4.9); UREA NITROGEN, BLOOD 63 mg/dL (7-18)
[2022-10-06 07:47] LABS: CHLORIDE 116 mmol/L (98-107)
[2022-10-06 07:52] LABS: POTASSIUM 2.8 mmol/L (3.5-5.1); SODIUM SERUM 150 mmol/L (136-145)
[2022-10-06 08:00] VITALS: BP 134/40
[2022-10-06] MEDS: CARVEDILOL 12.5 MG TABLET GT SCH ×2 (09:00→17:00)
[2022-10-06] MEDS: POTASSIUM CL. PREMIX PERIPHER. 50 ML IV SCH ×4 (09:14→12:53)
[2022-10-06] MEDS: CHLORHEXIDINE GLUCONATE 15 ML UDC MM SCH ×2 (09:14→21:49)
[2022-10-06] MEDS: MULTIVIT W/MINERALS 1 TAB TABLET GT SCH (09:15)
[2022-10-06] MEDS: ASCORBIC ACID 500 MG TABLET GT SCH (09:15)
[2022-10-06] MEDS: PANTOPRAZOLE 40 MG/PACK PACK GT SCH ×2 (09:15→17:18)
[2022-10-06] MEDS: LEVOTHYROXINE SODIUM 75 MCG TABLET GT SCH (09:15)
[2022-10-06] MEDS: MODAFINIL 100 MG TABLET GT SCH (09:16)
[2022-10-06] MEDS: ACIDOPHILUS/BULGARICUS 1 EACH TAB.CHEW GT SCH ×2 (09:16→17:17)
--- NOTE | 2022-10-06 09:19 | NUR ---
WOUND CARE CONSULT: PT PRESENTS WITH STAGE 4 SACRAL ULCER, PRESENT ON ADMISSION. PT NOTED TO HAVE GENERALIZED EDEMA WITH AREAS OF SKIN DISCOLORATION. DR PATRICIA HERRON CALLED FOR SURGICAL CONSULT. DISCUSSED SKIN PROTECTION AND WOUND CARE WITH NURSING STAFF. PT IS ON FIRST STEP [facility]. IN AGREEMENT WITH PLAN OF CARE. Addendum: 10/06/22 at 0921 by MONIKA PETTIT WNDNU Amended: Links added.
[2022-10-06] MEDS: LACOSAMIDE ORAL SOLN 50 MG/5 ML UDC GT SCH ×2 (09:22→21:49)
[2022-10-06 09:33] LABS: BASOPHILS % (AUTO) 0.1 % (0.0-2.0); EOSINOPHILS % (AUTO) 2.4 % (0.0-6.0); HEMATOCRIT 28 % (33-45); HEMOGLOBIN 9.3 g/dL (11.5-14.8); LYMPHOCYTES # (AUTO) 1.4 K/uL (0.8-4.8); LYMPHOCYTES % (AUTO) 12.3 % (20.0-44.0); MEAN CORPUSCULAR HGB CONC 33 g/dl (31.0-36.0); MEAN CORPUSCULAR VOLUME 96 fL (82-100); MONOCYTES # (AUTO) 0.6 K/uL (0.1-1.30); MONOCYTES % (AUTO) 5.4 % (2.0-12.0); NEUTROPHILS # (AUTO) 8.9 K/uL (1.8-8.9); NEUTROPHILS % (AUTO) 79.8 % (43.0-81.0); PLATELET COUNT (AUTO) 200 K/uL (150-450); RED BLOOD CELL COUNT(AUTO) 2.96 MIL/uL (4.0-5.2); WHITE BLOOD COUNT (AUTO) 11.1 K/uL (4.3-11.0)
[2022-10-06] MEDS ORDERED: AMANTADINE SUSP 50 MG/5 ML UDC GT SCH (10:00)
[2022-10-06] MEDS: DAKINS QUARTER STRENGTH (0.125%) 480 ML BOTTLE TOP SCH (10:34)
[2022-10-06] MEDS: AMANTADINE SUSP 50 MG/5 ML UDC GT SCH (10:34)
[2022-10-06 12:00] VITALS: BP 140/35
[2022-10-06 16:00] VITALS: BP 125/44
--- NOTE | 2022-10-06 19:00 | NUR ---
RN CLOSING NOTES: PT IS AWAKE IN BED AOX0. NO SIGNS OF PAIN OR DISCOMFORT AT THIS TIME. IV ACCESS ON BILATERAL ARMS PATENT AND INTACT. GTF RUNNING ORDERED. HOB AT 30-45 DEGREES. SIDERAILS UP AT ALL TIMES.KIMBALL CATH PATENT AND DRAINING YELLOW CLEAR URINE,WOUND CARE DONE ORDERED BED AT LOWEST SETTING. WILL ENDORSE TO ONCOMING NURSE.
--- NOTE | 2022-10-06 19:30 | NUR ---
RN OPENING NOTE PT IS OBTUNDED AND NONVERBAL. SKIN IS PINK AND DRY. RESPIRATIONS EVEN AND UNLABORED ON VENT WITH O2 SAT OF 99%. KIMBALL INTACT AND DRAINING APPROPRIATELY. GTUBE FEEDING OF GLUCERNA IN PROGRESS AT 40 ML/HR. IV IS INTACT AND RUNNING 0.45 NS @ 120 ML/HR. SAFETY PRECAUTIONS IN PLACE. BED LOCKED AND AT LOWEST LEVEL WITH 2 RAILS UP. BED ALARM AND CALL LIGHT WITHIN REACH.
[2022-10-06 20:00] VITALS: BP 123/60
[2022-10-06] MEDS: VANCOMYCIN 500 MG in IV D5W 100ml IV SCH (21:47)
[2022-10-06] MEDS: INSULIN GLARGINE, 100 UNIT/ML CARTRIDGE SQ SCH (21:58)
[2022-10-07] VITALS: BP 101/67
[2022-10-07] MEDS: BLOOD SUGAR DIAGNOSTIC 1 EACH STRIP IN SCH ×3 (00:22→11:54)
[2022-10-07] MEDS: INSULIN REGULAR, HUMAN 100 UNIT/ML 3 ML VIAL SQ PRN ×3 (00:22→12:06)
[2022-10-07] MEDS: IPRATROPIUM NEB FS 0.5 MG/2.5 ML AMPUL.NEB NEB SCH ×3 (01:15→14:21)
[2022-10-07] MEDS: ALBUTEROL FS 2.5 MG/3 ML VIAL.NEB NEB SCH ×3 (01:15→14:21)
[2022-10-07 04:00] VITALS: BP 130/58
--- NOTE | 2022-10-07 06:50 | NUR ---
RN CLOSING NOTE PT IS OBTUNDED AND NONVERBAL. SKIN IS PINK AND DRY. EDEMA NOTED IN UPPER AND LOWER EXTREMITIES. RESPIRATIONS EVEN AND UNLABORED ON VENT WITH O2 SAT OF 99%. KIMBALL INTACT AND DRAINING APPROPRIATELY. GTUBE FEEDING OF GLUCERNA IN PROGRESS AT 40 ML/HR X24 HRS. SAFETY PRECAUTIONS IN PLACE. BED LOCKED AND AT LOWEST LEVEL WITH 2 RAILS UP. BED ALARM AND CALL LIGHT WITHIN REACH.
[2022-10-07 07:20] LABS: BASOPHILS % (AUTO) 0.1 % (0.0-2.0); EOSINOPHILS % (AUTO) 2.1 % (0.0-6.0); HEMATOCRIT 30 % (33-45); HEMOGLOBIN 9.7 g/dL (11.5-14.8); MEAN CORPUSCULAR HGB CONC 33 g/dl (31.0-36.0); MEAN CORPUSCULAR VOLUME 97 fL (82-100); MONOCYTES % (AUTO) 6.1 % (2.0-12.0); NEUTROPHILS % (AUTO) 78.7 % (43.0-81.0); PLATELET COUNT (AUTO) 207 K/uL (150-450); RED BLOOD CELL COUNT(AUTO) 3.06 MIL/uL (4.0-5.2); WHITE BLOOD COUNT (AUTO) 10.9 K/uL (4.3-11.0)
[2022-10-07 07:21] LABS: LYMPHOCYTES # (AUTO) 1.4 K/uL (0.8-4.8); MONOCYTES # (AUTO) 0.7 K/uL (0.1-1.30); NEUTROPHILS # (AUTO) 8.6 K/uL (1.8-8.9)
[2022-10-07] MEDS: GLUCERNA 1.2 1,000 ML BOTTLE NG PRN (07:33)
[2022-10-07 07:40] LABS: CALCIUM, SERUM 7.9 mg/dL (8.5-10.1); CARBON DIOXIDE 23 mmol/L (21-32); CHLORIDE 113 mmol/L (98-107); CREATININE 0.5 mg/dL (0.6-1.3); GLUCOSE 96 mg/dL (74-106); MAGNESIUM 2.1 mg/dL (1.8-2.4); PHOSPHORUS 2.5 mg/dL (2.5-4.9); POTASSIUM 3.1 mmol/L (3.5-5.1); SODIUM SERUM 145 mmol/L (136-145); UREA NITROGEN, BLOOD 41 mg/dL (7-18)
[2022-10-07] MEDS: MEROPENEM 500 MG in IV NS 0.9% 50 ML IV SCH (07:41)
[2022-10-07 08:00] VITALS: BP 148/77
[2022-10-07] MEDS: AMANTADINE SUSP 50 MG/5 ML UDC GT SCH (09:00)
[2022-10-07] MEDS: DAKINS QUARTER STRENGTH (0.125%) 480 ML BOTTLE TOP SCH (09:00)
[2022-10-07] MEDS ORDERED: POTASSIUM CHLORIDE 20 MEQ POWDER PACKET PO ONE (11:00)
[2022-10-07] MEDS: ASCORBIC ACID 500 MG TABLET GT SCH (11:27)
[2022-10-07] MEDS: CHLORHEXIDINE GLUCONATE 15 ML UDC MM SCH (11:27)
[2022-10-07] MEDS: ACIDOPHILUS/BULGARICUS 1 EACH TAB.CHEW GT SCH (11:28)
[2022-10-07] MEDS: PANTOPRAZOLE 40 MG/PACK PACK GT SCH (11:28)
[2022-10-07] MEDS: LEVOTHYROXINE SODIUM 75 MCG TABLET GT SCH (11:28)
[2022-10-07] MEDS: CARVEDILOL 12.5 MG TABLET GT SCH (11:28)
[2022-10-07] MEDS: MULTIVIT W/MINERALS 1 TAB TABLET GT SCH (11:28)
[2022-10-07] MEDS: MODAFINIL 100 MG TABLET GT SCH (11:28)
[2022-10-07] MEDS ORDERED: KEY,NONCONTROL,TO KEEP IN PYXI 1 EA MC ONE (11:38)
[2022-10-07] MEDS: LACOSAMIDE ORAL SOLN 50 MG/5 ML UDC GT SCH (11:54)
[2022-10-07 12:00] VITALS: BP 127/53
[2022-10-07] MEDS ORDERED: MERO500V23 IV (13:07)
[2022-10-07] MEDS ORDERED: VANC1VIA34 XX (13:07)
--- NOTE | 2022-10-07 13:38 | NUR ---
RN NOTE PATIENT IS BEING TRANSFERRED TO SUB ACUTE ROOM 274, GAVE REPORT TO RENARD LOPEZ.
[2022-10-07] MEDS ORDERED: GLUCERNA 1.2 1,000 ML BOTTLE NG PRN (14:27)
[2022-10-07] MEDS ORDERED: PROSOURCE / PROSTAT (PYXIS) 30 ML UDC GT SCH (14:30)
[2022-10-08 03:58] LABS: BAND % (MANUAL) 1 % (0.0-5.0); BASOPHILS % (MANUAL) 0 % (0.0-2.0); EOSINOPHILS % (MANUAL) 1 % (0-4); LYMPHOCYTES % (MANUAL) 12 % (16-48); MONOCYTES % (MANUAL) 6 % (0-11.0); NEUTROPHILS % (MANUAL) 80 (42-76)
== END 2022-10-07 16:16 | DRG 870 ==
LOC: ER 18:08 → MEDSG1 10-03 02:15 → TELE1 10-03 05:44
PROVIDERS: ADMIT Nurse Practitioner Acute Care; ATTEND Registered Nurse
PROC: 5A1955Z Respiratory Ventilation, Greater than 96 Consecutive Hours (ICD-10-PCS; principal; 2022-10-02)
PROC: 30233N1 Transfusion of Nonautologous Red Blood Cells into Peripheral Vein, Percutaneous Approach (ICD-10-PCS; 2022-10-03)
PROC: 05H933Z Insertion of Infusion Device into Right Brachial Vein, Percutaneous Approach (ICD-10-PCS; 2022-10-06)
DX: A41.9 Sepsis, unspecified organism (principal); E43 Unspecified severe protein-calorie malnutrition; R65.21 Severe sepsis with septic shock; N17.0 Acute kidney failure with tubular necrosis; I21.A1 Myocardial infarction type 2; D68.59 Other primary thrombophilia; N39.0 Urinary tract infection, site not specified; Z99.11 Dependence on respirator [ventilator] status; I69.354 Hemiplegia and hemiparesis following cerebral infarction affecting left non-dominant side; E87.0 Hyperosmolality and hypernatremia; M46.28 Osteomyelitis of vertebra, sacral and sacrococcygeal region; J96.11 Chronic respiratory failure with hypoxia; G93.49 Other encephalopathy; Z20.822 Contact with and (suspected) exposure to COVID-19; R13.10 Dysphagia, unspecified; Z93.0 Tracheostomy status; Z93.1 Gastrostomy status; I12.9 Hypertensive chronic kidney disease with stage 1 through stage 4 chronic kidney disease, or unspecified chronic kidney disease; N18.9 Chronic kidney disease, unspecified; E11.65 Type 2 diabetes mellitus with hyperglycemia; E11.22 Type 2 diabetes mellitus with diabetic chronic kidney disease; Z79.01 Long term (current) use of anticoagulants; Z79.51 Long term (current) use of inhaled steroids; Z79.4 Long term (current) use of insulin; Z79.899 Other long term (current) drug therapy; Z95.0 Presence of cardiac pacemaker; Z90.49 Acquired absence of other specified parts of digestive tract; I25.10 Atherosclerotic heart disease of native coronary artery without angina pectoris; E78.5 Hyperlipidemia, unspecified; B96.89 Other specified bacterial agents as the cause of diseases classified elsewhere; E11.69 Type 2 diabetes mellitus with other specified complication; R74.01 Elevation of levels of liver transaminase levels; D63.8 Anemia in other chronic diseases classified elsewhere; Z98.890 Other specified postprocedural states; Z74.01 Bed confinement status; E88.09 Other disorders of plasma-protein metabolism, not elsewhere classified; E87.6 Hypokalemia; E86.1 Hypovolemia; E86.0 Dehydration; L89.150 Pressure ulcer of sacral region, unstageable
CPT/HCPCS: 31720; 36410; 36415; 71045-TC; 80048-TC; 80076-TC; 80202-TC; 81001; 82962-TC; 83605-TC; 83735-TC; 84100-TC; 84484-TC; 85025-TC; 85730-TC; 86850-TC; 87040-TC; 87081-TC; 87086-TC; 94003-TC; 94760-TC; 94799-TC; 99082-TC; A4623; A6253; A6403; C9113; C9803; G0378; J1815; J2185; J2405; J3370; J3480; J3490; J7030; J7050; J7060; J7070; P9016